=== PATIENT | male | born 1945 | race Native Hawaiian/Other Pacific Islander ===

== ENCOUNTER 2018-11-28 07:17 | Inpatient (IN) | payer OTHER ==
--- NOTE | 2018-11-28 07:42 | C.PDOC ---
History Of Present Illness 73 y/o male pt sent to the ER with stage 5 chronic kidney disease by dredge captain Dr. Bacon due to kidney function worsening. Pt reports Dr. Bacon wants him to start dialysis and told him to come to the hospital. Pt has no acute complaints at this time. Time Seen by Provider: 11/28/18 07:20 History Per: Patient History/Exam Limitations: no limitations Onset/Duration Of Symptoms: Days Current Symptoms Are (Timing): Still Present Past Medical History Reviewed: Historical Data, Nursing Documentation, Vital Signs Family History: States: No Known Family Hx Review Of Systems Constitutional: Positive for: Other (sent to ER to start dialysis ). Negative for: Fever, Chills Eyes: Negative for: Pain Cardiovascular: Negative for: Chest Pain Respiratory: Negative for: Cough, Shortness of Breath Gastrointestinal: Negative for: Nausea, Vomiting, Abdominal Pain, Diarrhea, Constipation Genitourinary: Negative for: Dysuria Musculoskeletal: Negative for: Neck Pain, Back Pain Skin: Negative for: Rash Neurological: Negative for: Weakness, Numbness Psych: Negative for: Anxiety Physical Exam - Physical Exam Appears: Non-toxic, No Acute Distress, Other (thin) Skin: Warm, Dry Head: Normacephalic Eye(s): bilateral: Normal Inspection Oral Mucosa: Moist Throat: Normal Neck: Normal ROM, Supple Chest: Symmetrical Cardiovascular: Rhythm Regular Respiratory: Normal Breath Sounds Neurological/Psych: Oriented x3, Normal Speech ED Course And Treatment - Laboratory Results Result Diagrams: 11/28/18 08:03 11/28/18 08:03 Medical Decision Making Medical Decision Making: Impression: Dialysis Plans: -- chem labs -- blood work -- EKG -- CXR Chest XR results: Accession No. : [id number] Patient Name / ID : MAHENDRA Alegria / [id number] Exam Date : 11/28/2018 08:02:00 ( Approved ) Study Comment : Sex / Age : M / [id number] Creator : neftali moran Dictator : Bhargavi Rincon MD Senior Maintenance Mechanic : Personnel Associate : Bhargavi Rincon MD Approver2 : Report Date : 11/28/2018 08:06:40 My Comment : Date of service: 11/28/2018 HISTORY: admission, esrd on hd COMPARISON: No prior. FINDINGS: LUNGS: The lungs are hyperinflated and there is peribronchial thickening with chronic changes in both lungs. PLEURA: No pleural effusions or pneumothorax. CARDIOVASCULAR: There is mild cardiomegaly. No aortic atherosclerotic calcifications present. OSSEOUS STRUCTURES: Within normal limits for the patient's age. VISUALIZED UPPER ABDOMEN: Normal. OTHER FINDINGS: None. IMPRESSION: No active pulmonary disease. COPD. 9:12 am EKG shows sinus bradycardia at 54bpm with non-specific st changes. Bun/creatini ne elevated consistent with worsening CKD. K+ WNL. Accepted by Dr. Harp to his service. Disposition - Disposition Disposition: HOSPITALIZED Disposition Time: 07:59 Condition: FAIR - Clinical Impression Clinical Impression: ESRD (end stage renal disease) - Scribe Statement The provider has reviewed the documentation as recorded by the Scribe Elmira Prado Provider Attestation: All medical record entries made by the Scribe were at my direction and personally dictated by me. I have reviewed the chart and agree that the record accurately reflects my personal performance of the history, physical exam, medical decision making, and the department course for this patient. I have also personally directed, reviewed, and agree with the discharge instructions and disposition.
[2018-11-28 08:12] LABS: BASO # 0.1 K/uL (0.0-0.2); BASO % 1.7 % (0.0-2.0); EOS % 1.4 % (0.0-4.0); HEMOGLOBIN 10.2 g/dL (12.0-18.0); LYMPH # 0.8 K/uL (1.0-4.3); LYMPH % 22.6 % (20.0-40.0); MEAN CORPUSCULAR HGB CONC 31.5 g/dL (33.0-37.0); MEAN PLATELET VOLUME 8.6 fL (7.2-11.7); MONO # 0.2 K/uL (0.0-0.8); MONO % 6.8 % (0.0-10.0); NEUT # 2.4 K/uL (1.8-7.0); NEUT % 67.5 % (50.0-75.0); NRBC % 0.1 % (0.0-2.0); RBC 4.63 Mil/uL (4.40-5.90); RED CELL DISTRIBUTION WIDTH 20.5 % (11.5-14.5); WHITE BLOOD COUNT 3.6 K/uL (4.8-10.8)
[2018-11-28 08:18] LABS: MEAN CELL VOLUME 69.8 fL (80.0-94.0)
--- NOTE | 2018-11-28 08:33 | RAD ---
Date of service: 11/28/2018 HISTORY: admission, esrd on hd COMPARISON: No prior. FINDINGS: LUNGS: The lungs are hyperinflated and there is peribronchial thickening with chronic changes in both lungs. PLEURA: No pleural effusions or pneumothorax. CARDIOVASCULAR: There is mild cardiomegaly. No aortic atherosclerotic calcifications present. OSSEOUS STRUCTURES: Within normal limits for the patient's age. VISUALIZED UPPER ABDOMEN: Normal. OTHER FINDINGS: None. IMPRESSION: No active pulmonary disease. COPD.
[2018-11-28 09:06] LABS: ALB/GLOB RATIO 1.3 (1.0-2.1); ALBUMIN 4.4 g/dL (3.5-5.0)
--- NOTE | 2018-11-28 10:45 | CP.PCM.CON ---
History of Present Illness - History of Present Illness History of Present Illness: Consult note for Dr. López. HPI: 73 y/o male with history of ESRD sent to ED by [employer] assistant manager, Dr. Bacon, due to worsening kidney function. Surgery was consulted for dialysis access for emergent hemodialysis and AV fistula placement. Pt has no acute complaints at this time. Denies fever, chills, nausea, vomiting, abdominal pain, diarrhea, confusion, chest pain and shortness of breath. PMHx: ESRD, gout, HTN, anemia PSHx: Denies Meds: Colchicine 500mcg PO BID, tamsulosin 0.4mg PO HS, amlodipine 10mg PO daily Allergy: NKDA Social: denies tobacco, alcohol, drugs Family hx: denies Review of Systems: -Gen: No fever, No chills, No headache, No lethargy, No weakness. -HEENT: No dizziness, No change in vision, No change in hearing, No sore throat, No dysphagia, No nasal congestion, No mucous. -Cardio: No chest pain, No palpitations, No lower extremity edema, No orthopnea. -Resp: No cough, No dyspnea, No hemoptysis, No wheezing, No pain on inspiration. -GI: No abdominal pain, No nausea/vomiting, No diarrhea/constipation, No hematochezia, No hematemesis. -: No dysuria, No urinary freq, No incontinence, No hematuria, No change in urinary stream. -MSK: No back pain, No muscle weakness, No radiating pain. -Skin: No itching, No rash, No lesions. -Neuro: No confusion, No numbness, No tingling, No focal weakness, No radicular pain, No syncope. -Psych: No anxiety, No depression, No H/I, No S/I, No hallucinations. Past Patient History - Past Social History Smoking Status: Never Smoked - CARDIAC Hx Hypertension: Yes - PULMONARY Hx Respiratory Disorders: No - NEUROLOGICAL Hx Neurological Disorder: No - RENAL Hx Chronic Kidney Disease: Yes (stage 5) - MUSCULOSKELETAL/RHEUMATOLOGICAL Hx Gout: Yes - PSYCHIATRIC Hx Substance Use: No - SURGICAL HISTORY Hx Surgeries: No Meds Allergies/Adverse Reactions: Allergies Allergy/AdvReac Type Severity Reaction Status Date / Time No Known Allergies Allergy Verified 11/28/18 07:38 Physical Exam - Constitutional Appears: Non-toxic, No Acute Distress - Head Exam Head Exam: ATRAUMATIC, NORMOCEPHALIC - Eye Exam Eye Exam: EOMI, Normal appearance - ENT Exam ENT Exam: Mucous Membranes Moist - Neck Exam Neck exam: Positive for: Normal Inspection - Respiratory Exam Respiratory Exam: Clear to Auscultation Bilateral, NORMAL BREATHING PATTERN. absent: Rales, Rhonchi, Wheezes, Respiratory Distress - Cardiovascular Exam Cardiovascular Exam: REGULAR RHYTHM, +S1, +S2. absent: Systolic Murmur - GI/Abdominal Exam GI & Abdominal Exam: Normal Bowel Sounds, Soft. absent: Guarding, Rebound, Tenderness - Extremities Exam Extremities exam: Positive for: full ROM, normal inspection, pedal pulses present. Negative for: pedal edema, tenderness - Neurological Exam Neurological exam: Alert, CN II-XII Intact (grossly), Oriented x3 - Psychiatric Exam Psychiatric exam: Normal Affect, Normal Mood - Skin Skin Exam: Dry, Intact, Normal Color, Warm Results - Vital Signs Recent Vital Signs: Last Vital Signs Temp 97.6 F 11/28/18 08:56 Pulse 62 11/28/18 08:56 Resp 16 11/28/18 08:56 BP 125/81 11/28/18 08:56 Pulse Ox 100 11/28/18 08:56 - Labs Result Diagrams: 11/28/18 08:03 11/28/18 08:03 Labs: Laboratory Results - last 24 hr 11/28/18 11/28/18 11/28/18 08:03 08:03 08:03 WBC 3.6 L RBC 4.63 Hgb 10.2 L Hct 32.3 L MCV 69.8 L MCH 22.0 L MCHC 31.5 L RDW 20.5 H Plt Count 224 MPV 8.6 Neut % (Auto) 67.5 Lymph % (Auto) 22.6 Mayes % (Auto) 6.8 Eos % (Auto) 1.4 Baso % (Auto) 1.7 Neut # (Auto) 2.4 Lymph # (Auto) 0.8 L Mayes # (Auto) 0.2 Eos # (Auto) 0.0 Baso # (Auto) 0.1 Differential Comment PT 11.0 INR 1.0 APTT 33 Sodium 133 Potassium 3.8 Chloride 102 Carbon Dioxide 18 L Anion Gap 18 BUN 140 H* Creatinine 6.2 H Est GFR ( Amer) 11 Est GFR (Non-Af Amer) 9 Random Glucose 105 Calcium 9.0 Total Bilirubin 0.4 AST 28 ALT 19 L Alkaline Phosphatase 85 Total Protein 7.8 Albumin 4.4 Globulin 3.4 Albumin/Globulin Ratio 1.3 Assessment & Plan - Assessment and Plan (Free Text) Assessment: 73 y/o male with history of ESRD with worsening kidney function admitted for emergent dialysis. Surgery consulted for dialysis access and AV fistula placement. Plan: -permacath placement 11/28 -F/u Vein mapping for AV fistula -Plan for AV fistula placement 11/30 Further recs as per Dr. López. Hazel Quintero, PGY-1
--- NOTE | 2018-11-28 11:29 | CP.PCM.CON ---
History of Present Illness - History of Present Illness History of Present Illness: pt is seen and examined, full consult is dictated # 1. HTn 2. ESRD 3. Gout 4. Anemia 5. ? dm vasuclar surgery consult for perma cath and avf hd after access check hept.b.c serology, saran,c3,c4, po4, pth Past Patient History - Past Social History Smoking Status: Never Smoked - CARDIAC Hx Hypertension: Yes - PULMONARY Hx Respiratory Disorders: No - NEUROLOGICAL Hx Neurological Disorder: No - RENAL Hx Chronic Kidney Disease: Yes (stage 5) - MUSCULOSKELETAL/RHEUMATOLOGICAL Hx Gout: Yes - PSYCHIATRIC Hx Substance Use: No - SURGICAL HISTORY Hx Surgeries: No Meds Allergies/Adverse Reactions: Allergies Allergy/AdvReac Type Severity Reaction Status Date / Time No Known Allergies Allergy Verified 11/28/18 07:38 Results - Vital Signs Recent Vital Signs: Last Vital Signs Temp 97.6 F 11/28/18 08:56 Pulse 62 11/28/18 08:56 Resp 16 11/28/18 08:56 BP 125/81 11/28/18 08:56 Pulse Ox 100 11/28/18 08:56 - Labs Result Diagrams: 11/28/18 08:03 11/28/18 08:03 Labs: Laboratory Results - last 24 hr 11/28/18 11/28/18 11/28/18 08:03 08:03 08:03 WBC 3.6 L RBC 4.63 Hgb 10.2 L Hct 32.3 L MCV 69.8 L MCH 22.0 L MCHC 31.5 L RDW 20.5 H Plt Count 224 MPV 8.6 Neut % (Auto) 67.5 Lymph % (Auto) 22.6 White % (Auto) 6.8 Eos % (Auto) 1.4 Baso % (Auto) 1.7 Neut # (Auto) 2.4 Lymph # (Auto) 0.8 L White # (Auto) 0.2 Eos # (Auto) 0.0 Baso # (Auto) 0.1 Differential Comment PT 11.0 INR 1.0 APTT 33 Sodium 133 Potassium 3.8 Chloride 102 Carbon Dioxide 18 L Anion Gap 18 BUN 140 H* Creatinine 6.2 H Est GFR ( Amer) 11 Est GFR (Non-Af Amer) 9 Random Glucose 105 Calcium 9.0 Total Bilirubin 0.4 AST 28 ALT 19 L Alkaline Phosphatase 85 Total Protein 7.8 Albumin 4.4 Globulin 3.4 Albumin/Globulin Ratio 1.3
[2018-11-28 11:56] LABS: IRON 99 ug/dL (49-181)
[2018-11-28 12:03] LABS: HEPATITIS B SURFACE AG Negative (NEGATIVE)
[2018-11-28 12:05] LABS: % IRON SATURATION 36 (20-55); TOTAL IRON BINDING CAPACITY 276 ug/dL (250-450)
[2018-11-28 12:10] LABS: HEPATITIS A IGM NEGATIVE (NEGATIVE); HEPATITIS B CORE AB NEGATIVE (NEGATIVE)
[2018-11-28 12:12] LABS: HEPATITIS B SURFACE AG Negative (NEGATIVE)
[2018-11-28 12:17] LABS: HEPATITIS B CORE AB NEGATIVE (NEGATIVE)
[2018-11-28 12:20] LABS: HEPATITIS C ANTIBODY NEGATIVE (NEGATIVE)
[2018-11-28 12:29] LABS: HEPATITIS C ANTIBODY NEGATIVE (NEGATIVE)
[2018-11-28] MEDS: Dextrose 5%/0.9% NS 1,000 ML IV SCH (12:50)
[2018-11-28] MEDS ORDERED: HEPARIN-NS 5,000 UNITS/500 ML 5,000 UNIT/500 ML BAG IV ONE (13:31)
[2018-11-28] MEDS ORDERED: Lidocaine 2% MPF (5 ml) Inj ONE (13:32)
[2018-11-28] MEDS ORDERED: ceFAZolin 1 gm in NS 1 GM/100 ML BAG IVPB ONE (13:49)
[2018-11-28] MEDS ORDERED: Propofol 10 mg/ml Inj (20 ML) ONE (13:54)
[2018-11-28] MEDS ORDERED: Midazolam 2 MG/2 ML VIAL ONE (13:55)
[2018-11-28] MEDS ORDERED: Lidocaine Hydrochloride 5 ML INJ ONE (14:28)
--- NOTE | 2018-11-28 14:44 | PCM.SURG1 ---
Surgeon's Initial Post Op Note - Surgeon's Notes Surgeon: Dr. López E Commerce Merchant: Dr. López Type of Anesthesia: MAC Pre-Operative Diagnosis: ESRD requiring dialysis Operative Findings: see dictation Post-Operative Diagnosis: same Operation Performed: ultrasound-guided permacath placement w/ intra-operative fluoroscopy Specimen/Specimens Removed: none Estimated Blood Loss: EBL {In ML}: 10 Blood Products Given: N/A Drains Used: No Drains Post-Op Condition: Good Date of Surgery/Procedure: 11/28/18 Time of Surgery/Procedure: 14:43
--- NOTE | 2018-11-28 15:24 | RAD ---
Date of service: 11/28/2018 HISTORY: permacath placement COMPARISON: 11/28/2018 FINDINGS: The right PermCath terminates at the cavoatrial junction. LUNGS: The lungs are hyperinflated and there is peribronchial thickening with chronic changes in both lungs. There is mild pulmonary venous congestion. No focal consolidation. PLEURA: No pleural effusions or pneumothorax. CARDIOVASCULAR: Mild cardiomegaly. There are aortic atherosclerotic calcifications present. OSSEOUS STRUCTURES: Within normal limits for the patient's age. VISUALIZED UPPER ABDOMEN: Normal. OTHER FINDINGS: None. IMPRESSION: Right PermCath terminates at the cavoatrial junction. Mild cardiomegaly and pulmonary venous congestion. Background of COPD.
[2018-11-28] MEDS ORDERED: Epoetin Alfa 10,000 unit/ml Dialysis IV ONE (17:00)
[2018-11-28] MEDS ORDERED: Epoetin Alfa Dialysis 2000 U/ML Inj IV ONE (17:00)
[2018-11-28] MEDS ORDERED: Paricalcitol 2 mcg/ml Inj IV ONE (17:00)
--- NOTE | 2018-11-29 00:52 | OP ---
PROCEDURE DATE: 11/28/2018 PREOPERATIVE DIAGNOSIS: Renal failure. POSTOPERATIVE DIAGNOSIS: Renal failure. PROCEDURE CARRIED OUT: Placement of Perm-A-Cath in the right jugular vein with C-arm fluoroscopy, ultrasound-guided puncture, and micropuncture technique. SURGEON: Jack López Jr., MD [employer] OPERATOR: Veronica Cardoza DO ANESTHESIA: Local with sedation. ANESTHESIOLOGIST: Lara Sanchez CRNA. INDICATIONS: The patient is an elderly Citizen [place] man, admitted to the hospital, requires urgent dialysis. OPERATIVE FINDINGS: Catheter was inserted uneventfully via the jugular vain. DESCRIPTION OF PROCEDURE: The patient was given intravenous antibiotics. Using ultrasound guidance and micropuncture technique, the right jugular vein was punctured. Under fluoroscopic control, the catheter was advanced centrally, was exchanged for stiff guidewire and then the catheter was deployed with the tip in the superior vena cava of the right atrial junction, brought out on the right chest wall and originated on the right chest wall, terminated in the superior vena cava and then went to the jugular vein. It was flushed with heparinized saline with good return and good flush. Operation carried out was Perm-A-Cath in the right jugular vein with C-arm fluoroscopy, ultrasound-guided puncture. Ultrasound images of the neck showed the vein was 14 mm in diameter with normal compressibility and no intraluminal thrombosis. Jack López Jr., MD
--- NOTE | 2018-11-29 01:35 | CON ---
DATE: 11/28/2018 RENAL CONSULTATION LOCATION: The patient is located in room 568, bed B. REQUESTED BY: Skye Harp MD REASON FOR RENAL CONSULTATION: End-stage renal disease and for initiation of the renal replacement therapy. HISTORY OF PRESENT ILLNESS: Mr. Fallon is a 73-year-old very thin-built, cachectic, very pleasant [place] male with a past medical history significant for hypertension, gout, chronic kidney disease for few years, and anemia, who was sent to the office yesterday and found to have a recent blood work from 11/20/2018 with a BUN of 128 and creatinine of 5.5 with a GFR about 7 or 8 mL per minute, who was advised renal replacement therapy and advised to go to the emergency room for initiation of renal replacement therapy. The patient denied any chest pain or palpitation. Denies any fever or cough. Denies any nausea or vomiting. Appetite is fair. Denies any urinary symptoms. Denies any edema of the legs. PAST MEDICAL HISTORY: Significant for longstanding hypertension, gout, chronic kidney disease, and anemia. PAST SURGICAL HISTORY: Denies. ALLERGIES: NO KNOWN DRUG ALLERGIES. SOCIAL HISTORY: Denies any smoking, denies any alcohol or drugs. PERSONAL HISTORY: He is , and he has a very supportive family. CURRENT MEDICATIONS: Include IV fluids D5 normal saline at 50 mL per hour, Flomax 0.4 mg p.o. at bedtime, influenza vaccine x1, amlodipine 10 mg p.o. daily, pneumococcal vaccine x1, and Zofran 4 mg IV every 6 hours p.r.n. HOME MEDICATIONS: Include colchicine 500 p.o. b.i.d., Flomax, amlodipine, and Procrit. REVIEW OF SYSTEMS: Significant for worsening renal function and feeling weak, and all other review of systems are reviewed and are negative. PHYSICAL EXAMINATION: As follows: VITAL SIGNS: Blood pressure 120/79, pulse 60, respirations 16, temperature 97.3. Height 5 feet 5 inches, and weight is 90 pounds. GENERAL: Mr. Fallon is a 73-year-old elderly, thin-built, cachectic [place] male, not in acute distress. HEENT: Pupils normal, reactive to light and accommodation. Conjunctivae pink. Sclerae anicteric. Tongue is moist, and trachea is midline. LUNGS: Symmetric on both sides. Bilateral breath sounds present. Clear to auscultation. CARDIOVASCULAR SYSTEM: [place] at the fifth intercostal space and midclavicular line. S1, S2 audible. No murmur or gallop. ABDOMEN: Normal in appearance, soft, tympanitic. No guarding. No rigidity. No hepatosplenomegaly. CENTRAL NERVOUS SYSTEM: The patient is alert, awake, oriented x3. Nonfocal neuro examination. Cranial nerves II through XII grossly intact. Sensory and motor system is within normal limits. EXTREMITIES: No cyanosis. No clubbing. No edema. LABORATORY DATA: Include as follows: As of 11/28/2018, WBC 3.6, hemoglobin 10.2, hematocrit is 32.3, platelets 224. PT 11, PTT 33. Sodium 133, potassium 3.8, chloride 102, CO2 18, BUN of 140, creatinine 6.2, and glucose is 105, calcium is 9. Phosphorus 5.4, iron 99, TIBC 276, saturation 36, ferritin is 288. Total bili 0.4, AST 28, ALT 19, alkaline phosphatase 85, total protein 7.8, and albumin is 4.4. Hepatitis A IgM antibody is negative, hepatitis B surface antigen is negative, hepatitis B surface antibody is negative, hepatitis B core antibody IgM is negative, and hepatitis C antibody is negative. Chest x-ray, no pleural effusion or pneumothorax, and right PermCath terminates at the cavoatrial junction, mild cardiomegaly. ASSESSMENT AND PLAN: In summary, Mr. Fallon is a 73-year-old elderly, cachectic, thin-built [place] male with a history of hypertension, gout, end-stage renal disease, anemia with worsening renal function, and acidosis. 1. 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 2. Metabolic acidosis. 3. Hypertension. 4. Gout, asymptomatic. Discussed with the patient and the patient's family in detail regarding the need for renal replacement therapy. Agreed for the hemodialysis, and the patient signed the consent for initiation of the renal replacement therapy and dialysis. Vascular surgery consult for PermCath placement, AV fistula placement. We will schedule for hemodialysis after PermCath placement. Continue his current medications, Flomax, Norvasc, and also we will add Nephro-Brandy 1 tablet daily and Procrit during dialysis, Zemplar during dialysis. We will follow with you. Thank you for allowing me to participate in your patient's care, and we will request social service consult for outpatient hemodialysis unit placement. Thank you for allowing me to participate in your patient's care. Simran Bacon MD
[2018-11-29 07:30] LABS: BASO % 0.9 % (0.0-2.0); EOS % 0.6 % (0.0-4.0); HEMOGLOBIN 9.7 g/dL (12.0-18.0); LYMPH # 0.6 K/uL (1.0-4.3); LYMPH % 13.1 % (20.0-40.0); MEAN CELL VOLUME 69.7 fL (80.0-94.0); MEAN CORPUSCULAR HGB CONC 31.6 g/dL (33.0-37.0); MEAN PLATELET VOLUME 8.8 fL (7.2-11.7); MONO # 0.3 K/uL (0.0-0.8); MONO % 6.3 % (0.0-10.0); NEUT # 3.9 K/uL (1.8-7.0); NEUT % 79.1 % (50.0-75.0); NRBC % 0.1 % (0.0-2.0); RBC 4.41 Mil/uL (4.40-5.90); RED CELL DISTRIBUTION WIDTH 19.9 % (11.5-14.5); WHITE BLOOD COUNT 4.9 K/uL (4.8-10.8)
[2018-11-29 08:19] LABS: ALB/GLOB RATIO 1.2 (1.0-2.1); ALBUMIN 3.8 g/dL (3.5-5.0); CALCIUM 8.4 mg/dl (8.6-10.4)
--- NOTE | 2018-11-29 08:24 | RAD ---
Date of service: 11/28/2018 PROCEDURE: Intraoperative Fluoroscopy. HISTORY: RENAL FAILURE FINDINGS: Fluoroscopic assistance was provided for PermCath placement. Please refer to the operative report from Dr. Jack López.
[2018-11-29] MEDS: Dextrose 5%/0.9% NS 1,000 ML IV SCH (09:04)
--- NOTE | 2018-11-29 10:18 | CP.PCM.PN ---
Subjective - Date & Time of Evaluation Date of Evaluation: 11/29/18 Time of Evaluation: 10:17 - Subjective Subjective: pt is seen and examined, follow up consult is dictated #[id number] Objective - Vital Signs/Intake and Output Vital Signs (last 24 hours): Temp Pulse Resp BP Pulse Ox 98.0 F 57 L 20 132/79 100 11/29/18 07:00 11/29/18 07:27 11/29/18 07:00 11/29/18 07:00 11/29/18 07:00 Intake and Output: 11/29/18 11/29/18 06:59 18:59 Intake Total 400 Balance 400 - Medications Medications: Current Medications Amlodipine Besylate (Norvasc) 10 mg PO DAILY [facility] Last Admin: 11/29/18 09:28 Dose: Not Given Heparin Sodium (Porcine) (Heparin) 5,000 units SC Q12 [facility] Last Admin: 11/29/18 09:28 Dose: Not Given Dextrose/Sodium Chloride (Dextrose 5%/0.9% Ns 1000 Ml) 1,000 mls @ 50 mls/hr IV .Q20H [facility] Last Admin: 11/29/18 09:04 Dose: 50 mls/hr Influenza Virus Vaccine (Flucelvax Quad [id number] Syr) 60 mcg IM .ONCE ONE Stop: 11/30/18 10:01 Ondansetron HCl (Zofran Inj) 4 mg IVP Q6 PRN PRN Reason: Nausea/Vomiting Last Admin: 11/28/18 19:26 Dose: 4 mg Pneumococcal Polyvalent Vaccine (Pneumovax 23 Vaccine) 0.5 ml IM .ONCE ONE Stop: 11/30/18 10:01 Tamsulosin HCl (Flomax) 0.4 mg PO HS [facility] Last Admin: 11/28/18 21:29 Dose: 0.4 mg - Labs Labs: 11/29/18 07:12 11/29/18 07:12 PT 11.0 SECONDS (9.7-12.2) 11/28/18 08:03 INR 1.0 11/28/18 08:03 APTT 33 SECONDS (21-34) 11/28/18 08:03
--- NOTE | 2018-11-29 12:07 | CP.PCM.PN ---
Subjective - Date & Time of Evaluation Date of Evaluation: 11/29/18 Time of Evaluation: 12:03 - Subjective Subjective: Vascular Surgery Dr. López Pt S&E @dialysis. Pt had permacath placement yesterday. pt tolerated procedure well w/ no complications. No acute events overnight. pt has no complaints. Objective - Vital Signs/Intake and Output Vital Signs (last 24 hours): Temp Pulse Resp BP Pulse Ox 97.3 F L 57 L 16 146/91 H 100 11/29/18 09:45 11/29/18 09:45 11/29/18 09:45 11/29/18 11:00 11/29/18 09:45 Intake and Output: 11/29/18 11/29/18 06:59 18:59 Intake Total 400 Balance 400 - Medications Medications: Current Medications Amlodipine Besylate (Norvasc) 10 mg PO DAILY [facility] Last Admin: 11/29/18 09:28 Dose: Not Given Heparin Sodium (Porcine) (Heparin) 5,000 units SC Q12 [facility] Last Admin: 11/29/18 09:28 Dose: Not Given Dextrose/Sodium Chloride (Dextrose 5%/0.9% Ns 1000 Ml) 1,000 mls @ 50 mls/hr IV .Q20H [facility] Last Admin: 11/29/18 09:04 Dose: 50 mls/hr Influenza Virus Vaccine (Flucelvax Quad [id number] Syr) 60 mcg IM .ONCE ONE Stop: 11/30/18 10:01 Ondansetron HCl (Zofran Inj) 4 mg IVP Q6 PRN PRN Reason: Nausea/Vomiting Last Admin: 11/28/18 19:26 Dose: 4 mg Pneumococcal Polyvalent Vaccine (Pneumovax 23 Vaccine) 0.5 ml IM .ONCE ONE Stop: 11/30/18 10:01 Tamsulosin HCl (Flomax) 0.4 mg PO HS [facility] Last Admin: 11/28/18 21:29 Dose: 0.4 mg - Labs Labs: 11/29/18 07:12 11/29/18 07:12 PT 11.0 SECONDS (9.7-12.2) 11/28/18 08:03 INR 1.0 11/28/18 08:03 APTT 33 SECONDS (21-34) 11/28/18 08:03 - Constitutional Appears: Non-toxic, No Acute Distress - Head Exam Head Exam: NORMAL INSPECTION - Eye Exam Eye Exam: Normal appearance - ENT Exam ENT Exam: Mucous Membranes Moist - Neck Exam Additional comments: RIJ permacath in place. dressing c/d/i no hematoma appreciated - Respiratory Exam Respiratory Exam: NORMAL BREATHING PATTERN. absent: Accessory Muscle Use, Respiratory Distress - Cardiovascular Exam Cardiovascular Exam: REGULAR RHYTHM. absent: Bradycardia, Tachycardia - GI/Abdominal Exam GI & Abdominal Exam: Soft. absent: Tenderness - Extremities Exam Extremities Exam: Normal Inspection - Neurological Exam Neurological Exam: Alert, Awake, Oriented x3 - Psychiatric Exam Psychiatric exam: Normal Affect, Normal Mood - Skin Skin Exam: Dry, Intact, Normal Color, Warm Assessment and Plan - Assessment and Plan (Free Text) Assessment: 73 y/o M w/ new-onset ESRD now requiring HD Plan: - f/u vein mapping - plan for OR tomorrow (11/30) for AVF creation - NPO@[place] - cont medical management Pt discussed w/ Dr. Rene Cardoza DO PGY3
--- NOTE | 2018-11-29 17:35 | CP.PCM.HP ---
History of Present Illness - History of Present Illness History of Present Illness: CC ESRD HPI 73 y/o male with history of ESRD sent to ED by fabric stretcher, Dr. Bacon, due to worsening kidney function. Surgery was consulted for dialysis access for emergent hemodialysis and AV fistula placement. Pt has no acute complaints at this time. Denies fever, chills, nausea, vomiting, abdominal pain, diarrhea, confusion, chest pain and shortness of breath. Present on Admission - Present on Admission Any Indicators Present on Admission: No Review of Systems - Constitutional Constitutional: Anorexia, Fatigue, Weakness - EENT Ears: Decreased Hearing - Cardiovascular Cardiovascular: Lightheadedness - Respiratory Respiratory: Dyspnea - Gastrointestinal Gastrointestinal: Nausea - Musculoskeletal Musculoskeletal: Muscle Weakness Past Patient History - Past Medical History & Family History Past Medical History?: Yes - Past Social History Smoking Status: Never Smoked - CARDIAC Hx Hypertension: Yes - PULMONARY Hx Respiratory Disorders: No - NEUROLOGICAL Hx Neurological Disorder: No - HEENT Hx HEENT Problems: No - RENAL Hx Chronic Kidney Disease: Yes (stage 5) - ENDOCRINE/METABOLIC Hx Endocrine Disorders: No - HEMATOLOGICAL/ONCOLOGICAL Hx Blood Disorders: No - INTEGUMENTARY Hx Dermatological Problems: No - MUSCULOSKELETAL/RHEUMATOLOGICAL Hx Gout: Yes - GASTROINTESTINAL Hx Gastrointestinal Disorders: No - GENITOURINARY/GYNECOLOGICAL Hx Genitourinary Disorders: No - PSYCHIATRIC Hx Substance Use: No - SURGICAL HISTORY Hx Surgeries: No - ANESTHESIA Hx Anesthesia: No Hx Anesthesia Reactions: No Hx Malignant Hyperthermia: No Has any member of the family had a problem w/ anesthesia?: No Meds Allergies/Adverse Reactions: Allergies Allergy/AdvReac Type Severity Reaction Status Date / Time No Known Allergies Allergy Verified 11/28/18 07:38 Physical Exam - Constitutional Appears: Non-toxic - Head Exam Head Exam: NORMAL INSPECTION - Eye Exam Eye Exam: absent: Scleral icterus - ENT Exam ENT Exam: Mucous Membranes Moist - Neck Exam Neck exam: Positive for: Full Rom - Respiratory Exam Respiratory Exam: Clear to Auscultation Bilateral - Cardiovascular Exam Cardiovascular Exam: REGULAR RHYTHM - GI/Abdominal Exam GI & Abdominal Exam: Soft - Extremities Exam Extremities exam: Negative for: pedal edema - Neurological Exam Neurological exam: Alert, Oriented x3 Results - Vital Signs Recent Vital Signs: Last Vital Signs Temp 97.9 F 11/29/18 15:00 Pulse 54 L 11/29/18 15:39 Resp 18 11/29/18 15:00 BP 138/80 11/29/18 15:00 Pulse Ox 100 11/29/18 15:00 - Labs Result Diagrams: 11/29/18 07:12 11/29/18 07:12 Labs: Laboratory Results - last 24 hr 11/28/18 11/29/18 11/29/18 11:09 07:12 07:12 WBC 4.9 RBC 4.41 Hgb 9.7 L Hct 30.7 L MCV 69.7 L MCH 22.0 L MCHC 31.6 L RDW 19.9 H Plt Count 160 MPV 8.8 Neut % (Auto) 79.1 H Lymph % (Auto) 13.1 L [place] % (Auto) 6.3 Eos % (Auto) 0.6 Baso % (Auto) 0.9 Neut # (Auto) 3.9 Lymph # (Auto) 0.6 L [place] # (Auto) 0.3 Eos # (Auto) 0.0 Baso # (Auto) 0.0 Sodium 133 Potassium 3.6 Chloride 99 Carbon Dioxide 23 Anion Gap 15 BUN 69 H Creatinine 3.8 H Est GFR ( Amer) 19 Est GFR (Non-Af Amer) 16 Random Glucose 114 H Calcium 8.4 L Total Bilirubin 0.3 AST 24 ALT 28 Alkaline Phosphatase 66 Total Protein 6.9 Albumin 3.8 Globulin 3.1 Albumin/Globulin Ratio 1.2 PTH Intact Whole Molec 350 H Assessment & Plan - Assessment and Plan (Free Text) Assessment: ESRD HTN Gout Anemia Plan: AV Fistula Vascular consult with Dr Mar Renal consult with Dr Bacon - Date & Time Date: 11/28/18 Time: 09:00
--- NOTE | 2018-11-29 17:46 | CP.PCM.PN ---
Subjective - Date & Time of Evaluation Date of Evaluation: 11/29/18 Time of Evaluation: 09:35 - Subjective Subjective: s/p permacath implant no complication Objective - Vital Signs/Intake and Output Vital Signs (last 24 hours): Temp Pulse Resp BP Pulse Ox 97.9 F 54 L 18 138/80 100 11/29/18 15:00 11/29/18 15:39 11/29/18 15:00 11/29/18 15:00 11/29/18 15:00 Intake and Output: 11/29/18 11/29/18 06:59 18:59 Intake Total 400 Balance 400 - Medications Medications: Current Medications Amlodipine Besylate (Norvasc) 10 mg PO DAILY [facility] Last Admin: 11/29/18 09:28 Dose: Not Given Heparin Sodium (Porcine) (Heparin) 5,000 units SC Q12 [facility] Last Admin: 11/29/18 09:28 Dose: Not Given Dextrose/Sodium Chloride (Dextrose 5%/0.9% Ns 1000 Ml) 1,000 mls @ 50 mls/hr IV .Q20H [facility] Last Admin: 11/29/18 09:04 Dose: 50 mls/hr Influenza Virus Vaccine (Flucelvax Quad [id number] Syr) 60 mcg IM .ONCE ONE Stop: 11/30/18 10:01 Ondansetron HCl (Zofran Inj) 4 mg IVP Q6 PRN PRN Reason: Nausea/Vomiting Last Admin: 11/28/18 19:26 Dose: 4 mg Pneumococcal Polyvalent Vaccine (Pneumovax 23 Vaccine) 0.5 ml IM .ONCE ONE Stop: 11/30/18 10:01 Tamsulosin HCl (Flomax) 0.4 mg PO HS [facility] Last Admin: 11/28/18 21:29 Dose: 0.4 mg - Labs Labs: 11/29/18 07:12 11/29/18 07:12 PT 11.0 SECONDS (9.7-12.2) 11/28/18 08:03 INR 1.0 11/28/18 08:03 APTT 33 SECONDS (21-34) 11/28/18 08:03 - Constitutional Appears: Non-toxic - Head Exam Head Exam: NORMAL INSPECTION - Eye Exam Eye Exam: absent: Scleral icterus - ENT Exam ENT Exam: Mucous Membranes Moist - Neck Exam Neck Exam: Full ROM - Respiratory Exam Respiratory Exam: Clear to Ausculation Bilateral - Cardiovascular Exam Cardiovascular Exam: REGULAR RHYTHM - GI/Abdominal Exam GI & Abdominal Exam: Soft - Extremities Exam Extremities Exam: absent: Pedal Edema Assessment and Plan - Assessment and Plan (Free Text) Assessment: ESRD HTN Anemia Gout Plan: Dialysis as per renal For AV fistula
--- NOTE | 2018-11-30 01:47 | PN ---
DATE: 11/29/2018 LOCATION: The patient is located in Room 568, Bed B. REQUESTED BY: Dr. Skye Harp. REASON FOR FOLLOWUP: End-stage renal disease, for continuation of hemodialysis. SUBJECTIVE: Mr. Fallon is a 73-year-old, elderly, very cachectic, thin-built [place] male with a history of hypertension, gout, anemia and end-stage renal disease, was admitted yesterday with worsening renal function and the patient underwent PermCath placement yesterday and started on hemodialysis. The patient is being dialyzed again today for second treatment and feeling better. No complaints. No chest pain, no palpitation. No fever. No cough. No abdominal pain. No nausea, vomiting, diarrhea. PHYSICAL EXAMINATION: VITAL SIGNS: Blood pressure 138/80, pulse , respirations 18, temperature 97.9, saturation 100%. Height 5 feet 5 inches and weight is 190 pounds. GENERAL: Mr. Fallon is a 73-year-old, elderly, thin-built, cachectic [place] male, moderately built, moderately nourished, not in acute distress. HEENT: Pupils normal, react to light and accommodation. Conjunctivae pink. Sclerae anicteric. Tongue is moist and trachea is midline. LUNGS: Symmetric on both sides. Bilateral breath sounds present. Clear to auscultation. CARDIOVASCULAR SYSTEM: S1, S2 audible. No murmur or gallop. ABDOMEN: Normal in appearance, soft, tympanitic. No guarding, no rigidity. No hepatosplenomegaly. CENTRAL NERVOUS SYSTEM: The patient is alert, awake, oriented x3. Nonfocal neuro examination. Cranial nerves II through XII grossly intact. Sensory and motor system is within normal limits. EXTREMITIES: No cyanosis, no clubbing, no edema. CURRENT MEDICATIONS: Include as follows: IV fluids of D5 half-normal saline at 50 mL/hour, Flomax 0.4 mg p.o. at bedtime, amlodipine 10 mg p.o. daily, subcu heparin 5000 units every 12 hours, PhosLo 667 mg p.o. b.i.d., and Zofran 4 mg IV every 6 hours p.r.n. LABORATORY DATA: Includes as follows: As of 11/29/2018, WBC 4.9, hemoglobin 9.7, hematocrit is 30.9, MCV 69.7 and platelets 160. Sodium 133, potassium 3.6, chloride 99, CO2 of 23, BUN 69, creatinine 3.8, glucose 114, calcium 8.4. Total bili 0.3, AST 24, ALT 28, alkaline phosphatase 66, total protein 6.9, albumin is 3.8. ASSESSMENT AND PLAN: In summary, Mr. Fallon is a 73 years old elderly [place] male with a history of longstanding hypertension, gout, end-stage renal disease, was admitted with worsening renal function, status post PermCath placement. 1. End-stage renal disease. Continue hemodialysis three times a week. The patient underwent dialysis yesterday and receiving second treatment today. Continue hemodialysis three times a week, Tuesday, Tuesday, and Tuesday. 2. Hypertension. Blood pressure is stable. Continue amlodipine. Repeat complete blood count, basic metabolic profile on Tuesday. We will follow up with you. Follow up with Vascular Surgery for arteriovenous fistula placement prior to the discharge. Thank you for allowing me to participate in your patient's care. Simran Bacon MD
[2018-11-30 07:54] LABS: HEMOGLOBIN 9.4 g/dL (12.0-18.0); MEAN CELL VOLUME 70.8 fL (80.0-94.0); MEAN CORPUSCULAR HEMOGLOBIN 21.5 pg (27.0-31.0); MEAN CORPUSCULAR HGB CONC 30.3 g/dL (33.0-37.0); MEAN PLATELET VOLUME 8.6 fL (7.2-11.7); RBC 4.37 Mil/uL (4.40-5.90); WHITE BLOOD COUNT 4.8 K/uL (4.8-10.8)
[2018-11-30 08:11] LABS: CALCIUM 8.6 mg/dl (8.6-10.4)
--- NOTE | 2018-11-30 08:55 | CP.PCM.PN ---
Subjective - Date & Time of Evaluation Date of Evaluation: 11/30/18 Time of Evaluation: 08:52 - Subjective Subjective: s/p permacath no chest pain no sob NAD for AV fistula today Objective - Vital Signs/Intake and Output Vital Signs (last 24 hours): Temp Pulse Resp BP Pulse Ox 97.2 F L 50 L 20 148/80 99 11/29/18 23:00 11/30/18 03:28 11/29/18 23:00 11/29/18 23:00 11/29/18 23:00 Intake and Output: 11/30/18 11/30/18 06:59 18:59 Intake Total 700 Balance 700 - Medications Medications: Current Medications Allopurinol (Zyloprim) 100 mg PO DAILY [facility] Amlodipine Besylate (Norvasc) 10 mg PO DAILY [facility] Last Admin: 11/29/18 09:28 Dose: Not Given Calcium Acetate (Phoslo) 667 mg PO BIDCC [facility] Heparin Sodium (Porcine) (Heparin) 5,000 units SC Q12 [facility] Last Admin: 11/29/18 21:09 Dose: 5,000 units Dextrose/Sodium Chloride (Dextrose 5%/0.9% Ns 1000 Ml) 1,000 mls @ 50 mls/hr IV .Q20H [facility] Last Admin: 11/29/18 09:04 Dose: 50 mls/hr Influenza Virus Vaccine (Flucelvax Quad [id number] Syr) 60 mcg IM .ONCE ONE Stop: 11/30/18 10:01 Ondansetron HCl (Zofran Inj) 4 mg IVP Q6 PRN PRN Reason: Nausea/Vomiting Last Admin: 11/28/18 19:26 Dose: 4 mg Pneumococcal Polyvalent Vaccine (Pneumovax 23 Vaccine) 0.5 ml IM .ONCE ONE Stop: 11/30/18 10:01 Tamsulosin HCl (Flomax) 0.4 mg PO HS [facility] Last Admin: 11/29/18 21:10 Dose: 0.4 mg Vitamin B Complex/Vit C/Folic Acid (Nephro-Brandy) 1 tab PO 0800 [facility] - Labs Labs: 11/30/18 07:48 11/30/18 07:48 PT 11.0 SECONDS (9.7-12.2) 11/28/18 08:03 INR 1.0 11/28/18 08:03 APTT 33 SECONDS (21-34) 11/28/18 08:03 - Constitutional Appears: No Acute Distress - Head Exam Head Exam: NORMAL INSPECTION - Eye Exam Eye Exam: absent: Scleral icterus - ENT Exam ENT Exam: Mucous Membranes Moist - Neck Exam Neck Exam: Full ROM - Respiratory Exam Respiratory Exam: Clear to Ausculation Bilateral - Cardiovascular Exam Cardiovascular Exam: REGULAR RHYTHM - GI/Abdominal Exam GI & Abdominal Exam: Soft - Extremities Exam Extremities Exam: absent: Pedal Edema - Neurological Exam Neurological Exam: Alert, Oriented x3 Assessment and Plan - Assessment and Plan (Free Text) Assessment: ESRD HTN GOUT Plan: Pt may go for surgery with acceptable risk.
[2018-11-30] MEDS: Multivitamin Vitamin B Complex (Nephro-Vite) Tab PO SCH (08:58)
[2018-11-30] MEDS ORDERED: Pneumococcal 23-Valent Vaccine IM ONE (10:00)
[2018-11-30] MEDS ORDERED: Influenza Vaccine 60 mcg/0.5 mL SYR (4YR UP) IM ONE (10:00)
--- NOTE | 2018-11-30 11:04 | VASCLAB ---
Date of service: 11/29/2018 PROCEDURE: Upper Extremity Venous Mapping HISTORY: Pre-op AV fistula PRIORS: None. TECHNIQUE: Bilateral upper extremity, internal jugular, subclavian, axillary, brachial, ulnar, radial, basilic and upper cephalic veins were evaluated. Flow was assessed with color Doppler, compressibility, assessment of phasic flow and augmentation response. Report prepared by JUN Hernandez FINDINGS: RIGHT: 1. Internal Jugular Vein: 2. Subclavian Vein: 3. Axillary Vein: Compressibility - Fully compressible: Thrombus - None 4. Brachial Vein: Compressibility - Fully compressible: Thrombus - None 5. Ulnar Vein:Compressibility - Fully compressible: Thrombus - None 6. Radial Vein:Compressibility - Fully compressible: Thrombus - None 7. Cephalic Vein: Not visualized. 8. Basilic Vein:Compressibility - Fully compressible: thrombus - None 8.1. Upper Arm: Proximal Diameter: 0.53cm. Mid Diameter: 0.52cm. Distal Diameter: 0.24cm. *branch at distal upper arm 0.47cm 8.2. Forearm: Proximal Diameter: 0.21cm. Mid Diameter:0.18cm. Distal Diameter: 0.18cm LEFT: 1. Internal Jugular Vein: Compressibility - Fully compressible: Thrombus - None : Flow - Phasic 2. Subclavian Vein:Compressibility - Fully compressible: Thrombus - None : Flow - Phasic 3. Axillary Vein: Compressibility - Fully compressible: Thrombus - None 4. Brachial Vein: Compressibility - Fully compressible: Thrombus - None 5. Ulnar Vein:Compressibility - Fully compressible: Thrombus - None 6. Radial Vein:Compressibility - Fully compressible: Thrombus - None 7. Cephalic Vein: Not visualized. 8. Basilic Vein:Compressibility - Fully compressible: thrombus - None 8.1. Upper Arm:Proximal Diameter: 0.62cm. Mid Diameter: 0.36cm. Distal Diameter: 0.37cm. *branch at antecubital level 0.24 cm. 8.2. Forearm: Proximal Diameter: 0.18cm. Mid Diameter:0.12cm. Distal Diameter: 0.17cm. OTHER FINDINGS: No evidence of venous thrombosis for the examined veins in bilateral upper extremities. IMPRESSION: Refer to the above listed measurements for vein size.
--- NOTE | 2018-11-30 11:11 | CP.PCM.PN ---
Subjective - Date & Time of Evaluation Date of Evaluation: 11/30/18 Time of Evaluation: 11:10 - Subjective Subjective: pt is seen and examined, follow up consult is dictated #[id number] for hd in am, for avf placement today Objective - Vital Signs/Intake and Output Vital Signs (last 24 hours): Temp Pulse Resp BP Pulse Ox 97.3 F L 57 L 20 156/87 H 99 11/30/18 08:00 11/30/18 08:00 11/30/18 08:00 11/30/18 08:00 11/30/18 08:00 Intake and Output: 11/30/18 11/30/18 06:59 18:59 Intake Total 1050 Balance 1050 - Medications Medications: Current Medications Allopurinol (Zyloprim) 100 mg PO DAILY [facility] Last Admin: 11/30/18 08:59 Dose: Not Given Amlodipine Besylate (Norvasc) 10 mg PO DAILY [facility] Last Admin: 11/29/18 09:28 Dose: Not Given Calcium Acetate (Phoslo) 667 mg PO BIDCC [facility] Last Admin: 11/30/18 08:58 Dose: Not Given Heparin Sodium (Porcine) (Heparin) 5,000 units SC Q12 [facility] Last Admin: 11/29/18 21:09 Dose: 5,000 units Dextrose/Sodium Chloride (Dextrose 5%/0.9% Ns 1000 Ml) 1,000 mls @ 50 mls/hr IV .Q20H [facility] Last Admin: 11/29/18 09:04 Dose: 50 mls/hr Ondansetron HCl (Zofran Inj) 4 mg IVP Q6 PRN PRN Reason: Nausea/Vomiting Last Admin: 11/28/18 19:26 Dose: 4 mg Tamsulosin HCl (Flomax) 0.4 mg PO HS [facility] Last Admin: 11/29/18 21:10 Dose: 0.4 mg Vitamin B Complex/Vit C/Folic Acid (Nephro-Brandy) 1 tab PO 0800 [facility] Last Admin: 11/30/18 08:58 Dose: Not Given - Labs Labs: 11/30/18 07:48 11/30/18 07:48 PT 11.0 SECONDS (9.7-12.2) 11/28/18 08:03 INR 1.0 11/28/18 08:03 APTT 33 SECONDS (21-34) 11/28/18 08:03
[2018-11-30] MEDS ORDERED: Propofol 10 mg/ml Inj (20 ML) ONE (14:33)
[2018-11-30] MEDS ORDERED: Midazolam 2 MG/2 ML VIAL ONE (14:33)
[2018-11-30] MEDS ORDERED: HEPARIN-NS 5,000 UNITS/500 ML 5,000 UNIT/500 ML BAG IV ONE (14:40)
[2018-11-30] MEDS ORDERED: ceFAZolin 1 gm in NS 2 GM/200 ML BAG IVPB ONE (14:40)
[2018-11-30] MEDS ORDERED: Sodium Chloride 0.9% 500 ML IV ONE (17:15)
--- NOTE | 2018-11-30 17:19 | PCM.SURG1 ---
Surgeon's Initial Post Op Note - Surgeon's Notes Surgeon: Dr. López Community Engagement Leader: Dr. Braxton PGY-3, Libra MS3 Type of Anesthesia: General LMA Pre-Operative Diagnosis: End Stage Renal Disease Operative Findings: See operative report Post-Operative Diagnosis: Same Operation Performed: Left arm Brachio-Basilic AVF Specimen/Specimens Removed: none Estimated Blood Loss: EBL {In ML}: 50 Blood Products Given: N/A Drains Used: No Drains Post-Op Condition: Good Date of Surgery/Procedure: 11/30/18 Time of Surgery/Procedure: 17:19
[2018-11-30] MEDS ORDERED: Oxycodone/Acetaminophen 5/325 mg Tab PO PRN (17:20)
--- NOTE | 2018-11-30 22:13 | CARD ---
APPROVED REPORT Date of service: 11/28/2018 EKG Measurement Heart [id number] <Conclusion> Sinus bradycardia Voltage criteria for left ventricular hypertrophy Abnormal ECG
--- NOTE | 2018-11-30 22:43 | PN ---
DATE: 11/30/2018 LOCATION: The patient is located in room 568, bed B. REQUESTED BY: Dr. Skye Harp. REASON FOR FOLLOWUP: End-stage renal disease, continuation of hemodialysis. SUBJECTIVE: Mr. Fallon is a 73-year-old, very pleasant, elderly, very thin-built, cachectic [place] male with history of hypertension, chronic kidney disease, end-stage renal disease, anemia, gout, who was admitted with worsening renal function, and the patient underwent right intrajugular PermCath placement on Tuesday, underwent hemodialysis on Tuesday and Tuesday. The patient is scheduled for AV fistula placement this morning. The patient is n.p.o. The patient denies any complaints. Denies any chest pain or palpitation. Denies any fever or cough. No abdominal pain. No nausea, vomiting, diarrhea. PHYSICAL EXAMINATION: VITAL SIGNS: As follows: Blood pressure 124/84, pulse 90, respirations 15 and temperature 98.5, saturation 100%. Height 5 feet 5 inches and weight is 90 pounds. HEENT: Pupils are normal, react to light and accommodation. Conjunctivae pink. Sclerae anicteric. Tongue is moist, and trachea is midline. LUNGS: Symmetric on both sides. Bilateral breath sounds present. Clear to auscultation. CARDIOVASCULAR SYSTEM: [place] at the fifth intercostal space, midclavicular line. S1, S2 audible. No murmur or gallop. ABDOMEN: Normal in appearance. Soft, tympanitic. No guarding, no rigidity. No hepatosplenomegaly. CENTRAL NERVOUS SYSTEM: The patient is alert, awake and oriented x3. Nonfocal neuro examination. Cranial nerves II-XII grossly intact. Sensory and motor system is within normal limits. EXTREMITIES: No cyanosis, no clubbing, and no edema. LABORATORY DATA: Includes as follows: As of 11/30/2018, WBC 4.8, hemoglobin 9.4, hematocrit is 31.0, MCV 70.8, platelets 137. Sodium 137, potassium 3.6, chloride 102, CO2 of 29, BUN 40, creatinine 3.3 and glucose 108, calcium is 8.6, phosphorus is 4.6, magnesium 1.5. ASSESSMENT AND PLAN: In summary, Mr. Fallon is a 73-year-old, elderly, very pleasant [place] male with a history of hypertension, gout, anemia, end-stage renal disease, who was admitted with worsening renal function and agreed for the renal replacement therapy, and the patient underwent right intrajugular PermCath placement on 09/27/2018 and underwent hemodialysis on 09/27/2018 and 09/28/2018 and the patient was scheduled for the arteriovenous fistula this afternoon. The patient underwent arteriovenous fistula placement this evening, left arm brachiobasilic arteriovenous fistula as per Dr. López. 1. End-stage renal disease. Continue hemodialysis three times a week, Tuesday, Tuesday, Tuesday, and follow up with the social service for outpatient hemodialysis unit placement. 2. Hypertension. Blood pressure is stable. Continue his current medication. 3. Anemia secondary to renal failure and rule out iron-deficiency anemia. 4. Gout, asymptomatic. We will schedule for hemodialysis in the morning. Follow up with social service and also we will add Epogen and Zemplar during hemodialysis and also we will add dietary supplement, Nepro 1 can by mouth daily. We will follow up with you. Thank you for allowing me to participate in your patient's care. Simran Bacon MD
--- NOTE | 2018-12-01 01:54 | OP ---
PROCEDURE DATE: 11/30/2018 PREOPERATIVE DIAGNOSIS: Renal failure. POSTOPERATIVE DIAGNOSIS: Renal failure. PROCEDURE CARRIED OUT: Brachiobasilic fistula, left arm. SURGEON: Jack López Jr., MD POURED WALL FOREMAN: Allie Braxton DO ANESTHESIOLOGIST: Domenica Beltran CRNA INDICATIONS FOR PROCEDURE: The patient is an older man with renal insufficiency now requiring dialysis by means of a catheter. OPERATIVE FINDINGS: A fistula was created between the cephalic vein and the brachial artery at the elbow. At the end of procedure, there was a good flow to the fistula and there was a palpable pulse at the wrist. DESCRIPTION OF PROCEDURE: The patient was given general anesthesia and intravenous antibiotics. Venodyne boots were applied. An incision was made directly over the vein which was previously identified on the skin by means of ultrasound. The adjacent artery was then mobilized at the bifurcation. Heparin was given. Loupe magnification was carried out with the anastomosis and rubber control was carried out on the vessels and end-to-side fistula was carried out and sewn together with fine Prolene sutures. After obtaining hemostasis, we closed the wounds. We reinforced any bleeding ____, checked again for hemostasis and then closed the skin with 5-0 nylon sutures. Blood loss of the procedure was less than 15 mL. Operation carried out is brachiobasilic fistula, left elbow. Jack López Jr., MD cc: Dr. Arleen Harp MD
[2018-12-01 07:43] LABS: HEMOGLOBIN 9.2 g/dL (12.0-18.0); MEAN CELL VOLUME 71.8 fL (80.0-94.0); MEAN CORPUSCULAR HEMOGLOBIN 21.4 pg (27.0-31.0); MEAN CORPUSCULAR HGB CONC 29.8 g/dL (33.0-37.0); MEAN PLATELET VOLUME 8.6 fL (7.2-11.7); RBC 4.29 Mil/uL (4.40-5.90); RED CELL DISTRIBUTION WIDTH 19.7 % (11.5-14.5); WHITE BLOOD COUNT 7.2 K/uL (4.8-10.8)
[2018-12-01 07:59] LABS: CALCIUM 8.1 mg/dl (8.6-10.4)
[2018-12-01] MEDS: Multivitamin Vitamin B Complex (Nephro-Vite) Tab PO SCH (08:09)
--- NOTE | 2018-12-01 09:13 | CP.PCM.PN ---
Subjective - Date & Time of Evaluation Date of Evaluation: 12/01/18 Time of Evaluation: 07:00 - Subjective Subjective: VASCULAR SURGERY PROGRESS NOTE FOR DR. BERGERON Patient seen and examined at bedside. Pt is doing well, voiding, only some minor pain in the left arm. Had some oozing overnight from Permacath site which was evaluated and found to have blood clot around the biopatch. Pressure dressing placed and bleeding stopped. Objective - Vital Signs/Intake and Output Vital Signs (last 24 hours): Temp Pulse Resp BP Pulse Ox 99.2 F 76 20 139/74 96 12/01/18 07:00 12/01/18 07:30 12/01/18 07:00 12/01/18 07:00 12/01/18 07:00 Intake and Output: 12/01/18 12/01/18 06:59 18:59 Intake Total 120 Output Total 450 Balance -330 - Medications Medications: Current Medications Allopurinol (Zyloprim) 100 mg PO DAILY [facility] Last Admin: 11/30/18 08:59 Dose: Not Given Amlodipine Besylate (Norvasc) 10 mg PO DAILY [facility] Last Admin: 11/30/18 13:36 Dose: 10 mg Calcium Acetate (Phoslo) 667 mg PO BIDCC [facility] Last Admin: 12/01/18 08:09 Dose: 667 mg Heparin Sodium (Porcine) (Heparin) 5,000 units SC Q12 [facility] Last Admin: 11/30/18 22:00 Dose: Not Given Dextrose/Sodium Chloride (Dextrose 5%/0.9% Ns 1000 Ml) 1,000 mls @ 50 mls/hr IV .Q20H [facility] Last Admin: 11/29/18 09:04 Dose: 50 mls/hr Ondansetron HCl (Zofran Inj) 4 mg IVP Q6 PRN PRN Reason: Nausea/Vomiting Last Admin: 11/28/18 19:26 Dose: 4 mg Oxycodone/Acetaminophen (Percocet 5/325 Mg Tab) 1 tab PO Q4H PRN PRN Reason: Pain, moderate (4-7) Stop: 12/03/18 17:21 Tamsulosin HCl (Flomax) 0.4 mg PO HS [facility] Last Admin: 12/01/18 00:02 Dose: 0.4 mg Vitamin B Complex/Vit C/Folic Acid (Nephro-Brandy) 1 tab PO 0800 [facility] Last Admin: 12/01/18 08:09 Dose: 1 tab - Labs Labs: 12/01/18 07:34 12/01/18 07:34 PT 11.0 SECONDS (9.7-12.2) 11/28/18 08:03 INR 1.0 11/28/18 08:03 APTT 33 SECONDS (21-34) 11/28/18 08:03 - Constitutional Appears: Well, Non-toxic, No Acute Distress - Head Exam Head Exam: ATRAUMATIC, NORMAL INSPECTION - ENT Exam Additional comments: Right IJ Permacath dressing clean/dry/intact - Respiratory Exam Respiratory Exam: NORMAL BREATHING PATTERN. absent: Respiratory Distress - Cardiovascular Exam Cardiovascular Exam: +S1, +S2 - Extremities Exam Additional comments: left arm dressing clean/dry/intact Palpable thrill and radial pulse - Neurological Exam Neurological Exam: Alert, Awake - Psychiatric Exam Psychiatric exam: Normal Affect, Normal Mood - Skin Skin Exam: Normal Color, Warm Assessment and Plan - Assessment and Plan (Free Text) Assessment: 73yo M with ESRD s/p Right IJ Permacath POD#3 and s/p Left arm Brachio-Basilic AVF POD#1 - Continue dialysis via Permacath until fistula matures - Dialysis MWF as per nephrology - Follow up with Dr. Bergeron as an outpatient for suture removal in 2 weeks - DVT PPx - Discussed plan with Dr. Rene Rothman PGY-4
--- NOTE | 2018-12-01 15:50 | CP.PCM.PN ---
Subjective - Date & Time of Evaluation Date of Evaluation: 12/01/18 Time of Evaluation: 15:49 - Subjective Subjective: pt is seen and examined, follow up renal consult is dictated#[id number] for hd today Objective - Vital Signs/Intake and Output Vital Signs (last 24 hours): Temp Pulse Resp BP Pulse Ox 99.2 F 97 H 20 139/74 96 12/01/18 07:00 12/01/18 14:02 12/01/18 07:00 12/01/18 07:00 12/01/18 07:00 Intake and Output: 12/01/18 12/01/18 06:59 18:59 Intake Total 520 Output Total 750 Balance -230 - Medications Medications: Current Medications Allopurinol (Zyloprim) 100 mg PO DAILY [facility] Last Admin: 12/01/18 09:15 Dose: 100 mg Amlodipine Besylate (Norvasc) 10 mg PO DAILY [facility] Last Admin: 12/01/18 09:15 Dose: 10 mg Calcium Acetate (Phoslo) 667 mg PO BIDCC [facility] Last Admin: 12/01/18 08:09 Dose: 667 mg Heparin Sodium (Porcine) (Heparin) 5,000 units SC Q12 [facility] Last Admin: 12/01/18 09:15 Dose: 5,000 units Ondansetron HCl (Zofran Inj) 4 mg IVP Q6 PRN PRN Reason: Nausea/Vomiting Last Admin: 11/28/18 19:26 Dose: 4 mg Oxycodone/Acetaminophen (Percocet 5/325 Mg Tab) 1 tab PO Q4H PRN PRN Reason: Pain, moderate (4-7) Stop: 12/03/18 17:21 Tamsulosin HCl (Flomax) 0.4 mg PO HS [facility] Last Admin: 12/01/18 00:02 Dose: 0.4 mg Vitamin B Complex/Vit C/Folic Acid (Nephro-Brnady) 1 tab PO 0800 [facility] Last Admin: 12/01/18 08:09 Dose: 1 tab - Labs Labs: 12/01/18 07:34 12/01/18 07:34 PT 11.0 SECONDS (9.7-12.2) 11/28/18 08:03 INR 1.0 11/28/18 08:03 APTT 33 SECONDS (21-34) 11/28/18 08:03
--- NOTE | 2018-12-02 00:20 | PN ---
DATE: 12/01/2018 FOLLOWUP RENAL CONSULTATION LOCATION: The patient is located room 568, bed B. REQUESTED BY: Kristi Hamilton MD REASON FOR FOLLOWUP: End-stage renal disease, continuation of the hemodialysis. SUBJECTIVE: Mr. Fallon is a 73-year-old very pleasant elderly [place]ese male with a past medical history significant for hypertension, gout, end-stage renal disease, anemia who was admitted with worsening renal function, requiring initiation of the renal replacement therapy, status post right intrajugular PermCath placement and also status post left elbow brachiobasilic AV fistula placement yesterday. The patient denies any headache or dizziness. Denies any chest pain or palpitation. Denies any fever or cough. Complains of lower abdominal discomfort and occasional dysuria. No nausea. No vomiting. PHYSICAL EXAMINATION: VITAL SIGNS: As follows: Blood pressure 124/81, pulse 95, respirations 16, temperature 98.8. Height 5 feet 5 inches. Weight is 85 pounds. GENERAL: Mr. Fallon is a 73-year-old elderly [place]ese male, moderately built, moderately nourished, not in acute distress. HEENT: Pupils are normal and reactive to light and accommodation. Conjunctivae pink. Sclerae anicteric. Tongue is moist. Trachea is midline. LUNGS: Symmetric on both sides. Bilateral breath sounds present. Clear to auscultation. CARDIOVASCULAR SYSTEM: Inglis at the fifth intercostal space, midclavicular line. S1 and S2 audible. No murmur or gallop. ABDOMEN: Normal in appearance. Soft, tympanitic. Mild suprapubic tenderness present. No guarding. No rigidity. CENTRAL NERVOUS SYSTEM: The patient is alert, awake, oriented x3. Nonfocal neuro examination. Cranial nerves II through XII grossly intact. Sensory and motor system is within normal limits. EXTREMITIES: No cyanosis, no clubbing, no edema. LABORATORY DATA: Include as follows as of 12/01/2018: WBC 7.2, hemoglobin 9.4, hematocrit is 30.8, MCV is 71.8, and platelets 139. Sodium 138, potassium 3.8, chloride 103, CO2 of 24, BUN 38, creatinine 3.8, glucose is 117, calcium 8.1, phosphorus is 4.1, and magnesium 1.2. ASSESSMENT: In summary, Mr. Fallon is a 73-year-old elderly [place]ese male with a history of longstanding hypertension, gout, anemia, end-stage renal disease who was admitted with worsening renal function and started on hemodialysis. 1. End-stage renal disease, most likely secondary to hypertension and bilateral cystic disease. 2. Anemia secondary to renal failure. 3. Anemia most likely secondary to iron-deficiency anemia. 4. Secondary hyperparathyroidism. PLAN: Continue his current medications of Flomax 0.4 mg p.o. at bedtime, subcu heparin 5000 units every 12 hours, Nephro-Brandy one tablet daily, amlodipine 10 mg daily, Percocet one tablet every 4 hours p.r.n., PhosLo 667 mg p.o. b.i.d., Zofran 4 mg IV every 6 hours, and allopurinol 100 mg p.o. daily. Continue Zemplar and Epogen during dialysis. We will follow with you. Thank you for allowing me to participate in your patient's care. Awaiting for the outpatient hemodialysis schedule. Simran Bacon MD
[2018-12-02] MEDS: Multivitamin Vitamin B Complex (Nephro-Vite) Tab PO SCH (09:07)
[2018-12-02 12:52] LABS: CALCIUM 8.6 mg/dl (8.6-10.4)
--- NOTE | 2018-12-02 19:58 | CP.PCM.PN ---
Subjective - Date & Time of Evaluation Date of Evaluation: 12/02/18 Time of Evaluation: 17:00 - Subjective Subjective: Providing nephrology coverage for Dr. Bacon: 73 yo M w/ pmh of gout, HTN, anemia, and advanced CKD, admitted for worsening renal failure, initiated on HD as ESRD; Patient spiked fever today; reporting gout affecting his knees b/l; no shortness of breath; Objective - Vital Signs/Intake and Output Vital Signs (last 24 hours): Temp Pulse Resp BP Pulse Ox 99.3 F 100 H 20 135/72 97 12/02/18 19:00 12/02/18 15:00 12/02/18 15:00 12/02/18 15:00 12/02/18 15:00 Intake and Output: 12/02/18 12/03/18 18:59 06:59 Intake Total 830 Output Total 350 Balance 480 - Medications Medications: Current Medications Acetaminophen (Tylenol 325mg Tab) 650 mg PO Q6 PRN PRN Reason: Fever >100.4 F Last Admin: 12/02/18 16:02 Dose: 650 mg Allopurinol (Zyloprim) 100 mg PO DAILY [facility] Last Admin: 12/02/18 09:33 Dose: 100 mg Amlodipine Besylate (Norvasc) 10 mg PO DAILY [facility] Last Admin: 12/02/18 09:33 Dose: 10 mg [facility] ([facility]) [facility] Last Admin: 12/02/18 17:01 Dose: 667 mg Colchicine (Colocrys) 0.6 mg PO BID [facility] Last Admin: 12/02/18 17:01 Dose: 0.6 mg Epoetin Gavin (Procrit) 10,000 unit IV [facility] Vancomycin HCl 1 gm/ Sodium (Chloride) 250 mls @ 166.7 mls/hr IVPB [facility]; Protocol Ondansetron HCl (Zofran Inj) 4 mg IVP Q6 PRN PRN Reason: Nausea/Vomiting Last Admin: 11/28/18 19:26 Dose: 4 mg Oxycodone/Acetaminophen (Percocet 5/325 Mg Tab) 1 tab PO Q4H PRN PRN Reason: Pain, moderate (4-7) Stop: 12/03/18 17:21 Last Admin: 12/01/18 20:46 Dose: 1 tab Paricalcitol (Zemplar) 2 mcg IV MWF [facility] Tamsulosin HCl (Flomax) 0.4 mg PO HS [facility] Last Admin: 12/01/18 21:51 Dose: 0.4 mg Vitamin B Complex/Vit C/Folic Acid (Nephro-Brandy) 1 tab PO 0800 [facility] Last Admin: 12/02/18 09:07 Dose: 1 tab - Labs Labs: 12/01/18 07:34 12/02/18 12:13 PT 11.0 SECONDS (9.7-12.2) 11/28/18 08:03 INR 1.0 11/28/18 08:03 APTT 33 SECONDS (21-34) 11/28/18 08:03 - Constitutional Appears: Non-toxic, No Acute Distress - Eye Exam Eye Exam: Normal appearance - Respiratory Exam Respiratory Exam: Clear to Ausculation Bilateral. absent: Respiratory Distress - Cardiovascular Exam Cardiovascular Exam: RRR, +S1, +S2 - GI/Abdominal Exam GI & Abdominal Exam: Soft. absent: Distended, Tenderness - Extremities Exam Additional comments: no leg edema; L arm AVF surgical site clean, not indurated; good bruit; - Neurological Exam Neurological Exam: Alert, Awake - Psychiatric Exam Psychiatric exam: Normal Mood. absent: Agitated - Skin Skin Exam: Warm. absent: Cyanosis Assessment and Plan (1) ESRD (end stage renal disease) Assessment & Plan: Stable volume and electrolyte status; next HD for Tuesday per routine; Status: Acute (2) Fever Assessment & Plan: Etiology unclear; cultures taken and started on empiric antibiotics, being dosed for HD; will f/u; Status: Acute (3) Hypertensive CKD, ESRD on dialysis Assessment & Plan: BP controlled, continue amlodipine; Status: Chronic (4) Anemia in CKD (chronic kidney disease) Assessment & Plan: Hgb stable, below goal (10-11g); continue EPO on HD; no need for IV iron; Status: Acute (5) Chronic kidney disease-mineral and bone disorder Assessment & Plan: Phos controlled, continue on phoslo 1 tab w/ meals; Status: Acute (6) Gout Assessment & Plan: Started on colchicine but need to be careful with renal failure; would recommend dosing no more than 0.6 mg every other day to prevent toxicity (not dialyzable); can use NSAIDS temporarily if needed, otherwise would consider prednisone course; Status: Acute
[2018-12-03] MEDS: Multivitamin Vitamin B Complex (Nephro-Vite) Tab PO SCH (08:59)
--- NOTE | 2018-12-03 10:29 | CP.PCM.PN ---
Subjective - Date & Time of Evaluation Date of Evaluation: 12/01/18 Time of Evaluation: 07:30 - Subjective Subjective: urinary retention tolerating dialysis Objective - Vital Signs/Intake and Output Vital Signs (last 24 hours): Temp Pulse Resp BP Pulse Ox 97.8 F 67 20 107/68 96 12/03/18 07:00 12/03/18 07:13 12/03/18 07:00 12/03/18 07:00 12/03/18 07:00 Intake and Output: 12/03/18 12/03/18 06:59 18:59 Intake Total 400 Output Total 300 Balance 100 - Medications Medications: Current Medications Acetaminophen (Tylenol 325mg Tab) 650 mg PO Q6 PRN PRN Reason: Fever >100.4 F Last Admin: 12/02/18 23:45 Dose: 650 mg Allopurinol (Zyloprim) 100 mg PO DAILY [facility] Last Admin: 12/03/18 09:02 Dose: 100 mg Amlodipine Besylate (Norvasc) 10 mg PO DAILY [facility] Last Admin: 12/03/18 09:01 Dose: 10 mg [facility]cium [facility]etate (Phoslo) [facility] Last Admin: 12/03/18 08:59 Dose: 667 mg Colchicine (Colocrys) 0.6 mg PO BID [facility] Last Admin: 12/02/18 17:01 Dose: 0.6 mg Epoetin Gvain (Procrit) 10,000 unit IV MWF [facility] Vancomycin HCl 1 gm/ Sodium (Chloride) 250 mls @ 166.7 mls/hr [facility]; Protocol Ondansetron HCl (Zofran Inj) 4 mg IVP Q6 PRN PRN Reason: Nausea/Vomiting Last Admin: 11/28/18 19:26 Dose: 4 mg Oxycodone/Acetaminophen (Percocet 5/325 Mg Tab) 1 tab PO Q4H PRN PRN Reason: Pain, moderate (4-7) Stop: 12/03/18 17:21 Last Admin: 12/01/18 20:46 Dose: 1 tab Paricalcitol (Zemplar) 2 mcg IV MWF [facility] Tamsulosin HCl (Flomax) 0.4 mg PO [facility] Last Admin: 12/02/18 21:33 Dose: 0.4 mg Vitamin B Complex/Vit C/Folic Acid (Nephro-Brandy) 1 tab PO 0800 [facility] Last Admin: 12/03/18 08:59 Dose: 1 tab - Labs Labs: 12/01/18 07:34 12/02/18 12:13 PT 11.0 SECONDS (9.7-12.2) 11/28/18 08:03 INR 1.0 11/28/18 08:03 APTT 33 SECONDS (21-34) 11/28/18 08:03 - Constitutional Appears: Non-toxic - Head Exam Head Exam: NORMAL INSPECTION - Eye Exam Eye Exam: absent: Scleral icterus - ENT Exam ENT Exam: Mucous Membranes Moist - Neck Exam Neck Exam: Full ROM - Respiratory Exam Respiratory Exam: NORMAL BREATHING PATTERN - Cardiovascular Exam Cardiovascular Exam: REGULAR RHYTHM - GI/Abdominal Exam GI & Abdominal Exam: Soft - Exam External exam: NORMAL EXTERNAL EXAM - Extremities Exam Extremities Exam: absent: Pedal Edema Assessment and Plan - Assessment and Plan (Free Text) Assessment: Urinary retention ESRD HTN GOUT Plan: Cont dialysis consult Cont meds
--- NOTE | 2018-12-03 11:21 | CP.PCM.PN ---
Subjective - Date & Time of Evaluation Date of Evaluation: 12/03/18 Time of Evaluation: 11:16 - Subjective Subjective: 73 year old male admitted with renal failure,staff unable to straight cath, pt noted to have large PVR on bladder scan. Folet cath placed suggest Leave garcia in place, refer for outpatient eval when pt can be cleared for cystoscopy. Bobo zuniga place pt on flomax and proscar to improve chances of voiding in outpatient voiding trial. [place] Objective - Vital Signs/Intake and Output Vital Signs (last 24 hours): Temp Pulse Resp BP Pulse Ox 97.8 F 67 20 107/68 96 12/03/18 07:00 12/03/18 07:13 12/03/18 07:00 12/03/18 07:00 12/03/18 07:00 Intake and Output: 12/03/18 12/03/18 06:59 18:59 Intake Total 400 Output Total 300 Balance 100 - Medications Medications: Current Medications Acetaminophen (Tylenol 325mg Tab) 650 mg PO Q6 PRN PRN Reason: Fever >100.4 F Last Admin: 12/02/18 23:45 Dose: 650 mg Allopurinol (Zyloprim) 100 mg PO DAILY [facility] Last Admin: 12/03/18 09:02 Dose: 100 mg Amlodipine Besylate (Norvasc) 10 mg PO DAILY [facility] Last Admin: 12/03/18 09:01 Dose: 10 mg [facility] Last Admin: 12/03/18 08:59 Dose: 667 mg Colchicine (Colocrys) 0.6 mg PO BID [facility] Last Admin: 12/02/18 17:01 Dose: 0.6 mg Epoetin Gavin (Procrit) 10,000 unit IV [facility] Vancomycin HCl 1 gm/ Sodium (Chloride) 250 mls @ 166.7 mls/hr IVPB [facility]; Protocol Ondansetron HCl (Zofran Inj) 4 mg IVP Q6 PRN PRN Reason: Nausea/Vomiting Last Admin: 11/28/18 19:26 Dose: 4 mg Oxycodone/Acetaminophen (Percocet 5/325 Mg Tab) 1 tab PO Q4H PRN PRN Reason: Pain, moderate (4-7) Stop: 12/03/18 17:21 Last Admin: 12/01/18 20:46 Dose: 1 tab Paricalcitol (Zemplar) 2 mcg IV MWF [facility] Prednisone (Prednisone Tab) 20 mg PO DAILY [facility] Tamsulosin HCl (Flomax) 0.4 mg PO HS [facility] Last Admin: 12/02/18 21:33 Dose: 0.4 mg Vitamin B Complex/Vit C/Folic Acid (Nephro-Brandy) 1 tab PO 0800 [facility] Last Admin: 12/03/18 08:59 Dose: 1 tab - Labs Labs: 12/01/18 07:34 12/02/18 12:13 PT 11.0 SECONDS (9.7-12.2) 11/28/18 08:03 INR 1.0 11/28/18 08:03 APTT 33 SECONDS (21-34) 11/28/18 08:03
[2018-12-03 12:46] LABS: URINE BACTERIA RARE (<OCC); URINE BILIRUBIN NEGATIVE (NEGATIVE); URINE BLOOD 2+ (NEGATIVE); URINE CLARITY Clear (Clear); URINE COLOR Yellow (YELLOW); URINE GLUCOSE (UA) NORMAL (Normal); URINE LEUKOCYTE ESTERASE NEG Leu/uL (Negative); URINE PROTEIN 2+ mg/dL (NEGATIVE); URINE UROBILINOGEN NORMAL mg/dL (0.2-1.0)
[2018-12-03] MEDS: Magnesium Hydroxide Susp 30 ml UD PO PRN ×2 (15:08→21:21)
--- NOTE | 2018-12-03 16:14 | CP.PCM.CON ---
History of Present Illness - History of Present Illness History of Present Illness: 73 y/o male with history of ESRD sent to ED , due to worsening kidney function. Patient required urgent dialysis - had permacath placed then AV fistula Recently started to spike fevers and was found to have large bladder residual Seen by ID consulted for antibiotic management PMHx: ESRD, gout, HTN, anemia PSHx: Denies Meds: Colchicine 500mcg PO BID, tamsulosin 0.4mg PO HS, amlodipine 10mg PO daily Allergy: NKDA Social: denies tobacco, alcohol, drugs Family hx: denies Review of Systems: -Gen: No fever, No chills, No headache, No lethargy, No weakness. -HEENT: No dizziness, No change in vision, No change in hearing, No sore throat, No dysphagia, No nasal congestion, No mucous. -Cardio: No chest pain, No palpitations, No lower extremity edema, No orthopnea. -Resp: No cough, No dyspnea, No hemoptysis, No wheezing, No pain on inspiration. -GI: No abdominal pain, No nausea/vomiting, No diarrhea/constipation, No hematochezia, No hematemesis. -: No dysuria, No urinary freq, No incontinence, No hematuria, No change in urinary stream. -MSK: No back pain, No muscle weakness, No radiating pain. -Skin: No itching, No rash, No lesions. -Neuro: No confusion, No numbness, No tingling, No focal weakness, No radicular pain, No syncope. -Psych: No anxiety, No depression, No H/I, No S/I, No hallucinations. Past Patient History - Past Medical History & Family History Past Medical History?: Yes - Past Social History Smoking Status: Never Smoked - CARDIAC Hx Hypertension: Yes - PULMONARY Hx Respiratory Disorders: No - NEUROLOGICAL Hx Neurological Disorder: No - HEENT Hx HEENT Problems: No - RENAL Hx Chronic Kidney Disease: Yes (stage 5) - ENDOCRINE/METABOLIC Hx Endocrine Disorders: No - HEMATOLOGICAL/ONCOLOGICAL Hx Blood Disorders: No - INTEGUMENTARY Hx Dermatological Problems: No - MUSCULOSKELETAL/RHEUMATOLOGICAL Hx Gout: Yes - GASTROINTESTINAL Hx Gastrointestinal Disorders: No - GENITOURINARY/GYNECOLOGICAL Hx Genitourinary Disorders: No - PSYCHIATRIC Hx Substance Use: No - SURGICAL HISTORY Hx Surgeries: No - ANESTHESIA Hx Anesthesia: No Hx Anesthesia Reactions: No Hx Malignant Hyperthermia: No Has any member of the family had a problem w/ anesthesia?: No Meds Allergies/Adverse Reactions: Allergies Allergy/AdvReac Type Severity Reaction Status Date / Time No Known Allergies Allergy Verified 11/28/18 07:38 - Medications Medications: Current Medications Acetaminophen (Tylenol 325mg Tab) 650 mg PO Q6 PRN PRN Reason: Fever >100.4 F Last Admin: 12/02/18 23:45 Dose: 650 mg Allopurinol (Zyloprim) 100 mg PO DAILY [facility] Last Admin: 12/03/18 09:02 Dose: 100 mg Amlodipine Besylate (Norvasc) 10 mg PO DAILY [facility] Last Admin: 12/03/18 09:01 Dose: 10 mg [facility] ([facility]lo) [facility] Last Admin: 12/03/18 08:59 Dose: 667 mg Colchicine (Colocrys) 0.6 mg PO BID [facility] Last Admin: 12/02/18 17:01 Dose: 0.6 mg Epoetin Gavin (Procrit) 10,000 unit IV MWF [facility] Vancomycin HCl 1 gm/ Sodium (Chloride) 250 mls @ 166.7 mls/hr [facility]; Protocol Magnesium Hydroxide (Milk Of Magnesia) 30 ml PO Q6 PRN PRN Reason: Constipation Last Admin: 12/03/18 15:08 Dose: 30 ml Ondansetron HCl (Zofran Inj) 4 mg IVP Q6 PRN PRN Reason: Nausea/Vomiting Last Admin: 11/28/18 19:26 Dose: 4 mg Oxycodone/Acetaminophen (Percocet 5/325 Mg Tab) 1 tab PO Q4H PRN PRN Reason: Pain, moderate (4-7) Stop: 12/03/18 17:21 Last Admin: 12/01/18 20:46 Dose: 1 tab Paricalcitol (Zemplar) 2 mcg IV MWF [facility] Prednisone (Prednisone Tab) 20 mg PO DAILY [facility] Tamsulosin HCl (Flomax) 0.4 mg PO HS [facility] Last Admin: 12/02/18 21:33 Dose: 0.4 mg Vitamin B Complex/Vit C/Folic Acid (Nephro-Brandy) 1 tab PO 0800 [facility] Last Admin: 12/03/18 08:59 Dose: 1 tab Physical Exam - Constitutional Appears: No Acute Distress, Cachectic, Chronically Ill - Head Exam Head Exam: ATRAUMATIC, NORMOCEPHALIC - Eye Exam Eye Exam: absent: Scleral icterus - ENT Exam ENT Exam: Mucous Membranes Dry - Neck Exam Neck exam: Negative for: Lymphadenopathy - Respiratory Exam Respiratory Exam: Decreased Breath Sounds, Clear to Auscultation Bilateral - Cardiovascular Exam Cardiovascular Exam: REGULAR RHYTHM, +S1, +S2 - GI/Abdominal Exam GI & Abdominal Exam: Diminished Bowel Sounds, Distended, Soft. absent: Guarding, Rebound, Rigid, Tenderness - Rectal Exam Rectal Exam: Deferred - Exam Exam: NORMAL INSPECTION - Extremities Exam Extremities exam: Positive for: pedal pulses present. Negative for: calf tenderness, pedal edema, tenderness - Back Exam Back exam: absent: CVA tenderness (L), CVA tenderness (R) - Neurological Exam Neurological exam: Alert, CN II-XII Intact, Oriented x3, Reflexes Normal - Psychiatric Exam Psychiatric exam: Normal Mood - Skin Skin Exam: Dry, Intact Results - Vital Signs Recent Vital Signs: Last Vital Signs Temp 99.3 F 12/03/18 15:00 Pulse 90 12/03/18 15:00 Resp 20 12/03/18 15:00 BP 103/67 12/03/18 15:00 Pulse Ox 96 12/03/18 15:00 - Labs Result Diagrams: 12/01/18 07:34 12/02/18 12:13 Labs: Laboratory Results - last 24 hr 12/02/18 12/03/18 16:32 12:00 Lactic Acid 1.9 Urine Color Yellow Urine Clarity Clear Urine pH 6.0 Ur Specific [place] 1.006 Urine Protein 2+ H Urine Glucose (UA) Normal Urine Ketones Negative Urine Blood 2+ H Urine Nitrate Negative Urine Bilirubin Negative Urine Urobilinogen Normal Ur Leukocyte Esterase Neg Urine WBC (Auto) 3 Urine RBC (Auto) 34 H Urine Bacteria Rare Assessment & Plan (1) Anemia in CKD (chronic kidney disease) Status: Acute (2) Chronic kidney disease-mineral and bone disorder Status: Acute (3) ESRD (end stage renal disease) Status: Acute (4) Fever Status: Acute (5) Gout Status: Acute (6) Hypertensive CKD, ESRD on dialysis Status: Chronic - Assessment and Plan (Free Text) Assessment: fever- etiology unclear r/o UTI as source await cultures cont IV antibiotics
[2018-12-04] MEDS: Magnesium Hydroxide Susp 30 ml UD PO PRN (05:50)
[2018-12-04] MEDS: Multivitamin Vitamin B Complex (Nephro-Vite) Tab PO SCH (08:05)
--- NOTE | 2018-12-04 13:36 | CP.PCM.PN ---
Subjective - Date & Time of Evaluation Date of Evaluation: 12/04/18 Time of Evaluation: 08:00 - Subjective Subjective: 73 y/o male with history of ESRD sent to ED , due to worsening kidney function. Patient required urgent dialysis - had permacath placed then AV fistula Recently started to spike fevers and was found to have large bladder residual Seen by ID consulted for antibiotic management low grade fever + garcia in place Objective - Vital Signs/Intake and Output Vital Signs (last 24 hours): Temp Pulse Resp BP Pulse Ox 99.2 F 79 20 112/68 94 L 12/04/18 07:25 12/04/18 07:25 12/04/18 07:25 12/04/18 07:25 12/04/18 07:25 Intake and Output: 12/04/18 12/04/18 06:59 18:59 Intake Total 580 Output Total 1050 Balance -470 - Medications Medications: Current Medications Acetaminophen (Tylenol 325mg Tab) 650 mg PO Q6 PRN PRN Reason: Fever >100.4 F Last Admin: 12/02/18 23:45 Dose: 650 mg Allopurinol (Zyloprim) 100 mg PO DAILY [facility] Last Admin: 12/04/18 10:07 Dose: 100 mg Amlodipine Besylate (Norvasc) 10 mg PO DAILY [facility] Last Admin: 12/04/18 10:06 Dose: 10 mg [facility] Last Admin: 12/04/18 08:05 Dose: 667 mg Colchicine (Colocrys) 0.6 mg PO BID [facility] Last Admin: 12/02/18 17:01 Dose: 0.6 mg Epoetin Gavin (Procrit) 10,000 unit IV MWF [facility] Vancomycin HCl 1 gm/ Sodium (Chloride) 250 mls @ 166.7 mls/hr IVPB MWF [facility]; Protocol Ceftriaxone Sodium 1 gm/ (Sodium Chloride) 100 mls @ 100 mls/hr IVPB DAILY [facility]; Protocol Last Admin: 12/04/18 10:04 Dose: 100 mls/hr Magnesium Hydroxide (Milk Of Magnesia) 30 ml PO Q6 PRN PRN Reason: Constipation Last Admin: 12/04/18 05:50 Dose: 30 ml Ondansetron HCl (Zofran Inj) 4 mg IVP Q6 PRN PRN Reason: Nausea/Vomiting Last Admin: 11/28/18 19:26 Dose: 4 mg Paricalcitol (Zemplar) 2 mcg IV MWF [facility] Prednisone (Prednisone Tab) 20 mg PO DAILY [facility] Last Admin: 12/04/18 10:07 Dose: 20 mg Tamsulosin HCl (Flomax) 0.4 mg PO HS [facility] Last Admin: 12/03/18 21:21 Dose: 0.4 mg Vitamin B Complex/Vit C/Folic Acid (Nephro-Brandy) 1 tab PO 0800 [facility] Last Admin: 12/04/18 08:05 Dose: 1 tab - Labs Labs: 12/01/18 07:34 12/02/18 12:13 PT 11.0 SECONDS (9.7-12.2) 11/28/18 08:03 INR 1.0 11/28/18 08:03 APTT 33 SECONDS (21-34) 11/28/18 08:03 - Constitutional Appears: Non-toxic, Cachectic, Chronically Ill - Head Exam Head Exam: NORMOCEPHALIC - Eye Exam Eye Exam: PERRL Pupil Exam: NORMAL ACCOMODATION - ENT Exam ENT Exam: Mucous Membranes Dry - Neck Exam Neck Exam: absent: Lymphadenopathy - Respiratory Exam Respiratory Exam: Decreased Breath Sounds - Cardiovascular Exam Cardiovascular Exam: REGULAR RHYTHM - GI/Abdominal Exam GI & Abdominal Exam: Distended, Soft. absent: Tenderness - Rectal Exam Rectal Exam: Deferred - Exam Exam: NORMAL INSPECTION - Extremities Exam Extremities Exam: absent: Calf Tenderness, Pedal Edema - Back Exam Back Exam: absent: CVA tenderness (L), CVA tenderness (R) - Neurological Exam Neurological Exam: Alert, Awake, CN II-XII Intact, Oriented x3 - Psychiatric Exam Psychiatric exam: Normal Mood - Skin Skin Exam: Dry, Intact Assessment and Plan (1) Anemia in CKD (chronic kidney disease) Status: Acute (2) Chronic kidney disease-mineral and bone disorder Status: Acute (3) ESRD (end stage renal disease) Status: Acute (4) Fever Status: Acute (5) Gout Status: Acute (6) Hypertensive CKD, ESRD on dialysis Status: Chronic - Assessment and Plan (Free Text) Assessment: iv rx in progress nad await cultures still with low grade fever
--- NOTE | 2018-12-04 13:59 | CP.PCM.PN ---
Subjective - Date & Time of Evaluation Date of Evaluation: 12/04/18 Time of Evaluation: 06:00 - Subjective Subjective: Patient seen and evaluated bedside. No acute issues overnight, Patient states he feels better and had normal bowel movement last night. States gout pain is improving. Objective - Vital Signs/Intake and Output Vital Signs (last 24 hours): Temp Pulse Resp BP Pulse Ox 99.2 F 79 20 112/68 94 L 12/04/18 07:25 12/04/18 07:25 12/04/18 07:25 12/04/18 07:25 12/04/18 07:25 Intake and Output: 12/04/18 12/04/18 06:59 18:59 Intake Total 580 Output Total 1050 Balance -470 - Medications Medications: Current Medications Acetaminophen (Tylenol 325mg Tab) 650 mg PO Q6 PRN PRN Reason: Fever >100.4 F Last Admin: 12/02/18 23:45 Dose: 650 mg Allopurinol (Zyloprim) 100 mg PO DAILY [facility] Last Admin: 12/04/18 10:07 Dose: 100 mg Amlodipine Besylate (Norvasc) 10 mg PO DAILY [facility] Last Admin: 12/04/18 10:06 Dose: 10 mg [facility]cium [facility] ([facility]lo) [facility] Last Admin: 12/04/18 08:05 Dose: 667 mg Colchicine (Colocrys) 0.6 mg PO BID [facility] Last Admin: 12/02/18 17:01 Dose: 0.6 mg Epoetin Gavin (Procrit) 10,000 unit IV F [facility] Vancomycin HCl 1 gm/ Sodium (Chloride) 250 mls @ 166.7 mls/hr IVPB [facility] [place]; Protocol Ceftriaxone Sodium 1 gm/ (Sodium Chloride) 100 mls @ 100 mls/hr IVPB DAILY [facility]; Protocol Last Admin: 12/04/18 10:04 Dose: 100 mls/hr Magnesium Hydroxide (Milk Of Magnesia) 30 ml PO Q6 PRN PRN Reason: Constipation Last Admin: 12/04/18 05:50 Dose: 30 ml Ondansetron HCl (Zofran Inj) 4 mg IVP Q6 PRN PRN Reason: Nausea/Vomiting Last Admin: 11/28/18 19:26 Dose: 4 mg Paricalcitol (Zemplar) 2 mcg IV F [facility] Prednisone (Prednisone Tab) 20 mg PO DAILY [facility] Last Admin: 12/04/18 10:07 Dose: 20 mg Tamsulosin HCl (Flomax) 0.4 mg PO HS [facility] Last Admin: 12/03/18 21:21 Dose: 0.4 mg Vitamin B Complex/Vit C/Folic Acid (Nephro-Brandy) 1 tab PO 0800 [facility] Last Admin: 12/04/18 08:05 Dose: 1 tab - Labs Labs: 12/01/18 07:34 12/02/18 12:13 PT 11.0 SECONDS (9.7-12.2) 11/28/18 08:03 INR 1.0 11/28/18 08:03 APTT 33 SECONDS (21-34) 11/28/18 08:03 - Constitutional Appears: Non-toxic, No Acute Distress - Eye Exam Eye Exam: Normal appearance - ENT Exam ENT Exam: Mucous Membranes Moist - Respiratory Exam Respiratory Exam: Clear to Ausculation Bilateral - Cardiovascular Exam Cardiovascular Exam: REGULAR RHYTHM - Extremities Exam Extremities Exam: absent: Pedal Edema Assessment and Plan - Assessment and Plan (Free Text) Plan: Assessment and Plan (1) ESRD (end stage renal disease) Assessment & Plan: dialysis today, continue MWF Status: Acute (2) Fever Assessment & Plan: Etiology unclear cultures negative temp 99.2 improving continue abx renally dosed Status: Acute (3) Hypertensive CKD, ESRD on dialysis Assessment & Plan: BP controlled, continue amlodipine Status: Chronic (4) Anemia in CKD (chronic kidney disease) Assessment & Plan: Hgb stable, below goal (10-11g); continue EPO on HD Status: Acute (5) Chronic kidney disease-mineral and bone disorder Assessment & Plan: Phos controlled, continue on phoslo 1 tab w/ meals; Status: Acute (6) Gout Assessment & Plan: -colchicine every other day if needed -prednisone Status: Acute
--- NOTE | 2018-12-04 17:07 | CP.PCM.PN ---
Subjective - Date & Time of Evaluation Date of Evaluation: 12/04/18 Time of Evaluation: 11:00 - Subjective Subjective: less knee pain seen by MIN[facility] wallerey in place +fever Objective - Vital Signs/Intake and Output Vital Signs (last 24 hours): Temp Pulse Resp BP Pulse Ox 98.7 F 82 20 99/63 L 96 12/04/18 16:57 12/04/18 16:57 12/04/18 16:57 12/04/18 16:57 12/04/18 16:57 Intake and Output: 12/04/18 12/04/18 06:59 18:59 Intake Total 580 Output Total 1050 Balance -470 - Medications Medications: Current Medications Acetaminophen (Tylenol 325mg Tab) 650 mg PO Q6 PRN PRN Reason: Fever >100.4 F Last Admin: 12/02/18 23:45 Dose: 650 mg Allopurinol (Zyloprim) 100 mg PO DAILY [facility] Last Admin: 12/04/18 10:07 Dose: 100 mg Amlodipine Besylate (Norvasc) 10 mg PO DAILY [facility] Last Admin: 12/04/18 10:06 Dose: 10 mg [facility]cium [facility] (Phoslo) [facility] Last Admin: 12/04/18 08:05 Dose: 667 mg Colchicine (Colocrys) 0.6 mg PO BID [facility] Last Admin: 12/02/18 17:01 Dose: 0.6 mg Epoetin Gavin (Procrit) 10,000 unit IV [facility] [place] Vancomycin HCl 1 gm/ Sodium (Chloride) 250 mls @ 166.7 mls/hr IVPB [facility] [place]; Protocol Ceftriaxone Sodium 1 gm/ (Sodium Chloride) 100 mls @ 100 mls/hr IVPB DAILY [facility]; Protocol Last Admin: 12/04/18 10:04 Dose: 100 mls/hr Magnesium Hydroxide (Milk Of Magnesia) 30 ml PO Q6 PRN PRN Reason: Constipation Last Admin: 12/04/18 05:50 Dose: 30 ml Ondansetron HCl (Zofran Inj) 4 mg IVP Q6 PRN PRN Reason: Nausea/Vomiting Last Admin: 11/28/18 19:26 Dose: 4 mg Paricalcitol (Zemplar) 2 mcg IV [facility] [place] Prednisone (Prednisone Tab) 20 mg PO DAILY [facility] Last Admin: 12/04/18 10:07 Dose: 20 mg Tamsulosin HCl (Flomax) 0.4 mg PO HS [facility] Last Admin: 12/03/18 21:21 Dose: 0.4 mg Vitamin B Complex/Vit C/Folic Acid (Nephro-Brandy) 1 tab PO 0800 [facility] Last Admin: 12/04/18 08:05 Dose: 1 tab - Labs Labs: 12/01/18 07:34 12/02/18 12:13 PT 11.0 SECONDS (9.7-12.2) 11/28/18 08:03 INR 1.0 11/28/18 08:03 APTT 33 SECONDS (21-34) 11/28/18 08:03 - Constitutional Appears: Chronically Ill - Head Exam Head Exam: NORMAL INSPECTION - Eye Exam Eye Exam: absent: Scleral icterus - Neck Exam Neck Exam: Full ROM - Respiratory Exam Respiratory Exam: Decreased Breath Sounds - Cardiovascular Exam Cardiovascular Exam: REGULAR RHYTHM - GI/Abdominal Exam GI & Abdominal Exam: Soft - Extremities Exam Extremities Exam: absent: Pedal Edema Additional comments: bilateral knee pain, but less Assessment and Plan - Assessment and Plan (Free Text) Assessment: ESRD Gout Anemia Urinary retention Recent fever HTN Plan: ID on board Dialysis On Steroids for Gout Cont epogen
--- NOTE | 2018-12-04 17:17 | CP.PCM.PN ---
Subjective - Date & Time of Evaluation Date of Evaluation: 12/02/18 Time of Evaluation: 12:00 - Subjective Subjective: +bilateral knee pain NAD +urinary retention Objective - Vital Signs/Intake and Output Vital Signs (last 24 hours): Temp Pulse Resp BP Pulse Ox 98.7 F 82 20 99/63 L 96 12/04/18 16:57 12/04/18 16:57 12/04/18 16:57 12/04/18 16:57 12/04/18 16:57 Intake and Output: 12/04/18 12/04/18 06:59 18:59 Intake Total 580 Output Total 1050 Balance -470 - Medications Medications: Current Medications Acetaminophen (Tylenol 325mg Tab) 650 mg PO Q6 PRN PRN Reason: Fever >100.4 F Last Admin: 12/02/18 23:45 Dose: 650 mg Allopurinol (Zyloprim) 100 mg PO DAILY [facility] Last Admin: 12/04/18 10:07 Dose: 100 mg Amlodipine Besylate (Norvasc) 10 mg PO DAILY [facility] Last Admin: 12/04/18 10:06 Dose: 10 mg Calcium Acetate (Phoslo) [facility] Last Admin: 12/04/18 08:05 Dose: 667 mg Colchicine (Colocrys) 0.6 mg PO BID [facility] Last Admin: 12/02/18 17:01 Dose: 0.6 mg Epoetin Gavin (Procrit) 10,000 unit IV MWF [facility] Vancomycin HCl 1 gm/ Sodium (Chloride) 250 mls @ 166.7 mls/hr [place] [facility] [place] Protocol Ceftriaxone Sodium 1 gm/ (Sodium Chloride) 100 mls @ 100 mls/hr IVPB DAILY [facility]; Protocol Last Admin: 12/04/18 10:04 Dose: 100 mls/hr Magnesium Hydroxide (Milk Of Magnesia) 30 ml PO Q6 PRN PRN Reason: Constipation Last Admin: 12/04/18 05:50 Dose: 30 ml Magnesium Oxide (Mag-Ox) 400 mg PO DAILY [facility] Ondansetron HCl (Zofran Inj) 4 mg IVP Q6 PRN PRN Reason: Nausea/Vomiting Last Admin: 11/28/18 19:26 Dose: 4 mg Paricalcitol (Zemplar) 2 mcg IV MWF [facility] Prednisone (Prednisone Tab) 20 mg PO DAILY [facility] Last Admin: 12/04/18 10:07 Dose: 20 mg Tamsulosin HCl (Flomax) 0.4 mg PO HS [facility] Last Admin: 12/03/18 21:21 Dose: 0.4 mg Vitamin B Complex/Vit C/Folic Acid (Nephro-Brandy) 1 tab PO 0800 [facility] Last Admin: 12/04/18 08:05 Dose: 1 tab - Labs Labs: 12/01/18 07:34 12/02/18 12:13 PT 11.0 SECONDS (9.7-12.2) 11/28/18 08:03 INR 1.0 11/28/18 08:03 APTT 33 SECONDS (21-34) 11/28/18 08:03 - Constitutional Appears: Chronically Ill - Head Exam Head Exam: NORMAL INSPECTION - Eye Exam Eye Exam: absent: Scleral icterus - Neck Exam Neck Exam: Full ROM - Respiratory Exam Respiratory Exam: Decreased Breath Sounds - Cardiovascular Exam Cardiovascular Exam: REGULAR RHYTHM - GI/Abdominal Exam GI & Abdominal Exam: Soft - Extremities Exam Extremities Exam: Full ROM - Neurological Exam Neurological Exam: Altered Assessment and Plan - Assessment and Plan (Free Text) Assessment: Anemia ESRD Urinary retention Gout Plan: Cont dialysis Cont epogen ID on board
--- NOTE | 2018-12-04 17:44 | CP.PCM.PN ---
Subjective - Date & Time of Evaluation Date of Evaluation: 12/03/18 Time of Evaluation: 09:40 - Subjective Subjective: +urinary retention bilateral knee pain on dialysis Objective - Vital Signs/Intake and Output Vital Signs (last 24 hours): Temp Pulse Resp BP Pulse Ox 98.7 F 82 20 99/63 L 96 12/04/18 16:57 12/04/18 16:57 12/04/18 16:57 12/04/18 16:57 12/04/18 16:57 Intake and Output: 12/04/18 12/04/18 06:59 18:59 Intake Total 580 Output Total 1050 Balance -470 - Medications Medications: Current Medications Acetaminophen (Tylenol 325mg Tab) 650 mg PO Q6 PRN PRN Reason: Fever >100.4 F Last Admin: 12/02/18 23:45 Dose: 650 mg Allopurinol (Zyloprim) 100 mg PO DAILY [facility] Last Admin: 12/04/18 10:07 Dose: 100 mg Amlodipine Besylate (Norvasc) 10 mg PO DAILY [facility] Last Admin: 12/04/18 10:06 Dose: 10 mg [facility] ([facility]lo) [facility] Last Admin: 12/04/18 08:05 Dose: 667 mg Colchicine (Colocrys) 0.6 mg PO BID [facility] Last Admin: 12/02/18 17:01 Dose: 0.6 mg Epoetin Gavin (Procrit) 10,000 unit IV MWF [facility] Finasteride (Proscar) 5 mg PO DAILY [facility] Vancomycin HCl 1 gm/ Sodium (Chloride) 250 mls @ [facility]7 [facility]ls[facility]; Protocol Ceftriaxone Sodium 1 gm/ (Sodium Chloride) 100 mls @ 100 mls/hr IVPB DAILY [facility]; Protocol Last Admin: 12/04/18 10:04 Dose: 100 mls/hr Magnesium Hydroxide (Milk Of Magnesia) 30 ml PO Q6 PRN PRN Reason: Constipation Last Admin: 12/04/18 05:50 Dose: 30 ml Magnesium Oxide (Mag-Ox) 400 mg PO DAILY [facility] Ondansetron HCl (Zofran Inj) 4 mg IVP Q6 PRN PRN Reason: Nausea/Vomiting Last Admin: 11/28/18 19:26 Dose: 4 mg Paricalcitol (Zemplar) 2 mcg IV MWF [facility] Prednisone (Prednisone Tab) 20 mg PO DAILY [facility] Last Admin: 12/04/18 10:07 Dose: 20 mg Tamsulosin HCl (Flomax) 0.4 mg PO HS [facility] Last Admin: 12/03/18 21:21 Dose: 0.4 mg Vitamin B Complex/Vit C/Folic Acid (Nephro-Brandy) 1 tab PO 0800 [facility] Last Admin: 12/04/18 08:05 Dose: 1 tab - Labs Labs: 12/01/18 07:34 12/02/18 12:13 PT 11.0 SECONDS (9.7-12.2) 11/28/18 08:03 INR 1.0 11/28/18 08:03 APTT 33 SECONDS (21-34) 11/28/18 08:03 - Constitutional Appears: Non-toxic - Head Exam Head Exam: NORMAL INSPECTION - Eye Exam Eye Exam: absent: Scleral icterus - Neck Exam Neck Exam: Full ROM - Respiratory Exam Respiratory Exam: Decreased Breath Sounds - GI/Abdominal Exam GI & Abdominal Exam: Soft - Extremities Exam Extremities Exam: absent: Pedal Edema - Neurological Exam Neurological Exam: Alert, Oriented x3 Assessment and Plan - Assessment and Plan (Free Text) Assessment: Fever- abtx as per ID Urinary retention-on garcia ESRD-dialysis Anemia- on epogen BPH - on Tamsulozine and Proscar Gout-on Colchicine and Prednisone Plan: Cont dialysis Garcia cath ID/ on board Abtx as ID
--- NOTE | 2018-12-04 17:57 | CP.PCM.DIS ---
Provider - Provider Date of Admission: 11/28/18 07:56 Attending physician: Skye Harp MD Primary care physician: Skye Harp MD Consults: 11/28/18 07:57 Nephrology Consult Stat Comment: Consulting Provider: Simran Bacon Consulting Physician: Simran Bacon Reason for Consult: esrd now requiring hd 11/28/18 10:05 Vascular Surgery Routine Comment: Consulting Provider: Jack López Jr. Physician Instructions: Reason For Exam: Dialysis access 12/02/18 06:22 Urology Consult Routine Comment: Consulting Provider: Ellis Kincaid Jr. Consulting Physician: Ellis Kincaid Jr. Reason for Consult: urinary retention 12/02/18 15:53 Infectious Disease Consult Routine Comment: Consulting Provider: Reid Mello Consulting Physician: Reid Mello Reason for Consult: FEVER Time Spent in preparation of Discharge (in minutes): 35 Diagnosis - Discharge Diagnosis (1) BPH (benign prostatic hyperplasia) Status: Chronic (2) Enlarged prostate with urinary retention Status: Acute (3) ESRD (end stage renal disease) Status: Acute Hospital Course - Lab Results Lab Results: Micro Results 12/02/18 16:30 Blood-Venous Blood Culture - Preliminary NO GROWTH AFTER 48 HOURS 12/02/18 17:42 Urine,Clean Catch Urine Culture - Final No Growth (<1,000 CFU/ML) 12/02/18 15:52 Blood-Venous Blood Culture - Preliminary NO GROWTH AFTER 24 HOURS Most Recent Lab Values WBC 7.2 K/uL (4.8-10.8) 12/01/18 07:34 RBC 4.29 Mil/uL (4.40-5.90) L 12/01/18 07:34 Hgb 9.2 g/dL (12.0-18.0) L 12/01/18 07:34 Hct 30.8 % (35.0-51.0) L 12/01/18 07:34 MCV 71.8 fL (80.0-94.0) L 12/01/18 07:34 MCH 21.4 pg (27.0-31.0) L 12/01/18 07:34 MCHC 29.8 g/dL (33.0-37.0) L 12/01/18 07:34 RDW 19.7 % (11.5-14.5) H 12/01/18 07:34 Plt Count 139 K/uL (130-400) 12/01/18 07:34 MPV 8.6 fL (7.2-11.7) 12/01/18 07:34 Neut % (Auto) 79.1 % (50.0-75.0) H 11/29/18 07:12 Lymph % (Auto) 13.1 % (20.0-40.0) L 11/29/18 07:12 [place] % (Auto) 6.3 % (0.0-10.0) 11/29/18 07:12 Eos % (Auto) 0.6 % (0.0-4.0) 11/29/18 07:12 Baso % (Auto) 0.9 % (0.0-2.0) 11/29/18 07:12 Neut # (Auto) 3.9 K/uL (1.8-7.0) 11/29/18 07:12 Lymph # (Auto) 0.6 K/uL (1.0-4.3) L 11/29/18 07:12 [place] # (Auto) 0.3 K/uL (0.0-0.8) 11/29/18 07:12 Eos # (Auto) 0.0 K/uL (0.0-0.7) 11/29/18 07:12 Baso # (Auto) 0.0 K/uL (0.0-0.2) 11/29/18 07:12 Differential Comment 11/28/18 08:03 PT 11.0 SECONDS (9.7-12.2) 11/28/18 08:03 INR 1.0 11/28/18 08:03 APTT 33 SECONDS (21-34) 11/28/18 08:03 Sodium 133 mmol/L (132-148) 12/02/18 12:13 Potassium 4.2 mmol/L (3.6-5.2) 12/02/18 12:13 Chloride 94 mmol/L (98-107) L 12/02/18 12:13 Carbon Dioxide 30 mmol/L (22-30) 12/02/18 12:13 Anion Gap 13 (10-20) 12/02/18 12:13 BUN 38 mg/dL (9-20) H 12/02/18 12:13 Creatinine 3.6 mg/dL (0.8-1.5) H 12/02/18 12:13 Est GFR ( Amer) 20 12/02/18 12:13 Est GFR (Non-Af Amer) 17 12/02/18 12:13 Random Glucose 139 mg/dL (75-110) H 12/02/18 12:13 Lactic Acid 1.9 mmol/L (0.7-2.1) 12/02/18 16:32 Calcium 8.6 mg/dl (8.6-10.4) 12/02/18 12:13 Phosphorus 4.1 mg/dL (2.5-4.5) 12/01/18 07:34 Magnesium 1.5 mg/dL (1.6-2.3) L 12/02/18 12:13 Iron 99 ug/dL (49-181) 11/28/18 11:09 TIBC 276 ug/dL (250-450) 11/28/18 11:09 % Saturation 36 (20-55) 11/28/18 11:09 Ferritin 288.0 ng/mL 11/28/18 11:09 Total Bilirubin 0.3 mg/dL (0.2-1.3) 11/29/18 07:12 AST 24 U/L (17-59) 11/29/18 07:12 ALT 28 U/L (21-72) 11/29/18 07:12 Alkaline Phosphatase 66 U/L (38-126) 11/29/18 07:12 Total Protein 6.9 g/dL (6.3-8.3) 11/29/18 07:12 Albumin 3.8 g/dL (3.5-5.0) 11/29/18 07:12 Globulin 3.1 gm/dL (2.2-3.9) 11/29/18 07:12 Albumin/Globulin Ratio 1.2 (1.0-2.1) 11/29/18 07:12 PTH Intact Whole Molec 350 pg/mL (14-64) H 11/28/18 11:09 Urine Color Yellow (YELLOW) 12/03/18 12:00 Urine Clarity Clear (Clear) 12/03/18 12:00 Urine pH 6.0 (5.0-8.0) 12/03/18 12:00 Ur Specific Leon 1.006 (1.003-1.030) 12/03/18 12:00 Urine Protein 2+ mg/dL (NEGATIVE) H 12/03/18 12:00 Urine Glucose (UA) Normal mg/dL (Normal) 12/03/18 12:00 Urine Ketones Negative mg/dL (NEGATIVE) 12/03/18 12:00 Urine Blood 2+ (NEGATIVE) H 12/03/18 12:00 Urine Nitrate Negative (NEGATIVE) 12/03/18 12:00 Urine Bilirubin Negative (NEGATIVE) 12/03/18 12:00 Urine Urobilinogen Normal mg/dL (0.2-1.0) 12/03/18 12:00 Ur Leukocyte Esterase Neg Viola/uL (Negative) 12/03/18 12:00 Urine WBC (Auto) 3 /hpf (0-5) 12/03/18 12:00 Urine RBC (Auto) 34 /hpf (0-3) H 12/03/18 12:00 Urine Bacteria Rare (<OCC) 12/03/18 12:00 Hepatitis A IgM Ab Negative (NEGATIVE) 11/28/18 11:09 Hep Bs Antigen Negative (NEGATIVE) 11/28/18 11:09 Hep Bs Antibody Negative (NEGATIVE) 11/28/18 11:09 Hep B Core IgM Ab Negative (NEGATIVE) 11/28/18 11:09 Hepatitis C Antibody Negative (NEGATIVE) 11/28/18 11:09 Blood Type O POSITIVE 11/30/18 07:48 Antibody Screen Negative 11/30/18 07:48 - Hospital Course Hospital Course: Pt admitted for severe anemia with Stage 5 CKD. Pt had permacath inserted and AV Fistula implanted. Pt developed bilateral knee pain and was treated with Allopurinol, Colchicine and steroids. Pt had urinary retention and a garcia cath was inserted and started on tamsulozin and proscar. Dr Kincaid() was consulted. Pt also developed fever. ID was called for abtx management after septic work-up was performed.. Discharge Exam - Head Exam Head Exam: NORMAL INSPECTION - Eye Exam Eye Exam: absent: Scleral icterus - Neck Exam Neck exam: Full Rom - Respiratory Exam Respiratory Exam: Decreased Breath Sounds - Cardiovascular Exam Cardiovascular Exam: REGULAR RHYTHM - GI/Abdominal Exam GI & Abdominal Exam: Soft. absent: Tenderness - Exam Additional comments: garcia cath in place - Extremities Exam Extremities exam: pedal edema - Neurological Exam Neurological exam: Alert, Oriented x3 Discharge Plan - Follow Up Plan Condition: FAIR Disposition: HOME/ ROUTINE Instructions: End Stage Kidney Disease (DC), Dialysis and Diet, Renal Failure Diet (DC) Referrals: Skey Harp MD [Staff Provider] - Simran Bacon MD [Staff Provider] - Jack López Jr., MD [Staff Provider] - Ellis Kincaid Jr., MD [Staff Provider] -
[2018-12-04 18:24] LABS: HEMOGLOBIN 8.2 g/dL (12.0-18.0); MEAN CELL VOLUME 69.9 fL (80.0-94.0); MEAN CORPUSCULAR HEMOGLOBIN 21.4 pg (27.0-31.0); MEAN CORPUSCULAR HGB CONC 30.6 g/dL (33.0-37.0); MEAN PLATELET VOLUME 8.6 fL (7.2-11.7); RBC 3.82 Mil/uL (4.40-5.90); RED CELL DISTRIBUTION WIDTH 19.9 % (11.5-14.5); WHITE BLOOD COUNT 6.7 K/uL (4.8-10.8)
[2018-12-04 18:43] LABS: ALBUMIN 3.3 g/dL (3.5-5.0)
[2018-12-04] MEDS: Epoetin Alfa 10,000 unit/ml Dialysis IV SCH (20:06)
--- NOTE | 2018-12-05 07:20 | CON ---
DATE: 12/03/2018 CHIEF COMPLAINT: Urinary retention. HISTORY OF PRESENT ILLNESS: The patient was admitted with new onset of renal failure and was found to have urinary retention with bladder scan. The staff has been straight cathing the patient, but now is unable to pass the catheter. Consultation was then called to manage the patient's urinary retention and inability to pass Young catheter. The patient is presently receiving dialysis. The patient gives a history of having some difficulty prior to admission with urination, getting up at night several times and having daytime frequency. He was on no medications and has had no evaluation. REVIEW OF SYSTEMS: RESPIRATORY: The patient has no respiratory complaints. GASTROINTESTINAL: The patient has no GI complaints. NEUROLOGICAL: The patient has no neurological complaints. INTEGUMENT: The patient has no complaints of rash or itching. VASCULAR: The patient has no history of vascular complaints. PSYCHIATRIC HISTORY: The patient has no history of psychiatric illness. SOCIAL AND FAMILY HISTORY: The patient lives with his here in [place]. PHYSICAL EXAMINATION: VITAL SIGNS: Within normal limits. HEAD, EARS, EYES, NOSE AND THROAT: Within normal limits. NECK: Supple. There are no bruits, no evidence of masses. CHEST: Clear bilaterally. There are no rales or rhonchi. HEART: Normal sinus rhythm. ABDOMEN: Bladder is palpably distended and approximately 4 fingers above the pubic bone. It is nontender. EXTREMITIES: Normal. RECTAL: Shows a 3+ nonnodular prostate without induration. IMPRESSION: Acute urinary retention. SUGGESTION: I have made the decision to pass the Young catheter. A #18 Young catheter was passed with some difficulty and placed in the bladder. It resulted in drainage of approximately 500 mL of clear urine. Suggest that the patient be referred for outpatient urological evaluation once fully stabilized and can be medically cleared. Further evaluation of this admission is not necessary. Ellis Kincaid MD
[2018-12-05 08:24] LABS: HEMOGLOBIN 8.5 g/dL (12.0-18.0); MEAN CORPUSCULAR HEMOGLOBIN 21.7 pg (27.0-31.0); MEAN CORPUSCULAR HGB CONC 30.6 g/dL (33.0-37.0); MEAN PLATELET VOLUME 8.8 fL (7.2-11.7); RBC 3.89 Mil/uL (4.40-5.90); WHITE BLOOD COUNT 8.4 K/uL (4.8-10.8)
[2018-12-05 08:35] LABS: ALBUMIN 3.1 g/dL (3.5-5.0); CALCIUM 8.4 mg/dl (8.6-10.4)
[2018-12-05] MEDS: Magnesium Oxide 400 mg Tab UD PO SCH (09:48)
[2018-12-05] MEDS: Multivitamin Vitamin B Complex (Nephro-Vite) Tab PO SCH (09:48)
--- NOTE | 2018-12-05 12:16 | CP.PCM.PN ---
Subjective - Date & Time of Evaluation Date of Evaluation: 12/05/18 Time of Evaluation: 07:00 - Subjective Subjective: afeb cultures neg thus far on board Objective - Vital Signs/Intake and Output Vital Signs (last 24 hours): Temp Pulse Resp BP Pulse Ox 97.8 F 75 20 100/56 L 94 L 12/05/18 07:13 12/05/18 10:00 12/05/18 07:13 12/05/18 07:13 12/05/18 07:13 Intake and Output: 12/05/18 12/05/18 06:59 18:59 Output Total 1000 Balance -1000 - Medications Medications: Current Medications Acetaminophen (Tylenol 325mg Tab) 650 mg PO Q6 PRN PRN Reason: Fever >100.4 F Last Admin: 12/02/18 23:45 Dose: 650 mg Allopurinol (Zyloprim) 100 mg PO DAILY [facility] Last Admin: 12/05/18 09:49 Dose: 100 mg Amlodipine Besylate (Norvasc) 10 mg PO DAILY [facility] Last Admin: 12/05/18 09:48 Dose: 10 mg Calcium Ac[facility]ate (Phoslo) [facility] Last Admin: 12/05/18 09:48 Dose: 667 mg Colchicine (Colocrys) 0.6 mg PO BID [facility] Last Admin: 12/02/18 17:01 Dose: 0.6 mg Epoetin Gavin ([facility]) [facility] Last Admin: 12/04/18 20:06 Dose: 10,000 unit Finasteride (Proscar) 5 mg PO DAILY [facility] Last Admin: 12/05/18 09:48 Dose: 5 mg Vancomycin HCl 1 gm/ Sodium (Chloride) 250 mls @ 166.7 mls/hr IVPB MWF [facility]; Protocol Last Admin: 12/04/18 21:59 Dose: 166.7 mls/hr Ceftriaxone Sodium 1 gm/ (Sodium Chloride) 100 mls @ 100 mls/hr IVPB DAILY [facility]; Protocol Last Admin: 12/05/18 09:48 Dose: 100 mls/hr Magnesium Hydroxide (Milk Of Magnesia) 30 ml PO Q6 PRN PRN Reason: Constipation Last Admin: 12/04/18 05:50 Dose: 30 ml Magnesium Oxide (Mag-Ox) 400 mg PO DAILY [facility] Last Admin: 12/05/18 09:48 Dose: 400 mg Ondansetron HCl (Zofran Inj) 4 mg IVP Q6 PRN PRN Reason: Nausea/Vomiting Last Admin: 11/28/18 19:26 Dose: 4 mg Paricalcitol (Zemplar) 2 mcg IV MWF [facility] Prednisone (Prednisone Tab) 20 mg PO DAILY [facility] Last Admin: 12/05/18 09:48 Dose: 20 mg Tamsulosin HCl (Flomax) 0.4 mg PO HS [facility] Last Admin: 12/04/18 22:02 Dose: 0.4 mg Vitamin B Complex/Vit C/Folic Acid (Nephro-Brandy) 1 tab PO 0800 [facility] Last Admin: 12/05/18 09:48 Dose: 1 tab - Labs Labs: 12/05/18 07:44 12/05/18 07:44 PT 11.0 SECONDS (9.7-12.2) 11/28/18 08:03 INR 1.0 11/28/18 08:03 APTT 33 SECONDS (21-34) 11/28/18 08:03 - Constitutional Appears: Non-toxic, Chronically Ill - Head Exam Head Exam: NORMOCEPHALIC - Eye Exam Eye Exam: absent: Scleral icterus - ENT Exam ENT Exam: Mucous Membranes Dry - Neck Exam Neck Exam: absent: Lymphadenopathy - Respiratory Exam Respiratory Exam: Decreased Breath Sounds - Cardiovascular Exam Cardiovascular Exam: REGULAR RHYTHM - GI/Abdominal Exam GI & Abdominal Exam: Distended, Soft - Rectal Exam Rectal Exam: Deferred - Exam Exam: NORMAL INSPECTION Assessment and Plan (1) Anemia in CKD (chronic kidney disease) Status: Acute (2) Chronic kidney disease-mineral and bone disorder Status: Acute (3) ESRD (end stage renal disease) Status: Acute (4) Fever Status: Acute (5) Gout Status: Acute (6) Hypertensive CKD, ESRD on dialysis Status: Chronic
--- NOTE | 2018-12-05 13:29 | CP.PCM.PN ---
<MarisolTino - Last Filed: 12/05/18 18:01> Subjective - Date & Time of Evaluation Date of Evaluation: 12/05/18 Time of Evaluation: 13:25 - Subjective Subjective: Patient seen & examined at bedside. No overnight events. At this time patient complains of some worsening bilateral knee pain that he feels resembles his gou ty arthritis. Denies any fevers, chills, or dysuria. Objective - Vital Signs/Intake and Output Vital Signs (last 24 hours): Temp Pulse Resp BP Pulse Ox 97.8 F 75 20 100/56 L 94 L 12/05/18 07:13 12/05/18 10:00 12/05/18 07:13 12/05/18 07:13 12/05/18 07:13 Intake and Output: 12/05/18 12/05/18 06:59 18:59 Output Total 1000 Balance -1000 - Medications Medications: Current Medications Acetaminophen (Tylenol 325mg Tab) 650 mg PO Q6 PRN PRN Reason: Fever >100.4 F Last Admin: 12/02/18 23:45 Dose: 650 mg Allopurinol (Zyloprim) 100 mg PO DAILY [facility] Last Admin: 12/05/18 09:49 Dose: 100 mg Amlodipine Besylate (Norvasc) 5 mg PO DAILY [facility] Last Admin: 12/05/18 09:48 Dose: 667 mg Epoetin Gavin (Procrit) 10,000 unit IV MWF [facility] Last Admin: 12/04/18 20:06 Dose: 10,000 unit Finasteride (Proscar) 5 mg PO DAILY [facility] Last Admin: 12/05/18 09:48 Dose: 5 mg Vancomycin HCl 1 gm/ Sodium (Chloride) 250 mls @ 166.7 mls/hr IVPB MWF [facility]; Protocol Last Admin: 12/04/18 21:59 Dose: 166.7 mls/hr Ceftriaxone Sodium 1 gm/ (Sodium Chloride) 100 mls @ 100 mls/hr IVPB DAILY [facility]; Protocol Last Admin: 12/05/18 09:48 Dose: 100 mls/hr Magnesium Hydroxide (Milk Of Magnesia) 30 ml PO Q6 PRN PRN Reason: Constipation Last Admin: 12/04/18 05:50 Dose: 30 ml Magnesium Oxide (Mag-Ox) 400 mg PO DAILY [facility] Last Admin: 12/05/18 09:48 Dose: 400 mg Ondansetron HCl (Zofran Inj) 4 mg IVP Q6 PRN PRN Reason: Nausea/Vomiting Last Admin: 11/28/18 19:26 Dose: 4 mg Paricalcitol (Zemplar) 2 mcg IV MWF [facility] Prednisone (Prednisone Tab) 20 mg PO DAILY [facility] Last Admin: 12/05/18 09:48 Dose: 20 mg Tamsulosin HCl (Flomax) 0.4 mg PO BID [facility] Vitamin B Complex/Vit C/Folic Acid (Nephro-Brandy) 1 tab PO 0800 [facility] Last Admin: 12/05/18 09:48 Dose: 1 tab - Labs Labs: 12/05/18 07:44 12/05/18 07:44 PT 11.0 SECONDS (9.7-12.2) 11/28/18 08:03 INR 1.0 11/28/18 08:03 APTT 33 SECONDS (21-34) 11/28/18 08:03 - Constitutional Appears: Well - Head Exam Head Exam: ATRAUMATIC, NORMAL INSPECTION, NORMOCEPHALIC - Eye Exam Eye Exam: EOMI, Normal appearance, PERRL Pupil Exam: NORMAL ACCOMODATION, PERRL - ENT Exam ENT Exam: Mucous Membranes Moist, Normal Exam - Neck Exam Neck Exam: Full ROM, Normal Inspection. absent: Lymphadenopathy - Respiratory Exam Respiratory Exam: Clear to Ausculation Bilateral, NORMAL BREATHING PATTERN - Cardiovascular Exam Cardiovascular Exam: REGULAR RHYTHM, +S1, +S2. absent: Murmur - GI/Abdominal Exam GI & Abdominal Exam: Soft, Normal Bowel Sounds. absent: Tenderness - Exam Additional comments: Garcia catheter inserted and draining pale-yellow colored urine - Extremities Exam Extremities Exam: Full ROM, Normal Capillary Refill, Normal Inspection. absent: Joint Swelling, Pedal Edema - Back Exam Back Exam: NORMAL INSPECTION - Neurological Exam Neurological Exam: Alert, Awake, CN II-XII Intact, Normal Gait, Oriented x3 - Psychiatric Exam Psychiatric exam: Normal Affect, Normal Mood - Skin Skin Exam: Dry, Intact, Normal Color, Warm Assessment and Plan (1) Anemia in CKD (chronic kidney disease) Assessment & Plan: Hgb stable, below goal (10-11g); continue EPO on HD Status: Acute (2) Chronic kidney disease-mineral and bone disorder Assessment & Plan: Phos controlled, continue on phoslo 1 tab w/ meals Status: Acute (3) ESRD (end stage renal disease) Assessment & Plan: continue dialysis MWF Status: Acute (4) Fever Assessment & Plan: continue abx renally dosed Status: Acute (5) Gout Assessment & Plan: -colchicine every other day if needed -prednisone Status: Acute (6) Hypertensive CKD, ESRD on dialysis Assessment & Plan: continue amlodipine Status: Chronic <Neymar Charles - Last Filed: 12/06/18 05:13> Objective - Vital Signs/Intake and Output Vital Signs (last 24 hours): Temp Pulse Resp BP Pulse Ox 97.8 F 73 20 116/75 97 12/05/18 23:15 12/05/18 23:15 12/05/18 23:15 12/05/18 23:15 12/05/18 23:15 - Medications Medications: Current Medications Acetaminophen (Tylenol 325mg Tab) 650 mg PO Q6 PRN PRN Reason: Fever >100.4 F Last Admin: 12/02/18 23:45 Dose: 650 mg Allopurinol (Zyloprim) 100 mg PO DAILY [facility] Last Admin: 12/05/18 09:49 Dose: 100 mg Amlodipine Besylate (Norvasc) 5 mg PO DAILY [facility] Last Admin: 12/05/18 18:01 Dose: 667 mg Epoetin Gavin (Procrit) 10,000 unit IV MWF [facility] Last Admin: 12/04/18 20:06 Dose: 10,000 unit Finasteride (Proscar) 5 mg PO DAILY [facility] Last Admin: 12/05/18 09:48 Dose: 5 mg Vancomycin HCl 1 gm/ Sodium (Chloride) 250 mls @ 166.7 mls/hr IVPB MWF [facility]; Protocol Last Admin: 12/04/18 21:59 Dose: 166.7 mls/hr Ceftriaxone Sodium 1 gm/ (Sodium Chloride) 100 mls @ 100 mls/hr IVPB DAILY [facility]; Protocol Last Admin: 12/05/18 09:48 Dose: 100 mls/hr Magnesium Hydroxide (Milk Of Magnesia) 30 ml PO Q6 PRN PRN Reason: Constipation Last Admin: 12/04/18 05:50 Dose: 30 ml Magnesium Oxide (Mag-Ox) 400 mg PO DAILY [facility] Last Admin: 12/05/18 09:48 Dose: 400 mg Ondansetron HCl (Zofran Inj) 4 mg IVP Q6 PRN PRN Reason: Nausea/Vomiting Last Admin: 11/28/18 19:26 Dose: 4 mg Paricalcitol (Zemplar) 2 mcg IV MWF [facility] Prednisone (Prednisone Tab) 20 mg PO DAILY [facility] Last Admin: 12/05/18 09:48 Dose: 20 mg Tamsulosin HCl (Flomax) 0.4 mg PO BID [facility] Last Admin: 12/05/18 18:01 Dose: 0.4 mg Vitamin B Complex/Vit C/Folic Acid (Nephro-Brandy) 1 tab PO 0800 [facility] Last Admin: 12/05/18 09:48 Dose: 1 tab - Labs Labs: 12/05/18 07:44 12/05/18 07:44 PT 11.0 SECONDS (9.7-12.2) 11/28/18 08:03 INR 1.0 11/28/18 08:03 APTT 33 SECONDS (21-34) 11/28/18 08:03 Assessment and Plan (1) ESRD (end stage renal disease) Status: Acute (2) Fever Status: Acute (3) Hypertensive CKD, ESRD on dialysis Status: Chronic (4) Anemia in CKD (chronic kidney disease) Status: Acute (5) Chronic kidney disease-mineral and bone disorder Status: Acute (6) Gout Status: Acute Attending/Attestation - Attestation I have personally seen and examined this patient.: Yes I have fully participated in the care of the patient.: Yes I have reviewed all pertinent clinical information, including history, physical exam and plan: Yes Notes (Text): Providing nephrology coverage for Dr. Bacon: Patient seen and examined; I agree with the resident's note as above with the following additions/edits: 73 yo M w/ pmh of gout, HTN, anemia, and advanced CKD, admitted for worsening renal failure, initiated on HD as ESRD; No fever since past 2 days; cultures negative; getting ceftriaxone and vanco (should dose after HD); possibly due to gout flare; currently on PO prednisone; recommend against regular dosing of colchicine (accumulates in renal failure, not readily dialyzable); Stable volume and electrolyte status; continuing with HD on MWF schedule; Patient with urinary retention; seen by urology, garcia placed with resistance; will keep on flomax and finasteride; HTN of ESRD; BP on lower end of normal; adequate PO intake per patient/; will decrease amlodipine to 5 mg daily; Anemia of CKD, hgb below goal, continuing with EPO on HD;
[2018-12-06 07:51] LABS: CALCIUM 8.5 mg/dl (8.6-10.4)
[2018-12-06 08:00] LABS: MEAN CELL VOLUME 71.1 fL (80.0-94.0); MEAN CORPUSCULAR HEMOGLOBIN 21.7 pg (27.0-31.0); MEAN CORPUSCULAR HGB CONC 30.5 g/dL (33.0-37.0); MEAN PLATELET VOLUME 8.6 fL (7.2-11.7); RBC 3.69 Mil/uL (4.40-5.90); RED CELL DISTRIBUTION WIDTH 19.6 % (11.5-14.5); WHITE BLOOD COUNT 7.2 K/uL (4.8-10.8)
[2018-12-06] MEDS: Multivitamin Vitamin B Complex (Nephro-Vite) Tab PO SCH (08:55)
[2018-12-06] MEDS: Magnesium Oxide 400 mg Tab UD PO SCH (10:13)
[2018-12-06] MEDS ORDERED: Ferric Sodium Gluconat Complex 62.5 mg/5 ml Vial IVPB ONE (15:00)
[2018-12-06] MEDS: Paricalcitol 2 mcg/ml Inj IV SCH ×2 (15:08→16:19)
[2018-12-06] MEDS: Epoetin Alfa 10,000 unit/ml Dialysis IV SCH (15:08)
--- NOTE | 2018-12-06 21:06 | CP.PCM.PN ---
Subjective - Date & Time of Evaluation Date of Evaluation: 12/06/18 Time of Evaluation: 10:15 - Subjective Subjective: pt is seen and examined , follow up consult is dictated #[id number] check psa , hgb electrophoresis for hd today Objective - Vital Signs/Intake and Output Vital Signs (last 24 hours): Temp Pulse Resp BP Pulse Ox 97.8 F 60 20 125/72 95 12/06/18 17:12 12/06/18 17:12 12/06/18 17:12 12/06/18 17:12 12/06/18 17:12 - Medications Medications: Current Medications Acetaminophen (Tylenol 325mg Tab) 650 mg PO Q6 PRN PRN Reason: Fever >100.4 F Last Admin: 12/02/18 23:45 Dose: 650 mg Allopurinol (Zyloprim) 100 mg PO DAILY [facility] Last Admin: 12/06/18 10:13 Dose: Not Given Amlodipine Besylate (Norvasc) 5 mg PO DAILY [facility] Last Admin: 12/06/18 10:13 Dose: Not Given Calcium Acetate (Phoslo) 667 mg PO BIDCC [facility] Last Admin: 12/06/18 17:06 Dose: 667 mg Epoetin Gavin (Procrit) 10,000 unit IV MWF [facility] Last Admin: 12/06/18 15:08 Dose: 10,000 unit Finasteride (Proscar) 5 mg PO DAILY [facility] Last Admin: 12/06/18 10:13 Dose: Not Given Heparin Sodium (Porcine) (Heparin (For Dialysis)) 3,700 units IVP MWF [facility] Last Admin: 12/06/18 16:20 Dose: 3,700 units Ceftriaxone Sodium 1 gm/ (Sodium Chloride) 100 mls @ 100 mls/hr IVPB DAILY [facility]; Protocol Last Admin: 12/06/18 17:06 Dose: 100 mls/hr Vancomycin HCl 1 gm/ Sodium (Chloride) 250 mls @ 166.7 mls/hr IVPB MWF [facility]; Protocol Last Admin: 12/06/18 18:53 Dose: 166.7 mls/hr Magnesium Hydroxide (Milk Of Magnesia) 30 ml PO Q6 PRN PRN Reason: Constipation Last Admin: 12/04/18 05:50 Dose: 30 ml Magnesium Oxide (Mag-Ox) 400 mg PO DAILY [facility] Last Admin: 02/20/19 10:13 Dose: Not Given Ondansetron HCl (Zofran Inj) 4 mg IVP Q6 PRN PRN Reason: Nausea/Vomiting Last Admin: 11/28/18 19:26 Dose: 4 mg Paricalcitol (Zemplar) 2 mcg IV MWF [facility] Last Admin: 12/06/18 16:19 Dose: 2 mcg Prednisone (Prednisone Tab) 10 mg PO DAILY [facility] Last Admin: 12/06/18 10:13 Dose: Not Given Tamsulosin HCl (Flomax) 0.4 mg PO BID [facility] Last Admin: 12/06/18 17:06 Dose: 0.4 mg Vitamin B Complex/Vit C/Folic Acid (Nephro-Brandy) 1 tab PO 0800 [facility] Last Admin: 12/06/18 08:55 Dose: 1 tab - Labs Labs: 12/06/18 07:21 12/06/18 07:21 PT 11.0 SECONDS (9.7-12.2) 11/28/18 08:03 INR 1.0 11/28/18 08:03 APTT 33 SECONDS (21-34) 11/28/18 08:03
--- NOTE | 2018-12-07 06:44 | PN ---
DATE: 12/06/2018 LOCATION: Room 550, bed A. REQUESTED BY: Skye Harp MD REASON FOR RENAL CONSULTATION: End-stage renal disease, continuation of hemodialysis. SUBJECTIVE: Mr. Fallon is a 73-year-old very pleasant elderly [place] male with a past medical history significant for longstanding hypertension, gout, renal failure, anemia, was admitted with worsening renal function, feeling weak and tired and agreed for the renal replacement and started on hemodialysis three times a week after PermCath placement. The patient also underwent left forearm AV fistula last week. The patient is feeling better, not in acute distress. Denies any chest pain or palpitation. Denies any fever or cough. No abdominal pain. No nausea, vomiting, diarrhea. The patient has obstructive uropathy and requiring insertion of the Young catheter and started on Flomax and initially 0.4 mg subsequently increased to b.i.d. and also placed on Proscar 5 mg p.o. daily. The patient has still Young catheter at bedside. No complaints at this time, no chest pain, no palpitation, no fever, no cough. PHYSICAL EXAMINATION: GENERAL: Mr. Fallon is a 73-year-old elderly very thin-built, cachectic [place] male not in acute distress. VITAL SIGNS: This morning 118/72, pulse 70, respirations 20, temperature 97.2, saturation 97%. Height 5 feet 5 inches, weight is 99 pounds. HEENT: Pupils normal and reactive to light and accommodation. Conjunctiva pink. Sclerae anicteric. Tongue is moist. Trachea is midline. CARDIOVASCULAR SYSTEM: [place] at the fifth intercostal space, midclavicular area. S1, S2 audible. No murmur or gallop. LUNGS: Symmetric on both sides. Bilateral breath sounds present. Clear to auscultation. ABDOMEN: Normal in appearance, soft, tympanic. No guarding. No rigidity. No hepatosplenomegaly. EXTREMITIES: No cyanosis, no clubbing, no edema. CENTRAL NERVOUS SYSTEM: The patient is alert, awake, oriented x3. Sensory and motor system is grossly within normal limits. LABORATORY DATA: Include as follows: As of 12/06/2018, WBC 7.9, hemoglobin 8, hematocrit is 26.3, MCV 71 and platelets 175. Sodium 135, potassium 4.4, chloride 97, CO2 28, BUN 82, creatinine 4.1, glucose 107, calcium 8.5, total bili 0.3, AST 130, ALT 113, alkaline phosphatase 95, total protein 5.9, albumin is 3. PTH intact level is 350; and other laboratory data, iron 99, TIBC 276, saturation 36, and ferritin level is 288. ASSESSMENT AND PLAN: In summary, Mr. Fallon is a 73-year-old elderly [place] male with a past medical history significant for hypertension, gout, renal failure, was admitted with worsening renal function and weakness, found to have end-stage renal disease and started on hemodialysis after PermCath placement. 1. End-stage renal disease, most likely secondary to hypertension and bilateral cystic renal disease. Continue hemodialysis three times a week Tuesday, , Tuesday. 2. Hypertension. Blood pressure is under control. 3. Anemia secondary to renal failure with low MCV, with normal iron saturation, rule out hemoglobinopathies such as thalassemia. 4. Secondary hyperparathyroidism. Continue Zemplar three times a week during dialysis and also continue Epogen during dialysis. We will also check hemoglobin electrophoresis and PSA level. Blood cultures and urine cultures are negative as of 12/02/2018. We will follow with you. Thank you for allowing me to participate in your patient's care. Simran Bacon MD
[2018-12-07 08:07] LABS: HEMOGLOBIN 8.3 g/dL (12.0-18.0); MEAN CORPUSCULAR HEMOGLOBIN 21.6 pg (27.0-31.0); MEAN CORPUSCULAR HGB CONC 30.4 g/dL (33.0-37.0); MEAN PLATELET VOLUME 8.6 fL (7.2-11.7); RBC 3.83 Mil/uL (4.40-5.90); RED CELL DISTRIBUTION WIDTH 19.9 % (11.5-14.5); WHITE BLOOD COUNT 5.5 K/uL (4.8-10.8)
[2018-12-07] MEDS: Multivitamin Vitamin B Complex (Nephro-Vite) Tab PO SCH (08:09)
[2018-12-07 08:16] LABS: ALBUMIN 2.8 g/dL (3.5-5.0); CALCIUM 8.2 mg/dl (8.6-10.4)
[2018-12-07] MEDS: Magnesium Oxide 400 mg Tab UD PO SCH (09:09)
--- NOTE | 2018-12-07 10:37 | CP.PCM.PN ---
Subjective - Date & Time of Evaluation Date of Evaluation: 12/07/18 Time of Evaluation: 10:36 - Subjective Subjective: pt is seen and examined, follow up consult is dictated #[id number] Objective - Vital Signs/Intake and Output Vital Signs (last 24 hours): Temp Pulse Resp BP Pulse Ox 97.9 F 82 20 126/75 96 12/07/18 08:00 12/07/18 09:14 12/07/18 08:00 12/07/18 09:14 12/07/18 08:00 Intake and Output: 12/07/18 12/07/18 06:59 18:59 Intake Total 830 Output Total 1600 Balance -770 - Medications Medications: Current Medications Acetaminophen (Tylenol 325mg Tab) 650 mg PO Q6 PRN PRN Reason: Fever >100.4 F Last Admin: 12/02/18 23:45 Dose: 650 mg Allopurinol (Zyloprim) 100 mg PO DAILY [facility] Last Admin: 12/07/18 09:09 Dose: 100 mg Amlodipine Besylate (Norvasc) 5 mg PO DAILY [facility] Last Admin: 12/07/18 09:09 Dose: 5 mg Calcium Acetate (Phoslo) 667 mg PO BIDCC [facility] Last Admin: 12/07/18 08:09 Dose: 667 mg Epoetin Gavin (Procrit) 10,000 unit IV MWF [facility] Last Admin: 12/06/18 15:08 Dose: 10,000 unit Finasteride (Proscar) 5 mg PO DAILY [facility] Last Admin: 12/07/18 09:09 Dose: 5 mg Heparin Sodium (Porcine) (Heparin (For Dialysis)) 3,700 units IVP MWF [facility] Last Admin: 12/06/18 16:20 Dose: 3,700 units Ceftriaxone Sodium 1 gm/ (Sodium Chloride) 100 mls @ 100 mls/hr IVPB DAILY [facility]; Protocol Last Admin: 12/07/18 09:11 Dose: 100 mls/hr Vancomycin HCl 1 gm/ Sodium (Chloride) 250 mls @ 166.7 mls/hr IVPB MWF [facility]; Protocol Last Admin: 12/06/18 18:53 Dose: 166.7 mls/hr Magnesium Hydroxide (Milk Of Magnesia) 30 ml PO Q6 PRN PRN Reason: Constipation Last Admin: 12/04/18 05:50 Dose: 30 ml Magnesium Oxide (Mag-Ox) 400 mg PO DAILY [facility] Last Admin: 12/07/18 09:09 Dose: 400 mg Ondansetron HCl (Zofran Inj) 4 mg IVP Q6 PRN PRN Reason: Nausea/Vomiting Last Admin: 11/28/18 19:26 Dose: 4 mg Paricalcitol (Zemplar) 2 mcg IV MWF [facility] Last Admin: 12/06/18 16:19 Dose: 2 mcg Prednisone (Prednisone Tab) 10 mg PO DAILY [facility] Last Admin: 12/07/18 09:09 Dose: 10 mg Tamsulosin HCl (Flomax) 0.4 mg PO BID [facility] Last Admin: 12/07/18 09:09 Dose: 0.4 mg Vitamin B Complex/Vit C/Folic Acid (Nephro-Brandy) 1 tab PO 0800 [facility] Last Admin: 12/07/18 08:09 Dose: 1 tab - Labs Labs: 12/07/18 07:53 12/07/18 07:53 PT 11.0 SECONDS (9.7-12.2) 11/28/18 08:03 INR 1.0 11/28/18 08:03 APTT 33 SECONDS (21-34) 11/28/18 08:03
[2018-12-07 22:52] LABS: MCH 21.6 pg (27.0-33.0); MCV 72.4 fL (80.0-100.0)
--- NOTE | 2018-12-08 01:40 | PN ---
DATE: 12/07/2018 FOLLOWUP RENAL CONSULTATION LOCATION: Room 550, bed A. SUBJECTIVE: Mr. Fallon is a 73-year-old elderly [place] male with a past medical history significant for hypertension, gout, end-stage renal disease, was admitted with worsening renal function and started on renal replacement therapy and also found to have BPH with bladder outlet obstruction requiring Young catheter placement. The patient is not in acute distress. Denies any headache or dizziness. Denies any chest pain or palpitation. Denies any fever or cough. No abdominal pain. No nausea, vomiting, or diarrhea. PHYSICAL EXAMINATION: VITAL SIGNS: His blood pressure this morning 114/71, pulse 76, respirations 20, temperature 97.9, saturation 96%. Height 5 feet 5 inches, weight is 99 pounds. GENERAL: Mr. Fallon is a 73-year-old elderly [place] male, moderately built, moderately nourished, not in distress. HEENT: Pupils are normal and reactive to light and accommodation. Conjunctivae pink. Sclerae anicteric. Tongue is moist. Trachea is midline. LUNGS: Symmetric on both sides. Bilateral breath sounds present. Clear to auscultation. CARDIOVASCULAR SYSTEM: [place] at the fifth intercostal space, midclavicular line. S1 and S2 audible. No murmur or gallop. ABDOMEN: Normal in appearance, soft, tympanic. No guarding. No rigidity. No hepatosplenomegaly. CENTRAL NERVOUS SYSTEM: The patient is alert, awake, oriented x3. NEUROLOGIC: Nonfocal. Cranial nerves II-XII grossly intact. Sensory and motor system within normal limits. EXTREMITIES: No cyanosis, no clubbing, no edema. CURRENT MEDICATIONS: Include as follows: Rocephin 1 g daily, Flomax 0.4 mg p.o. b.i.d., heparin 3700 units intracatheter post dialysis three times a week, magnesium oxide 400 mg p.o. daily, Nephro-Brandy one tablet daily, Norvasc 5 mg daily, calcium acetate 667 mg p.o. b.i.d., prednisone 10 mg p.o. daily, Procrit 10,000 units three times a week, Proscar 5 mg p.o. daily, Tylenol, vancomycin 1 g three times a week, Zemplar 2 mcg three times a week on Tuesday, Tuesday and Tuesday, Zofran 4 mg IV every 6 hours p.r.n., allopurinol 100 mg p.o. daily. LABORATORY DATA: As follows: As of 12/07/2018, WBC 5.5, hemoglobin 8.3, hematocrit is 27.2, platelets 195. Sodium 135, potassium 4.7, chloride 96, CO2 of 32, BUN 46, creatinine 2.8, glucose 92, calcium 8.2, and total bili 0.3. AST 131, ALT 135, alkaline phosphatase 104, total protein 5.6, albumin is 2.8. Blood culture x2 negative as of 12/02/2018. Urine culture is also negative as of 12/02/2018. ASSESSMENT AND PLAN: In summary, Mr. Fallon is a 73-year-old elderly [place] male with a history of longstanding hypertension, gout, renal failure, benign prostatic hypertrophy, was admitted with worsening renal function requiring initiation of the renal replacement therapy, status post right intrajugular PermCath and left upper extremity arteriovenous fistula. 1. End-stage renal disease. Continue hemodialysis three times a week, Tuesday, Tuesday and Tuesday. 2. Hypertension. Blood pressure is stable. Continue his current medication. 3. Gout. 4. Benign prostatic hypertrophy. Continue Proscar and Flomax. Also continue his other current medications, Epogen 10,000 units three times a week and Zemplar three times a week. We will continue antibiotics as per Dr. Harp, Rocephin and vancomycin. The patient is accepted to outpatient hemodialysis unit in [facility], Tuesday, Tuesday and Tuesday at 09:30. Case discussed with Dr. Harp and sue from the renal standpoint for possible discharge. We will follow with you. Thank you for allowing me to participate in your patient's care. Simran Bacon MD
[2018-12-08] MEDS: Multivitamin Vitamin B Complex (Nephro-Vite) Tab PO SCH (08:25)
[2018-12-08] MEDS: Magnesium Oxide 400 mg Tab UD PO SCH (10:00)
[2018-12-08] MEDS: Epoetin Alfa 10,000 unit/ml Dialysis IV SCH (10:05)
[2018-12-08] MEDS: Paricalcitol 2 mcg/ml Inj IV SCH (10:06)
[2018-12-08 12:57] VITALS: O2SAT 97
[2018-12-08 14:15] LABS: HEMOGLOBIN 9.1 g/dL (12.0-18.0); MEAN CELL VOLUME 71.8 fL (80.0-94.0); MEAN CORPUSCULAR HEMOGLOBIN 21.7 pg (27.0-31.0); MEAN CORPUSCULAR HGB CONC 30.2 g/dL (33.0-37.0); MEAN PLATELET VOLUME 8.5 fL (7.2-11.7); RBC 4.18 Mil/uL (4.40-5.90); RED CELL DISTRIBUTION WIDTH 19.4 % (11.5-14.5); WHITE BLOOD COUNT 7.5 K/uL (4.8-10.8)
[2018-12-08 14:59] LABS: CALCIUM 8.4 mg/dl (8.6-10.4); URIC ACID 1.9 mg/dL (3.5-8.5)
--- NOTE | 2018-12-08 15:31 | CP.PCM.PN ---
Subjective - Date & Time of Evaluation Date of Evaluation: 12/08/18 Time of Evaluation: 15:31 Objective - Vital Signs/Intake and Output Vital Signs (last 24 hours): Temp Pulse Resp BP Pulse Ox 97.9 F 67 16 118/74 97 12/08/18 12:40 12/08/18 12:40 12/08/18 12:40 12/08/18 12:40 12/08/18 12:40 Intake and Output: 12/08/18 12/08/18 06:59 18:59 Output Total 1150 Balance -1150 - Medications Medications: Current Medications Acetaminophen (Tylenol 325mg Tab) 650 mg PO Q6 PRN PRN Reason: Fever >100.4 F Last Admin: 12/02/18 23:45 Dose: 650 mg Allopurinol (Zyloprim) 100 mg PO DAILY [facility] Last Admin: 12/08/18 10:00 Dose: Not Given Amlodipine Besylate (Norvasc) 5 mg PO DAILY [facility] Last Admin: 12/08/18 10:00 Dose: Not Given Calcium Acetate (Phoslo) 667 mg PO BIDCC [facility] Last Admin: 12/08/18 08:24 Dose: 667 mg Epoetin Gavin (Procrit) 10,000 unit IV MWF [facility] Last Admin: 12/08/18 10:05 Dose: 10,000 unit Finasteride (Proscar) 5 mg PO DAILY [facility] Last Admin: 12/08/18 10:00 Dose: Not Given Heparin Sodium (Porcine) (Heparin (For Dialysis)) 3,700 units IVP MWF [facility] Last Admin: 12/08/18 10:05 Dose: 3,700 units Ceftriaxone Sodium 1 gm/ (Sodium Chloride) 100 mls @ 100 mls/hr IVPB DAILY [facility]; Protocol Last Admin: 12/07/18 09:11 Dose: 100 mls/hr Vancomycin HCl 1 gm/ Sodium (Chloride) 250 mls @ 166.7 mls/hr IVPB MWF [facility]; Protocol Last Admin: 12/08/18 13:21 Dose: 166.7 mls/hr Magnesium Hydroxide (Milk Of Magnesia) 30 ml PO Q6 PRN PRN Reason: Constipation Last Admin: 12/04/18 05:50 Dose: 30 ml Magnesium Oxide (Mag-Ox) 400 mg PO DAILY [facility] Last Admin: 12/08/18 10:00 Dose: Not Given Ondansetron HCl (Zofran Inj) 4 mg IVP Q6 PRN PRN Reason: Nausea/Vomiting Last Admin: 11/28/18 19:26 Dose: 4 mg Paricalcitol (Zemplar) 2 mcg IV MWF [facility] Last Admin: 12/08/18 10:06 Dose: 2 mcg Prednisone (Prednisone Tab) 10 mg PO DAILY [facility] Last Admin: 12/08/18 10:00 Dose: Not Given Tamsulosin HCl (Flomax) 0.4 mg PO BID [facility] Last Admin: 12/08/18 10:00 Dose: Not Given Vitamin B Complex/Vit C/Folic Acid (Nephro-Brandy) 1 tab PO 0800 [facility] Last Admin: 12/08/18 08:25 Dose: 1 tab - Labs Labs: 12/08/18 14:00 12/08/18 14:00 PT 11.0 SECONDS (9.7-12.2) 11/28/18 08:03 INR 1.0 11/28/18 08:03 APTT 33 SECONDS (21-34) 11/28/18 08:03 Assessment and Plan - Assessment and Plan (Free Text) Assessment: FOLLOW UP WITH DR VASQUEZ IN HIS OFFICE ----CALL FOR APPOINTMENT FOLLOW UP WITH DR DEJESUS IN HIS OFFICE ------CALL FOR APPOINTMENT FOLLOW UP WITH DR PHILLIPS IN HIS OFFICE -----CALL FOR APPOINTMENT CONTINUE HOME MEDICATION NEW PRESCRIPTION GIVEN NORVASC 5 MG PO DAILY ALLOPURINOL 100 MG PO DAILY PROSCAR 5 MGPO DAILY [facility] T[facility]ER[facility] INSTRUCTED HEMODIALYSIS SCHEDULED CALL DR VASQUEZ OR GO TO THE EMERGENCY ROOM IF SYMPTOM RETURN OR WORSENING
[2018-12-08 16:53] VITALS: BP 130/80; PULSE 83; RESP 18; TEMP 98.4
--- NOTE | 2018-12-08 17:05 | CP.PCM.PN ---
Subjective - Date & Time of Evaluation Date of Evaluation: 12/08/18 Time of Evaluation: 09:00 - Subjective Subjective: afeb all culturees neg so far for d/c home with garcia Objective - Vital Signs/Intake and Output Vital Signs (last 24 hours): Temp Pulse Resp BP Pulse Ox 98.4 F 83 18 130/80 97 12/08/18 16:00 12/08/18 16:00 12/08/18 16:00 12/08/18 16:00 12/08/18 16:00 Intake and Output: 12/08/18 12/08/18 06:59 18:59 Output Total 1150 Balance -1150 - Medications Medications: Current Medications Acetaminophen (Tylenol 325mg Tab) 650 mg PO Q6 PRN PRN Reason: Fever >100.4 F Last Admin: 12/02/18 23:45 Dose: 650 mg Allopurinol (Zyloprim) 100 mg PO DAILY [facility] Last Admin: 12/08/18 10:00 Dose: Not Given Amlodipine Besylate (Norvasc) 5 mg PO DAILY [facility] Last Admin: 12/08/18 10:00 Dose: Not Given Calcium Acetate (Phoslo) 667 mg PO BIDCC [facility] Last Admin: 12/08/18 08:24 Dose: 667 mg Epoetin Gavin (Procrit) 10,000 unit IV MWF [facility] Last Admin: 12/08/18 10:05 Dose: 10,000 unit Finasteride (Proscar) 5 mg PO DAILY [facility] Last Admin: 12/08/18 10:00 Dose: Not Given Heparin Sodium (Porcine) (Heparin (For Dialysis)) [facility] Last Admin: 12/08/18 10:05 Dose: 3,700 units Ceftriaxone Sodium 1 gm/ (Sodium Chloride) 100 mls @ 100 mls/hr IVPB DAILY [facility]; Protocol Last Admin: 12/07/18 09:11 Dose: 100 mls/hr Vancomycin HCl 1 gm/ Sodium (Chloride) 250 mls @ 166.7 mls/hr IVPB MWF [facility]; Protocol Last Admin: 12/08/18 13:21 Dose: 166.7 mls/hr Magnesium Hydroxide (Milk Of Magnesia) 30 ml PO Q6 PRN PRN Reason: Constipation Last Admin: 12/04/18 05:50 Dose: 30 ml Magnesium Oxide (Mag-Ox) 400 mg PO DAILY [facility] Last Admin: 12/08/18 10:00 Dose: Not Given Ondansetron HCl (Zofran Inj) 4 mg IVP Q6 PRN PRN Reason: Nausea/Vomiting Last Admin: 11/28/18 19:26 Dose: 4 mg Paricalcitol (Zemplar) 2 mcg IV MWF [facility] Last Admin: 12/08/18 10:06 Dose: 2 mcg Prednisone (Prednisone Tab) 10 mg PO DAILY [facility] Last Admin: 12/08/18 10:00 Dose: Not Given Tamsulosin HCl (Flomax) 0.4 mg PO BID [facility] Last Admin: 12/08/18 10:00 Dose: Not Given Vitamin B Complex/Vit C/Folic Acid (Nephro-Brandy) 1 tab PO 0800 [facility] Last Admin: 12/08/18 08:25 Dose: 1 tab - Labs Labs: 12/08/18 14:00 12/08/18 14:00 PT 11.0 SECONDS (9.7-12.2) 11/28/18 08:03 INR 1.0 11/28/18 08:03 APTT 33 SECONDS (21-34) 11/28/18 08:03 - Constitutional Appears: Non-toxic, Cachectic, Chronically Ill - Head Exam Head Exam: NORMOCEPHALIC - Eye Exam Eye Exam: absent: Scleral icterus - ENT Exam ENT Exam: Mucous Membranes Dry - Neck Exam Neck Exam: absent: Lymphadenopathy - Respiratory Exam Respiratory Exam: Decreased Breath Sounds - Cardiovascular Exam Cardiovascular Exam: REGULAR RHYTHM - GI/Abdominal Exam GI & Abdominal Exam: Distended, Soft - Rectal Exam Rectal Exam: Deferred - Exam Exam: NORMAL INSPECTION - Extremities Exam Extremities Exam: absent: Pedal Edema - Back Exam Back Exam: absent: CVA tenderness (L), CVA tenderness (R) - Neurological Exam Neurological Exam: Alert, Awake, Oriented x3 Assessment and Plan (1) Anemia in CKD (chronic kidney disease) Status: Acute (2) Chronic kidney disease-mineral and bone disorder Status: Acute (3) ESRD (end stage renal disease) Status: Acute (4) Fever Status: Acute (5) Gout Status: Acute (6) Hypertensive CKD, ESRD on dialysis Status: Chronic - Assessment and Plan (Free Text) Assessment: ok to d/c home cont rx as out pt
--- NOTE | 2018-12-10 17:54 | CP.PCM.PN ---
Subjective - Date & Time of Evaluation Date of Evaluation: 12/08/18 Time of Evaluation: 08:30 - Subjective Subjective: afebrile cultures negative case discussed with Dr Mello Objective - Vital Signs/Intake and Output Vital Signs (last 24 hours): Temp Pulse Resp BP Pulse Ox 98.4 F 83 18 130/80 97 12/08/18 16:00 12/08/18 16:00 12/08/18 16:00 12/08/18 16:00 12/08/18 16:00 - Labs Labs: 12/08/18 14:00 12/08/18 14:00 PT 11.0 SECONDS (9.7-12.2) 11/28/18 08:03 INR 1.0 11/28/18 08:03 APTT 33 SECONDS (21-34) 11/28/18 08:03 - Constitutional Appears: Non-toxic - Head Exam Head Exam: NORMAL INSPECTION - Eye Exam Eye Exam: absent: Scleral icterus - Neck Exam Neck Exam: Full ROM - Respiratory Exam Respiratory Exam: Decreased Breath Sounds - Cardiovascular Exam Cardiovascular Exam: REGULAR RHYTHM - GI/Abdominal Exam GI & Abdominal Exam: Soft - Extremities Exam Extremities Exam: absent: Calf Tenderness, Pedal Edema Assessment and Plan (1) BPH (benign prostatic hyperplasia) Status: Chronic (2) Enlarged prostate with urinary retention Status: Acute (3) ESRD (end stage renal disease) Status: Chronic - Assessment and Plan (Free Text) Assessment: ESRD Gout HTN Anemia BPH Plan: Ok for DC case discussed with [facility]TIME C[facility]GIVER Will follow up in the office
--- NOTE | 2018-12-10 17:59 | CP.PCM.PN ---
Subjective - Date & Time of Evaluation Date of Evaluation: 12/07/18 Time of Evaluation: 09:00 - Subjective Subjective: NAD bilateral knee pain but resolving Objective - Vital Signs/Intake and Output Vital Signs (last 24 hours): Temp Pulse Resp BP Pulse Ox 98.4 F 83 18 130/80 97 12/08/18 16:00 12/08/18 16:00 12/08/18 16:00 12/08/18 16:00 12/08/18 16:00 - Labs Labs: 12/08/18 14:00 12/08/18 14:00 PT 11.0 SECONDS (9.7-12.2) 11/28/18 08:03 INR 1.0 11/28/18 08:03 APTT 33 SECONDS (21-34) 11/28/18 08:03 - Constitutional Appears: Non-toxic - Head Exam Head Exam: NORMAL INSPECTION - Eye Exam Eye Exam: absent: Scleral icterus - Neck Exam Neck Exam: Full ROM - Respiratory Exam Respiratory Exam: NORMAL BREATHING PATTERN - Cardiovascular Exam Cardiovascular Exam: REGULAR RHYTHM - GI/Abdominal Exam GI & Abdominal Exam: Normal Bowel Sounds - Extremities Exam Extremities Exam: Pedal Edema - Neurological Exam Neurological Exam: Alert, Normal Gait Assessment and Plan (1) BPH (benign prostatic hyperplasia) Status: Chronic (2) Enlarged prostate with urinary retention Status: Acute (3) ESRD (end stage renal disease) Status: Chronic - Assessment and Plan (Free Text) Assessment: ESRD BPH w/ urinary retention Anemia HTN Plan: Awaiting dialysis chair Cont meds
--- NOTE | 2018-12-10 18:30 | CP.PCM.PN ---
Subjective - Date & Time of Evaluation Date of Evaluation: 12/05/18 Time of Evaluation: 08:00 - Subjective Subjective: seen by ID c/o knee pain On steroids no chest pain Objective - Vital Signs/Intake and Output Vital Signs (last 24 hours): Temp Pulse Resp BP Pulse Ox 98.4 F 83 18 130/80 97 12/08/18 16:00 12/08/18 16:00 12/08/18 16:00 12/08/18 16:00 12/08/18 16:00 - Labs Labs: 12/08/18 14:00 12/08/18 14:00 PT 11.0 SECONDS (9.7-12.2) 11/28/18 08:03 INR 1.0 11/28/18 08:03 APTT 33 SECONDS (21-34) 11/28/18 08:03 - Constitutional Appears: Non-toxic - Head Exam Head Exam: NORMAL INSPECTION - Eye Exam Eye Exam: absent: Scleral icterus - Neck Exam Neck Exam: Full ROM - Respiratory Exam Respiratory Exam: Clear to Ausculation Bilateral Assessment and Plan (1) BPH (benign prostatic hyperplasia) Status: Chronic (2) Enlarged prostate with urinary retention Status: Acute (3) ESRD (end stage renal disease) Status: Chronic - Assessment and Plan (Free Text) Assessment: ESRD BPH w/ Urinary retention HTN Anemia Plan: Cont HD ID/ follow up
--- NOTE | 2018-12-10 19:55 | CP.PCM.PN ---
Subjective - Date & Time of Evaluation Date of Evaluation: 12/06/18 Time of Evaluation: 08:00 - Subjective Subjective: no chest pain no sob +bilateral knee pain Objective - Vital Signs/Intake and Output Vital Signs (last 24 hours): Temp Pulse Resp BP Pulse Ox 98.4 F 83 18 130/80 97 12/08/18 16:00 12/08/18 16:00 12/08/18 16:00 12/08/18 16:00 12/08/18 16:00 - Labs Labs: 12/08/18 14:00 12/08/18 14:00 PT 11.0 SECONDS (9.7-12.2) 11/28/18 08:03 INR 1.0 11/28/18 08:03 APTT 33 SECONDS (21-34) 11/28/18 08:03 - Constitutional Appears: Non-toxic - Eye Exam Eye Exam: absent: Scleral icterus - Neck Exam Neck Exam: Full ROM - Respiratory Exam Respiratory Exam: NORMAL BREATHING PATTERN - Cardiovascular Exam Cardiovascular Exam: REGULAR RHYTHM - GI/Abdominal Exam GI & Abdominal Exam: Soft - Exam Additional comments: +garcia in place - Extremities Exam Extremities Exam: absent: Pedal Edema - Neurological Exam Neurological Exam: Alert, Oriented x3 Assessment and Plan (1) BPH (benign prostatic hyperplasia) Status: Chronic (2) Enlarged prostate with urinary retention Status: Acute (3) ESRD (end stage renal disease) Status: Chronic - Assessment and Plan (Free Text) Assessment: ESRD BPH w/urinary retention HTN Anemia Gout Plan: Cont dialysis Cont garcia Abtx as per ID Renal/ID follow up
--- NOTE | 2018-12-10 20:05 | CP.PCM.PN ---
Subjective - Date & Time of Evaluation Date of Evaluation: 12/05/18 Time of Evaluation: 09:00 - Subjective Subjective: no fever on board garcia in place Objective - Vital Signs/Intake and Output Vital Signs (last 24 hours): Temp Pulse Resp BP Pulse Ox 98.4 F 83 18 130/80 97 12/08/18 16:00 12/08/18 16:00 12/08/18 16:00 12/08/18 16:00 12/08/18 16:00 - Labs Labs: 12/08/18 14:00 12/08/18 14:00 PT 11.0 SECONDS (9.7-12.2) 11/28/18 08:03 INR 1.0 11/28/18 08:03 APTT 33 SECONDS (21-34) 11/28/18 08:03 - Constitutional Appears: Non-toxic - Head Exam Head Exam: NORMAL INSPECTION - Eye Exam Eye Exam: absent: Scleral icterus - Neck Exam Neck Exam: Full ROM - Respiratory Exam Respiratory Exam: NORMAL BREATHING PATTERN - Cardiovascular Exam Cardiovascular Exam: REGULAR RHYTHM - GI/Abdominal Exam GI & Abdominal Exam: Soft - Exam Additional comments: garcia in place - Extremities Exam Extremities Exam: absent: Pedal Edema - Neurological Exam Neurological Exam: Alert, Oriented x3 Assessment and Plan (1) BPH (benign prostatic hyperplasia) Status: Chronic (2) Enlarged prostate with urinary retention Status: Acute (3) ESRD (end stage renal disease) Status: Chronic - Assessment and Plan (Free Text) Assessment: ESRD BPH w/ urinary retention- garcia in place HTN Anemia Plan: Cont dialysis Abtx as per ID
== END 2018-12-08 17:29 | disposition home or self-care (01) | DRG 315 ==
LOC: C.ER 07:17 → C.9E 07:56 → C.5S 08:56
PROVIDERS: ADMIT Internal Medicine; ATTEND Internal Medicine
PROC: 02HV33Z Insertion of Infusion Device into Superior Vena Cava, Percutaneous Approach (ICD-10-PCS; 2018-11-28)
PROC: 5A1D70Z Performance of Urinary Filtration, Intermittent, Less than 6 Hours Per Day (ICD-10-PCS; 2018-11-28)
PROC: B5181ZA Fluoroscopy of Superior Vena Cava using Low Osmolar Contrast, Guidance (ICD-10-PCS; 2018-11-28)
PROC: 5A1D70Z Performance of Urinary Filtration, Intermittent, Less than 6 Hours Per Day (ICD-10-PCS; 2018-11-29)
PROC: 03180ZD Bypass Left Brachial Artery to Upper Arm Vein, Open Approach (ICD-10-PCS; principal; 2018-11-30 14:15)
PROC: 5A1D70Z Performance of Urinary Filtration, Intermittent, Less than 6 Hours Per Day (ICD-10-PCS; 2018-12-04)
PROC: 5A1D70Z Performance of Urinary Filtration, Intermittent, Less than 6 Hours Per Day (ICD-10-PCS; 2018-12-06)
PROC: 5A1D70Z Performance of Urinary Filtration, Intermittent, Less than 6 Hours Per Day (ICD-10-PCS; 2018-12-08)
DX: I12.0 Hypertensive chronic kidney disease with stage 5 chronic kidney disease or end stage renal disease (principal); E87.2 Acidosis; E11.22 Type 2 diabetes mellitus with diabetic chronic kidney disease; J44.9 Chronic obstructive pulmonary disease, unspecified; N18.6 End stage renal disease; R64 Cachexia; D63.1 Anemia in chronic kidney disease; D50.9 Iron deficiency anemia, unspecified; M10.9 Gout, unspecified; M89.9 Disorder of bone, unspecified; N13.8 Other obstructive and reflux uropathy; N25.81 Secondary hyperparathyroidism of renal origin; R33.8 Other retention of urine; N40.1 Benign prostatic hyperplasia with lower urinary tract symptoms; Z68.1 Body mass index [BMI] 19.9 or less, adult; Z99.2 Dependence on renal dialysis

== ENCOUNTER 2018-12-28 18:26 | Inpatient (IN) | payer OTHER ==
[2018-12-28 18:54] VITALS: BMI 15.0
[2018-12-28] MEDS ORDERED: Sodium Chloride 0.9% 1,000 ML IV ONE (19:03)
[2018-12-28 19:10] LABS: VENOUS BLOOD GAS BASE EXCESS 7.2 mmol/L (0.0-2.0); VENOUS BLOOD GAS PCO2 35 mmHg (40-60); VENOUS BLOOD GAS PO2 37 mm/Hg (30-55); VENOUS BLOOD PH 7.54 (7.32-7.43)
[2018-12-28 19:17] LABS: BASO % 0.3 % (0.0-2.0); EOS % 0.1 % (0.0-4.0); HEMOGLOBIN 7.3 g/dL (12.0-18.0); LYMPH # 0.1 K/uL (1.0-4.3); LYMPH % 0.8 % (20.0-40.0); MEAN CELL VOLUME 71.2 fL (80.0-94.0); MEAN CORPUSCULAR HEMOGLOBIN 21.1 pg (27.0-31.0); MEAN CORPUSCULAR HGB CONC 29.6 g/dL (33.0-37.0); MEAN PLATELET VOLUME 7.2 fL (7.2-11.7); MONO # 0.8 K/uL (0.0-0.8); MONO % 5.3 % (0.0-10.0); NEUT # 14.3 K/uL (1.8-7.0); NEUT % 93.5 % (50.0-75.0); NRBC % 0.1 % (0.0-2.0); PLATELET COUNT 212 K/uL (130-400); RBC 3.45 Mil/uL (4.40-5.90); RED CELL DISTRIBUTION WIDTH 20.3 % (11.5-14.5); WHITE BLOOD COUNT 15.3 K/uL (4.8-10.8)
--- NOTE | 2018-12-28 19:21 | C.PDOC ---
History Of Present Illness 73 year old male is sent to the ED from his [facility] for evaluation of irregular heart beat. Upon arrival to the ED patient denies chest pain, SOB, palpitations. Patient is goes to dialysis Tuesday, and Tuesday. Patient reports he had dialysis today. Patient denies fever, chills, headache, nausea, vomit, diarrhea, rash, weakness, numbness. Time Seen by Provider: 12/28/18 19:21 Chief Complaint (Nursing): Palpitations History Per: Patient History/Exam Limitations: no limitations Onset/Duration Of Symptoms: Hrs Current Symptoms Are (Timing): Still Present Location Of Pain/Discomfort: Diffuse Radiation Of Pain To:: None Quality Of Discomfort: "Pain" Associated Symptoms: denies: Nausea, Vomiting, Diarrhea, Urinary Symptoms Recent travel outside of the [place]: No Additional History Per: Patient, [facility] Past Medical History Reviewed: Historical Data, Nursing Documentation, Vital Signs - Medical History PMH: HTN, End Stage Renal Disease, Chronic Kidney Disease (stage 5) Surgical History: No Surg Hx - [facility] Procedures (11/28/18) BYPASS LEFT BRACHIAL ARTERY TO UPPER ARM VEIN, OPEN APPROACH (11/28/18) FLUOROSCOPY OF SUP VENA CAVA USING L OSM CONTRAST, GUIDANCE (11/28/18) INSERTION OF INFUSION DEV INTO SUP VENA CAVA, PERC APPROACH (11/28/18) Family History: States: Unknown Family Hx - Social History Hx Alcohol Use: No Hx Substance Use: No - Immunization History Hx Tetanus Toxoid Vaccination: No Hx Influenza Vaccination: No Hx Pneumococcal Vaccination: No Review Of Systems Constitutional: Negative for: Fever, Chills Eyes: Negative for: Vision Change Cardiovascular: Negative for: Chest Pain, Palpitations Respiratory: Negative for: Shortness of Breath Gastrointestinal: Negative for: Nausea, Vomiting, Abdominal Pain Skin: Negative for: Rash Neurological: Negative for: Weakness, Numbness Physical Exam - Physical Exam Appears: Non-toxic, No Acute Distress Skin: Warm, Dry Head: Normacephalic Eye(s): bilateral: Normal Inspection Oral Mucosa: Moist Neck: Supple Chest: Symmetrical, Other (right side dialysis port) Cardiovascular: Rhythm Regular Respiratory: No Rales, No Rhonchi, No Wheezing Gastrointestinal/Abdominal: Soft, No Tenderness, No Guarding, No Rebound Extremity: Capillary Refill (< 2 seconds), Other (left arm graft good thrill and bruit) Extremity: Bilateral: Atraumatic, Normal ROM, Other (ankle swelling and tender to palpation) Pulses: Left Dorsalis Pedis: Normal, Right Dorsalis Pedis: Normal Neurological/Psych: Oriented x3, Normal Speech, Normal Cognition Gait: Steady ED Course And Treatment - Laboratory Results Result Diagrams: 12/28/18 19:11 12/28/18 19:11 Lab Results: pO2 37 mm/Hg (30-55) 12/28/18 19:05 VBG pH 7.54 (7.32-7.43) H 12/28/18 19:05 VBG pCO2 35 mmHg (40-60) L 12/28/18 19:05 VBG HCO3 30.0 mmol/L 12/28/18 19:05 VBG Total CO2 31.0 mmol/L (22-28) H 12/28/18 19:05 VBG O2 Sat (Calc) 81.8 % (40-65) H 12/28/18 19:05 VBG Base Excess 7.2 mmol/L (0.0-2.0) H 12/28/18 19:05 VBG Potassium 4.0 mmol/L (3.6-5.2) 12/28/18 19:05 Sodium 137.0 mmol/l (132-148) 12/28/18 19:05 Chloride 105.0 mmol/L (98-107) 12/28/18 19:05 Glucose 149 mg/dl (75-110) H 12/28/18 19:05 Lactate 1.7 mmol/L (0.7-2.1) 12/28/18 19:05 O2 Sat by Pulse Oximetry: 98 (ON RA) Pulse Ox Interpretation: Normal Progress Note: Plan: - VBG. - EKG. - Labs. - CXR. - IV fluids. - Blood culture. - UA Disposition Discussed With : Skye Harp Comment: accepted the pt on his service and took over the care at 8:49 PM Doctor Will See Patient In The: Hospital Counseled Patient/Family Regarding: Studies Performed, Diagnosis - Disposition Disposition: HOSPITALIZED Disposition Time: 19:21 Condition: FAIR Forms: [facility] (Turkish) - Clinical Impression Clinical Impression: ESRD (end stage renal disease), Anemia in CKD (chronic kidney disease), Leukocytosis - Scribe Statement The provider has reviewed the documentation as recorded by the Scribgilmer Gaffney All medical record entries made by the Christopheribgilmer were at my direction and personally dictated by me. I have reviewed the chart and agree that the record accurately reflects my personal performance of the history, physical exam, medical decision making, and the department course for this patient. I have also personally directed, reviewed, and agree with the discharge instructions and disposition. Decision To Admit - Pt Status Changed To: Hospital Disposition Of: Inpatient - Admit Certification Admit to Inpatient:: After my assessment, the patient will require hospitalization for at least two midnights. This is because of the severity of symptoms shown, intensity of services needed, and/or the medical risk in this patient being treated as an outpatient. - InPatient: Physician Admission Certification:: After my assessment, the patient will require hospitalization for at least two midnights. This is because of the severity of symptoms shown, intensity of services needed, and/or the medical risk in this patient being treated as an outpatient. - . Bed Request Type: Telemetry Admitting Physician: Skye Harp Patient Diagnosis: Palpitations, ESRD (end stage renal disease), Anemia in CKD (chronic kidney disease), Leukocytosis
[2018-12-28 19:33] LABS: ALBUMIN 3.2 g/dL (3.5-5.0); CALCIUM 8.5 mg/dl (8.6-10.4)
[2018-12-28 19:34] LABS: INR 1.3; PROTHROMBIN TIME 13.8 SECONDS (9.7-12.2)
[2018-12-28 19:44] LABS: CK-MB 1.07 ng/mL (0.0-3.38); TROPONIN I 0.037 ng/mL (0.00-0.120)
[2018-12-28 20:09] LABS: VENOUS BLOOD GAS BASE EXCESS -1.4 mmol/L (0.0-2.0); VENOUS BLOOD GAS PCO2 26 mmHg (40-60); VENOUS BLOOD GAS PO2 63 mm/Hg (30-55)
[2018-12-28 20:44] LABS: URINE BACTERIA MANY (<OCC); URINE BILIRUBIN NEGATIVE (NEGATIVE); URINE BLOOD 2+ (NEGATIVE); URINE CLARITY Hazy (Clear); URINE GLUCOSE (UA) NORMAL (Normal); URINE LEUKOCYTE ESTERASE 3+ Leu/uL (Negative); URINE PROTEIN 2+ mg/dL (NEGATIVE)
[2018-12-28] MEDS ORDERED: Piperacillin/Tazobact 3.375 gm 100 ML IVPB STA (20:51)
[2018-12-28 20:54] LABS: URINE COLOR YELLOW (YELLOW)
[2018-12-28] MEDS ORDERED: Piperacillin/Tazobact 3.375 gm 100 ML IVPB ONE (21:07)
[2018-12-28 21:15] LABS: ANISOCYTOSIS SLIGHT; BANDS 2 % (0-2); HYPOCHROMIC MODERATE; LYMPHOCYTE 1 % (20-40); MICROCYTOSIS SLIGHT; MONOCYTE 1 % (0-10); NEUTROPHIL 96 % (50-75); OVALOCYTES SLIGHT; PLATELET ESTIMATE NORMAL (NORMAL); TARGET CELLS SLIGHT; TOTAL CELLS COUNTED 100
--- NOTE | 2018-12-29 08:22 | RAD ---
Chest x-ray single frontal view HISTORY: Chest pain. COMPARISON: 11/28/2018 Findings: Right central venous catheter tip extending into the right atrium. Mild venous congestion. Right hilar prominence. Atherosclerotic calcification at the aortic knob. Tortuous ectatic aorta. Top normal heart size. Biapical pleural thickening with upper lobe granulomatous changes. Nodular density at the left midlung zone laterally may represent confluence shadows with ribs and vessels. Degenerative changes in the spine and shoulders. Impression: Right central venous catheter tip extending into the right atrium. Mild venous congestion. Right hilar prominence. Atherosclerotic calcification at the aortic knob. Tortuous ectatic aorta. Top normal heart size. Biapical pleural thickening with upper lobe granulomatous changes. Nodular density at the left midlung zone laterally may represent confluence shadows with ribs and vessels. Degenerative changes in the spine and shoulders.
--- NOTE | 2018-12-29 11:35 | CP.PCM.CON ---
History of Present Illness - History of Present Illness History of Present Illness: pt is seen and examined, full consult is dictated #[id number] Past Patient History - Past Medical History & Family History Past Medical History?: Yes - Past Social History Smoking Status: Never Smoked - CARDIAC Hx Hypertension: Yes - PULMONARY Hx Respiratory Disorders: No - NEUROLOGICAL Hx Neurological Disorder: No - HEENT Hx HEENT Problems: No - RENAL Hx Chronic Kidney Disease: Yes (stage 5) Date of Last Dialysis Treatment: 12/28/18 - ENDOCRINE/METABOLIC Hx Endocrine Disorders: No - HEMATOLOGICAL/ONCOLOGICAL Hx Blood Disorders: No - INTEGUMENTARY Hx Dermatological Problems: No - MUSCULOSKELETAL/RHEUMATOLOGICAL Hx Musculoskeletal Disorders: Yes Hx Falls: No Hx Gout: Yes - GASTROINTESTINAL Hx Gastrointestinal Disorders: No - GENITOURINARY/GYNECOLOGICAL Hx Genitourinary Disorders: No - PSYCHIATRIC Hx Psychophysiologic Disorder: No Hx Substance Use: No - SURGICAL HISTORY Hx Surgeries: No - ANESTHESIA Hx Anesthesia: No Hx Anesthesia Reactions: No Hx Malignant Hyperthermia: No Meds Allergies/Adverse Reactions: Allergies Allergy/AdvReac Type Severity Reaction Status Date / Time No Known Allergies Allergy Verified 12/28/18 18:56 - Medications Medications: Current Medications Allopurinol (Zyloprim) 100 mg PO DAILY [facility] Last Admin: 12/29/18 10:11 Dose: 100 mg Amlodipine Besylate (Norvasc) 5 mg PO DAILY [facility] Last Admin: 12/29/18 10:11 Dose: 5 mg Finasteride (Proscar) 5 mg PO DAILY [facility] Last Admin: 12/29/18 10:11 Dose: 5 mg Heparin Sodium (Porcine) (Heparin) 5,000 units SC Q12 [facility] Cefepime HCl 1 gm/ Dextrose 50 mls @ 100 mls/hr IVPB Q24H [facility]; Protocol Last Admin: 12/29/18 02:00 Dose: 100 mls/hr Influenza Virus Vaccine (Flucelvax Quad 5741-8170 Syr) 60 mcg IM .ONCE ONE Stop: 12/30/18 10:01 Pneumococcal Polyvalent Vaccine (Pneumovax 23 Vaccine) 0.5 ml IM .ONCE ONE Stop: 12/30/18 11:01 Tamsulosin HCl (Flomax) 0.4 mg PO HS [facility] Results - Vital Signs Recent Vital Signs: Last Vital Signs Temp 98.0 F 12/29/18 07:15 Pulse 86 12/29/18 07:15 Resp 18 12/29/18 07:15 BP 97/59 L 12/29/18 07:15 Pulse Ox 95 12/29/18 07:15 - Labs Result Diagrams: 12/28/18 19:11 12/28/18 19:11 Labs: Laboratory Results - last 24 hr 12/28/18 12/28/18 12/28/18 19:05 19:11 19:11 WBC 15.3 H D RBC 3.45 L Hgb 7.3 L Hct 24.6 L MCV 71.2 L MCH 21.1 L MCHC 29.6 L RDW 20.3 H Plt Count 212 MPV 7.2 Neut % (Auto) 93.5 H Lymph % (Auto) 0.8 L [place] % (Auto) 5.3 Eos % (Auto) 0.1 Baso % (Auto) 0.3 Neut # (Auto) 14.3 H Lymph # (Auto) 0.1 L [place] # (Auto) 0.8 Eos # (Auto) 0.0 Baso # (Auto) 0.0 Neutrophils % (Manual) 96 H Band Neutrophils % 2 Lymphocytes % (Manual) 1 L Monocytes % (Manual) 1 Platelet Estimate Normal Hypochromasia (manual) Moderate Anisocytosis (manual) Slight Microcytosis (manual) Slight Target Cells Slight Ovalocytes Slight PT 13.8 H INR 1.3 APTT 36 H pO2 37 VBG pH 7.54 H VBG pCO2 35 L VBG HCO3 30.0 VBG Total CO2 31.0 H VBG O2 Sat (Calc) 81.8 H VBG Base Excess 7.2 H VBG Potassium 4.0 Sodium 137.0 Chloride 105.0 Glucose 149 H Lactate 1.7 Potassium Carbon Dioxide Anion Gap BUN Creatinine Est GFR ( Amer) Est GFR (Non-Af Amer) Random Glucose Calcium Phosphorus Magnesium Total Bilirubin AST ALT Alkaline Phosphatase Total Creatine Kinase CK-MB (Mass) Troponin I Total Protein Albumin Globulin Albumin/Globulin Ratio Venous Blood Potassium 4.0 Urine Color Urine Clarity Urine pH Ur Specific Gamaliel Urine Protein Urine Glucose (UA) Urine Ketones Urine Blood Urine Nitrate Urine Bilirubin Urine Urobilinogen Ur Leukocyte Esterase Urine WBC (Auto) Urine RBC (Auto) Urine Bacteria Ur Yeast w Hyphae Urine Yeast (Budding) Influenza Typ A,B (EIA) 12/28/18 12/28/18 12/28/18 19:11 20:05 20:30 WBC RBC Hgb Hct MCV MCH MCHC RDW Plt Count MPV Neut % (Auto) Lymph % (Auto) [place] % (Auto) Eos % (Auto) Baso % (Auto) Neut # (Auto) Lymph # (Auto) [place] # (Auto) Eos # (Auto) Baso # (Auto) Neutrophils % (Manual) Band Neutrophils % Lymphocytes % (Manual) Monocytes % (Manual) Platelet Estimate Hypochromasia (manual) Anisocytosis (manual) Microcytosis (manual) Target Cells Ovalocytes PT INR APTT pO2 63 H VBG pH 7.50 H VBG pCO2 26 L VBG HCO3 23.7 VBG Total CO2 21.1 L VBG O2 Sat (Calc) 97.2 H VBG Base Excess -1.4 L VBG Potassium 2.6 L Sodium 136 145.0 Chloride 97 L 117.0 H Glucose 104 Lactate 0.8 Potassium 4.1 Carbon Dioxide 29 Anion Gap 14 BUN 25 H Creatinine 2.5 H Est GFR ( Amer) 31 Est GFR (Non-Af Amer) 26 Random Glucose 155 H Calcium 8.5 L Phosphorus 3.0 Magnesium 1.8 Total Bilirubin 0.5 AST 72 H D ALT 69 Alkaline Phosphatase 117 Total Creatine Kinase 122 CK-MB (Mass) 1.07 Troponin I 0.0370 Total Protein 6.4 Albumin 3.2 L Globulin 3.2 Albumin/Globulin Ratio 1.0 Venous Blood Potassium 2.6 L Urine Color Yellow Urine Clarity Hazy Urine pH 7.0 Ur Specific Gamaliel 1.009 Urine Protein 2+ H Urine Glucose (UA) Normal Urine Ketones Negative Urine Blood 2+ H Urine Nitrate Negative Urine Bilirubin Negative Urine Urobilinogen 2.0 Ur Leukocyte Esterase 3+ H Urine WBC (Auto) 28 H Urine RBC (Auto) 30 H Urine Bacteria Many H Ur Yeast w Hyphae Few H Urine Yeast (Budding) Few H Influenza Typ A,B (EIA) 12/29/18 04:18 WBC RBC Hgb Hct MCV MCH MCHC RDW Plt Count MPV Neut % (Auto) Lymph % (Auto) [place] % (Auto) Eos % (Auto) Baso % (Auto) Neut # (Auto) Lymph # (Auto) [place] # (Auto) Eos # (Auto) Baso # (Auto) Neutrophils % (Manual) Band Neutrophils % Lymphocytes % (Manual) Monocytes % (Manual) Platelet Estimate Hypochromasia (manual) Anisocytosis (manual) Microcytosis (manual) Target Cells Ovalocytes PT INR APTT pO2 VBG pH VBG pCO2 VBG HCO3 VBG Total CO2 VBG O2 Sat (Calc) VBG Base Excess VBG Potassium Sodium Chloride Glucose Lactate Potassium Carbon Dioxide Anion Gap BUN Creatinine Est GFR ( Amer) Est GFR (Non-Af Amer) Random Glucose Calcium Phosphorus Magnesium Total Bilirubin AST ALT Alkaline Phosphatase Total Creatine Kinase CK-MB (Mass) Troponin I Total Protein Albumin Globulin Albumin/Globulin Ratio Venous Blood Potassium Urine Color Urine Clarity Urine pH Ur Specific Gamaliel Urine Protein Urine Glucose (UA) Urine Ketones Urine Blood Urine Nitrate Urine Bilirubin Urine Urobilinogen Ur Leukocyte Esterase Urine WBC (Auto) Urine RBC (Auto) Urine Bacteria Ur Yeast w Hyphae Urine Yeast (Budding) Influenza Typ A,B (EIA) Negative for flu a/b
--- NOTE | 2018-12-29 13:36 | CARD ---
APPROVED REPORT Date of service: 12/28/2018 EKG Measurement Heart [id number] <Conclusion> Normal sinus rhythm with sinus arrhythmia Normal ECG
--- NOTE | 2018-12-29 14:08 | CP.PCM.CON ---
History of Present Illness - History of Present Illness History of Present Illness: 73 year old male is sent to the ED from his [facility] for evaluation of irregular heart beat. Upon arrival to the ED patient denies chest pain, SOB, palpitations. Patient is goes to dialysis Tuesday, and Tuesday. Patient reports he had dialysis today. Patient denies fever, chills, headache, nausea, vomit, diarrhea, rash, weakness, numbness. - Medical History PMH: HTN, End Stage Renal Disease, Chronic Kidney Disease (stage 5) Surgical History: No Surg Hx - [facility] Procedures (11/28/18) BYPASS LEFT BRACHIAL ARTERY TO UPPER ARM VEIN, OPEN APPROACH (11/28/18) FLUOROSCOPY OF SUP VENA CAVA USING L OSM CONTRAST, GUIDANCE (11/28/18) INSERTION OF INFUSION DEV INTO SUP VENA CAVA, PERC APPROACH (11/28/18) Review of Systems - Review of Systems All systems: reviewed and no additional remarkable complaints except - Constitutional Constitutional: As Per HPI, Fever - EENT Eyes: absent: As Per HPI, Blind Spots, Blurred Vision, Change in Vision, Decreased Night Vision, Diplopia, Discharge, Dry Eye, Exophthalmos, Floaters, Irritation, Itchy Eyes, Loss of Peripheral Vision, Pain, Photophobia, Requires Corrective Lenses, Sees Flashes, Spots in Vision, Tunnel Vision, Other Visual Disturbances, Loss of Vision, Other Ears: absent: As Per HPI, Decreased Hearing, Ear Discharge, Ear Pain, Tinnitus, Abnormal Hearing, Disequilibrium, Dizziness, Other Nose/Mouth/Throat: absent: As Per HPI, Epistaxis, Nasal Congestion, Nasal Discharge, Nasal Obstruction, Nasal Trauma, Nose Pain, Post Nasal Drip, Sinus Pain, Sinus Pressure, Bleeding Gums, Change in Voice, Dental Pain, Dry Mouth, Dysphagia, Halitosis, Hoarsness, Lip Swelling, Mouth Lesions, Mouth Pain, Odynophagia, Sore Throat, Throat Swelling, Tongue Swelling, Facial Pain, Neck Pain, Neck Mass, Other - Cardiovascular Cardiovascular: As Per HPI - Respiratory Respiratory: absent: As Per HPI, Cough, Dyspnea, Hemoptysis, Dyspnea on Exertion, Wheezing, Snoring, Stridor, Pain on Inspiration, Chest Congestion, Excessive Mucous Production, Change in Mucous Color, Pain with Coughing, Other - Gastrointestinal Gastrointestinal: absent: As Per HPI, Abdominal Pain, Belching, Bloating, Change in Bowel Habits, Change in Stool Character, Coffee Ground Emesis, Constipation, Cramping, Diarrhea, Dyspepsia, Dysphagia, Early Satiety, Excessive Flatus, Fecal Incontinence, Heartburn, Hematemesis, Hematochezia, Loose Stools, Melena, Nausea, Odynophagia, Temesmus, Vomiting, Other - Genitourinary Genitourinary: As Per HPI - Musculoskeletal Musculoskeletal: As Per HPI, Arthralgias, Joint Swelling, Limited Range of Motion - Integumentary Integumentary: absent: As Per HPI, Acne, Alopecia, Bleeding Lesions, Change in Hair, Change in Nails, Change in Pigmentation, Changing Lesions, Dry Skin, Erythema, Furuncle, Hirsutism, Lesions, New Lesions, Non-Healing Lesions, Photosensitivity, Pruritus, Rash, Skin Pain, Skin Ulcer, Sores, Striae, Swelling, Unusual Bruising, Wounds, Jaundice, Other - Neurological Neurological: absent: As Per HPI, Abnormal Gait, Abnormal Hearing, Abnormal Movements, Abnormal Speech, Behavioral Changes, Burning Sensations, Confusion, Convulsions, Disequilibrium, Dizziness, Numbness, Focal Weakness, Frequent Falls, Headaches, Lack of Coordination, Loss of Vision, Memory Loss, Paresthesias, Radicular Pain, Restless Legs, Sensory Deficit, Syncope, Tingling, Tremor, Vertigo, Weakness, Other Visual Disturbances, Other - Psychiatric Psychiatric: absent: As Per HPI, Abnormal Sleep Pattern, Anhedonia, Anxiety, Auditory Hallucinations, Behavioral Changes, Change in Appetite, Change in Libido, Confusion, Depression, Difficulty Concentrating, Hallucinations, Homicidal Ideation, Hopelessness, Irritability, Memory Loss, Mood Swings, Panic Attacks, Paranoia, Suicidal Ideation, Visual Hallucinations, Tactile Hallucinations, Other - Endocrine Endocrine: absent: As Per HPI, Change in Body Appearance, Change in Libido, Cold Intolorance, Deepening of Voice, Excessive Sweating, Fatigue, Flushing, Heat Intolorance, Increase in Ring/Shoe/Hat Size, Palpitations, Polydipsia, Polyphagia, Polyuria, Other - Hematologic/Lymphatic Hematologic: absent: As Per HPI, Easy Bleeding, Easy Bruising, Lymphadenopathy, Other Past Patient History - Past Medical History & Family History Past Medical History?: Yes - Past Social History Smoking Status: Never Smoked - CARDIAC Hx Hypertension: Yes - PULMONARY Hx Respiratory Disorders: No - NEUROLOGICAL Hx Neurological Disorder: No - HEENT Hx HEENT Problems: No - RENAL Hx Chronic Kidney Disease: Yes (stage 5) Date of Last Dialysis Treatment: 12/28/18 - ENDOCRINE/METABOLIC Hx Endocrine Disorders: No - HEMATOLOGICAL/ONCOLOGICAL Hx Blood Disorders: No - INTEGUMENTARY Hx Dermatological Problems: No - MUSCULOSKELETAL/RHEUMATOLOGICAL Hx Musculoskeletal Disorders: Yes Hx Falls: No Hx Gout: Yes - GASTROINTESTINAL Hx Gastrointestinal Disorders: No - GENITOURINARY/GYNECOLOGICAL Hx Genitourinary Disorders: No - PSYCHIATRIC Hx Psychophysiologic Disorder: No Hx Substance Use: No - SURGICAL HISTORY Hx Surgeries: No - ANESTHESIA Hx Anesthesia: No Hx Anesthesia Reactions: No Hx Malignant Hyperthermia: No Meds Allergies/Adverse Reactions: Allergies Allergy/AdvReac Type Severity Reaction Status Date / Time No Known Allergies Allergy Verified 12/28/18 18:56 - Medications Medications: Current Medications Allopurinol (Zyloprim) 100 mg PO DAILY [facility] Last Admin: 12/29/18 10:11 Dose: 100 mg Amlodipine Besylate (Norvasc) 5 mg PO DAILY [facility] Last Admin: 12/29/18 10:11 Dose: 5 mg Finasteride (Proscar) 5 mg PO DAILY [facility] Last Admin: 12/29/18 10:11 Dose: 5 mg Heparin Sodium (Porcine) (Heparin) 5,000 units SC Q12 [facility] Cefepime HCl 1 gm/ Dextrose 50 mls @ 100 mls/hr IVPB Q24H [facility]; Protocol Last Admin: 12/29/18 02:00 Dose: 100 mls/hr Influenza Virus Vaccine (Flucelvax Quad [id number] Syr) 60 mcg IM .ONCE ONE Stop: 12/30/18 10:01 Pneumococcal Polyvalent Vaccine (Pneumovax 23 Vaccine) 0.5 ml IM .ONCE ONE Stop: 12/30/18 11:01 Tamsulosin HCl (Flomax) 0.4 mg PO HS [facility] Physical Exam - Constitutional Appears: Non-toxic, Chronically Ill - Head Exam Head Exam: NORMOCEPHALIC - Eye Exam Eye Exam: absent: Scleral icterus Pupil Exam: NORMAL ACCOMODATION - ENT Exam ENT Exam: Mucous Membranes Dry, Normal Oropharynx - Neck Exam Neck exam: Negative for: Lymphadenopathy - Respiratory Exam Respiratory Exam: Decreased Breath Sounds - Cardiovascular Exam Cardiovascular Exam: REGULAR RHYTHM - GI/Abdominal Exam GI & Abdominal Exam: Diminished Bowel Sounds - Rectal Exam Rectal Exam: Deferred - Exam Exam: NORMAL INSPECTION - Extremities Exam Extremities exam: Positive for: tenderness. Negative for: full ROM, joint swelling, pedal edema - Neurological Exam Neurological exam: Alert, CN II-XII Intact, Oriented x3, Reflexes Normal - Psychiatric Exam Psychiatric exam: Depressed - Skin Skin Exam: Dry Results - Vital Signs Recent Vital Signs: Last Vital Signs Temp 98.0 F 12/29/18 07:15 Pulse 86 12/29/18 07:15 Resp 18 12/29/18 07:15 BP 97/59 L 12/29/18 07:15 Pulse Ox 95 12/29/18 07:15 - Labs Result Diagrams: 12/28/18 19:11 12/28/18 19:11 Labs: Laboratory Results - last 24 hr 12/28/18 12/28/18 12/28/18 19:05 19:11 19:11 WBC 15.3 H D RBC 3.45 L Hgb 7.3 L Hct 24.6 L MCV 71.2 L MCH 21.1 L MCHC 29.6 L RDW 20.3 H Plt Count 212 MPV 7.2 Neut % (Auto) 93.5 H Lymph % (Auto) 0.8 L [place] % (Auto) 5.3 Eos % (Auto) 0.1 Baso % (Auto) 0.3 Neut # (Auto) 14.3 H Lymph # (Auto) 0.1 L [place] # (Auto) 0.8 Eos # (Auto) 0.0 Baso # (Auto) 0.0 Neutrophils % (Manual) 96 H Band Neutrophils % 2 Lymphocytes % (Manual) 1 L Monocytes % (Manual) 1 Platelet Estimate Normal Hypochromasia (manual) Moderate Anisocytosis (manual) Slight Microcytosis (manual) Slight Target Cells Slight Ovalocytes Slight PT 13.8 H INR 1.3 APTT 36 H pO2 37 VBG pH 7.54 H VBG pCO2 35 L VBG HCO3 30.0 VBG Total CO2 31.0 H VBG O2 Sat (Calc) 81.8 H VBG Base Excess 7.2 H VBG Potassium 4.0 Sodium 137.0 Chloride 105.0 Glucose 149 H Lactate 1.7 Potassium Carbon Dioxide Anion Gap BUN Creatinine Est GFR ( Amer) Est GFR (Non-Af Amer) Random Glucose Calcium Phosphorus Magnesium Total Bilirubin AST ALT Alkaline Phosphatase Total Creatine Kinase CK-MB (Mass) Troponin I Total Protein Albumin Globulin Albumin/Globulin Ratio Venous Blood Potassium 4.0 Urine Color Urine Clarity Urine pH Ur Specific [place] Urine Protein Urine Glucose (UA) Urine Ketones Urine Blood Urine Nitrate Urine Bilirubin Urine Urobilinogen Ur Leukocyte Esterase Urine WBC (Auto) Urine RBC (Auto) Urine Bacteria Ur Yeast w Hyphae Urine Yeast (Budding) Influenza Typ A,B (EIA) 12/28/18 12/28/18 12/28/18 19:11 20:05 20:30 WBC RBC Hgb Hct MCV MCH MCHC RDW Plt Count MPV Neut % (Auto) Lymph % (Auto) [place] % (Auto) Eos % (Auto) Baso % (Auto) Neut # (Auto) Lymph # (Auto) [place] # (Auto) Eos # (Auto) Baso # (Auto) Neutrophils % (Manual) Band Neutrophils % Lymphocytes % (Manual) Monocytes % (Manual) Platelet Estimate Hypochromasia (manual) Anisocytosis (manual) Microcytosis (manual) Target Cells Ovalocytes PT INR APTT pO2 63 H VBG pH 7.50 H VBG pCO2 26 L VBG HCO3 23.7 VBG Total CO2 21.1 L VBG O2 Sat (Calc) 97.2 H VBG Base Excess -1.4 L VBG Potassium 2.6 L Sodium 136 145.0 Chloride 97 L 117.0 H Glucose 104 Lactate 0.8 Potassium 4.1 Carbon Dioxide 29 Anion Gap 14 BUN 25 H Creatinine 2.5 H Est GFR ( Amer) 31 Est GFR (Non-Af Amer) 26 Random Glucose 155 H Calcium 8.5 L Phosphorus 3.0 Magnesium 1.8 Total Bilirubin 0.5 AST 72 H D ALT 69 Alkaline Phosphatase 117 Total Creatine Kinase 122 CK-MB (Mass) 1.07 Troponin I 0.0370 Total Protein 6.4 Albumin 3.2 L Globulin 3.2 Albumin/Globulin Ratio 1.0 Venous Blood Potassium 2.6 L Urine Color Yellow Urine Clarity Hazy Urine pH 7.0 Ur Specific [place] 1.009 Urine Protein 2+ H Urine Glucose (UA) Normal Urine Ketones Negative Urine Blood 2+ H Urine Nitrate Negative Urine Bilirubin Negative Urine Urobilinogen 2.0 Ur Leukocyte Esterase 3+ H Urine WBC (Auto) 28 H Urine RBC (Auto) 30 H Urine Bacteria Many H Ur Yeast w Hyphae Few H Urine Yeast (Budding) Few H Influenza Typ A,B (EIA) 12/29/18 04:18 WBC RBC Hgb Hct MCV MCH MCHC RDW Plt Count MPV Neut % (Auto) Lymph % (Auto) [place] % (Auto) Eos % (Auto) Baso % (Auto) Neut # (Auto) Lymph # (Auto) [place] # (Auto) Eos # (Auto) Baso # (Auto) Neutrophils % (Manual) Band Neutrophils % Lymphocytes % (Manual) Monocytes % (Manual) Platelet Estimate Hypochromasia (manual) Anisocytosis (manual) Microcytosis (manual) Target Cells Ovalocytes PT INR APTT pO2 VBG pH VBG pCO2 VBG HCO3 VBG Total CO2 VBG O2 Sat (Calc) VBG Base Excess VBG Potassium Sodium Chloride Glucose Lactate Potassium Carbon Dioxide Anion Gap BUN Creatinine Est GFR ( Amer) Est GFR (Non-Af Amer) Random Glucose Calcium Phosphorus Magnesium Total Bilirubin AST ALT Alkaline Phosphatase Total Creatine Kinase CK-MB (Mass) Troponin I Total Protein Albumin Globulin Albumin/Globulin Ratio Venous Blood Potassium Urine Color Urine Clarity Urine pH Ur Specific [place] Urine Protein Urine Glucose (UA) Urine Ketones Urine Blood Urine Nitrate Urine Bilirubin Urine Urobilinogen Ur Leukocyte Esterase Urine WBC (Auto) Urine RBC (Auto) Urine Bacteria Ur Yeast w Hyphae Urine Yeast (Budding) Influenza Typ A,B (EIA) Negative for flu a/b Assessment & Plan (1) Anemia in CKD (chronic kidney disease) Status: Acute (2) Leukocytosis Status: Acute (3) ESRD (end stage renal disease) Status: Chronic (4) Chronic kidney disease-mineral and bone disorder Status: Acute (5) Enlarged prostate with urinary retention Status: Acute (6) Fever Status: Acute (7) Gout Status: Acute (8) BPH (benign prostatic hyperplasia) Status: Chronic (9) Hypertensive CKD, ESRD on dialysis Status: Chronic - Assessment and Plan (Free Text) Assessment: recurrent UTI r/o sepsis acute gouty arthritis ESRD on HD CAD failure to thrive cont IV antibiotics renal follow up Dr Dumont
--- NOTE | 2018-12-29 15:03 | RAD ---
Date of service: 12/29/2018 PROCEDURE: Bilateral Knee Radiographs. HISTORY: b/l knee swelling, r/o DJD, r/o effusion COMPARISON: None. FINDINGS: BONES: Bone alignment and mineralization are normal. There is no acute displaced fracture or bone destruction. There is mild tricompartmental degenerative osteoarthrosis with reduced joint spaces, marginal osteophytes and tibial spiking, worse in the medial compartment. SOFT TISSUES: Right Knee: Normal. Left Knee: Normal. JOINT EFFUSION: Right Knee: None. Left Knee: Small suprapatellar joint effusion. OTHER FINDINGS: None. IMPRESSION: No acute displaced fracture or dislocation. Mild lung compartmental degenerative osteoarthrosis, worse in the medial compartments. Small left suprapatellar joint effusion.
[2018-12-29] MEDS ORDERED: Paricalcitol 2 mcg/ml Inj IV ONE (23:36)
[2018-12-30 08:49] LABS: IRON 14 ug/dL (49-181)
[2018-12-30 08:52] LABS: URIC ACID 5.8 mg/dL (3.5-8.5)
[2018-12-30 08:59] LABS: % IRON SATURATION 9 (20-55); TOTAL IRON BINDING CAPACITY 155 ug/dL (250-450)
[2018-12-30 09:38] LABS: ALPHA FETO PROTEIN < 0.8 ng/mL (0.0-7.5)
--- NOTE | 2018-12-30 09:49 | CP.PCM.PN ---
Subjective - Date & Time of Evaluation Date of Evaluation: 12/30/18 Time of Evaluation: 09:48 - Subjective Subjective: pt is seen and examined, follow up consult is dictated #[id number] 1.esrd 2.Anemia 3.htn 4.sec.hpth 5.left knee pain and effusion r/o gout vs pseudo gout transfuse 2 units prbc during hd add nephrovite rx 1 tab poqd f/u with ortho Objective - Vital Signs/Intake and Output Vital Signs (last 24 hours): Temp Pulse Resp BP Pulse Ox 99.2 F 84 20 117/67 93 L 12/30/18 07:38 12/30/18 07:38 12/30/18 07:38 12/30/18 07:38 12/30/18 07:38 Intake and Output: 12/30/18 12/30/18 06:59 18:59 Intake Total 170 Balance 170 - Medications Medications: Current Medications Allopurinol (Zyloprim) 100 mg PO DAILY [facility] Last Admin: 12/29/18 10:11 Dose: 100 mg Amlodipine Besylate (Norvasc) 5 mg PO DAILY [facility] Last Admin: 12/29/18 10:11 Dose: 5 mg Epoetin Gavin (Procrit) 10,000 unit SC TTS [facility] Ferric Sodium Gluconate Complex (Ferrlecit) 125 mg IVPB DAILY [facility] Stop: 01/04/19 10:01 Finasteride (Proscar) 5 mg PO DAILY [facility] Last Admin: 12/29/18 10:11 Dose: 5 mg Fluconazole (Diflucan) 100 mg PO DAILY [facility]; Protocol Heparin Sodium (Porcine) (Heparin) 5,000 units SC Q12 [facility] Last Admin: 12/29/18 21:39 Dose: Not Given Cefepime HCl 1 gm/ Dextrose 50 mls @ 100 mls/hr IVPB Q24H [facility]; Protocol Last Admin: 12/30/18 00:54 Dose: 100 mls/hr Influenza Virus Vaccine (Flucelvax Quad [id number] Syr) 60 mcg IM .ONCE ONE Stop: 12/30/18 10:01 Paricalcitol (Zemplar) 2 mcg IV ONCE ONE Stop: 12/30/18 10:01 Pneumococcal Polyvalent Vaccine (Pneumovax 23 Vaccine) 0.5 ml IM .ONCE ONE Stop: 12/30/18 11:01 Tamsulosin HCl (Flomax) 0.4 mg PO HS [facility] Last Admin: 12/29/18 21:39 Dose: 0.4 mg - Labs Labs: 12/28/18 19:11 12/28/18 19:11 PT 13.8 SECONDS (9.7-12.2) H 12/28/18 19:11 INR 1.3 12/28/18 19:11 APTT 36 SECONDS (21-34) H 12/28/18 19:11
--- NOTE | 2018-12-30 09:52 | CON ---
DATE: 12/29/2018 RENAL CONSULTATION LOCATION: The patient is located in room 665, bed A. REASON FOR CONSULTATION: End-stage renal disease, left knee swelling, and for further evaluation. REQUESTED BY: Skye Harp MD HISTORY OF PRESENT ILLNESS: Mr. Fallon is a 73-year-old elderly, very thin, cachectic [place] male with history of longstanding hypertension, anemia, second hyperparathyroidism, gout, end-stage renal disease, started on hemodialysis recently, and also bladder outlet obstruction, BPH, status post Young catheter placement during his last admission, discharged home, on hemodialysis three times a week, Tuesday, , Tuesday. The patient was in the dialysis unit yesterday, complaining of severe knee pains, unable to ambulate and also swelling of the both knees. The patient was advised to come to the hospital for further evaluation. The patient is admitted for further evaluation of both knee pains. The patient denies any chest pain or palpitation. Denies any fever or cough. No abdominal pain. No nausea, vomiting, diarrhea, status post removal of the Young catheter in the emergency room, and the patient is voiding well. PAST MEDICAL HISTORY: Significant for longstanding hypertension, gout, BPH, end-stage renal disease, on hemodialysis for the last 1 month, and history of gout. PAST SURGICAL HISTORY: Status post left upper extremity AV fistula and right intrajugular PermCath. ALLERGIES: NO KNOWN DRUG ALLERGIES. SOCIAL HISTORY: No smoking. No alcohol. No drugs. PERSONAL HISTORY: He is , and he has a very supportive niece. CURRENT MEDICATIONS: Include as follows: Amlodipine 5 mg daily, Flomax 0.4 mg p.o. daily, Proscar 5 mg p.o. daily, allopurinol 100 mg p.o. daily. His current medications in the hospital include as follows: Cefepime 1 g daily, Diflucan 100 mg p.o. daily, Flomax 0.4 mg p.o. at bedtime, flu vaccine 60 mcg IM x1, subcu heparin 5000 units every 12 hours, amlodipine 5 mg daily, pneumococcal vaccine 0.5 mL x1, Proscar 5 mg p.o. daily, and allopurinol 100 mg p.o. daily. REVIEW OF SYSTEMS: Significant for bilateral knee swelling, left more than the right and pain and tenderness. All other review of systems are reviewed and are negative. PHYSICAL EXAMINATION: VITAL SIGNS: As follows: Blood pressure LABORATORY DATA: wbc 15.3, Hemoglobin 7.3, hematocrit is 24.6, MCV 71.2, platelets 212. Neutrophils 96, bands 2, and lymph 1. PT 13.8 and PTT 36. VBG, pH 7.54, pO2 of 37, pCO2 of 35, bicarb is 30, saturation 81.8. Sodium 136, potassium 4.1, chloride 97, CO2 of 29, BUN 25, creatinine 2.5, glucose 155, calcium 8.5, phosphorus 3, magnesium 1.8. Total bili 0.5, AST 72, ALT 69, alkaline phosphatase of 117, CK-MB 0.07, troponin 0.037, total protein 6.4, albumin is 3.2. Other laboratory data, urine is yellow, hazy, pH 7, specific 1.009, protein 2+, glucose normal, ketones negative, blood 2+, nitrites negative, bilirubin negative, urobilinogen 2, leukocyte esterase 3+, wbc 28, rbc 30, bacteria many, budding yeast few. Influenza A and B antibody screening is negative. As of 12/28/2018, chest x-ray, impression, biapical pleural thickening with upper lobe granulomatous changes, nodular density at the left mid lung zone laterally, may represent confluent shadows with ribs and vessels, degenerative changes in the spine and shoulders. X-ray of the knee joint, impression, no acute displaced fracture or dislocation. Mild tricompartmental degenerative osteoarthritis with reduced joint spaces, marginal osteophytes, and tibial spiking, worse in the medial compartment, right is normal, left is normal. Small left suprapatellar joint effusion. IMPRESSION AND PLAN: In summary, Mr. Fallon is a 73-year-old, very thin-built, cachectic [place] male with a history of hypertension, gout, benign prostatic hypertrophy, end-stage renal disease, second hyperparathyroidism, started on hemodialysis recently, was admitted with bilateral knee pain and swelling of the knee and difficult to ambulate, status post removal of the Young catheter. 1. End-stage renal disease. Continue hemodialysis three times a week, Tuesday, , Tuesday. 2. Anemia secondary to end-stage renal disease, rule out iron-deficiency anemia. 3. Gout. 4. Left knee effusion, rule out acute gouty arthritis versus pseudogout versus degenerative arthritis. PLAN: Type and screen and transfuse 1 unit of packed RBC during dialysis tomorrow. Check iron, TIBC, ferritin, B12, folic acid level, stool for occult blood; and also check CEA, CA 19-9, alpha-fetoprotein, and PSA. Consider orthopedic consult for possible joint aspiration and to rule out gout versus pseudogout versus degenerative joint disease. The case was discussed with Dr. Harp in rounds, and also discussed with the nurse practitioner, Lucia, in rounds. Thank you for allowing me to participate in your patient's care. Simran Bacon MD MTDD
[2018-12-30] MEDS ORDERED: Epoetin Alfa 10,000 unit/ml Dialysis SC SCH (10:00)
[2018-12-30] MEDS ORDERED: Influenza Vaccine 60 mcg/0.5 mL SYR (4YR UP) IM ONE (10:00)
[2018-12-30] MEDS ORDERED: Paricalcitol 2 mcg/ml Inj IV ONE (10:00)
--- NOTE | 2018-12-30 10:04 | CP.PCM.HP ---
History of Present Illness - History of Present Illness History of Present Illness: CC palpitations HPI 73 year old male is sent to the ED from his [facility] for evaluation of irregular heart beat. Upon arrival to the ED patient denies chest pain, SOB, palpitations. Patient is goes to dialysis Tuesday, and Tuesday. Patient reports he had dialysis today. Patient denies fever, chills, headache, nausea, vomit, diarrhea, rash, weakness, numbness. Present on Admission - Present on Admission Any Indicators Present on Admission: Yes Urinary Catheter: Yes Past Patient History - Past Medical History & Family History Past Medical History?: Yes - Past Social History Smoking Status: Never Smoked - CARDIAC Hx Hypertension: Yes - PULMONARY Hx Respiratory Disorders: No - NEUROLOGICAL Hx Neurological Disorder: No - HEENT Hx HEENT Problems: No - RENAL Hx Chronic Kidney Disease: Yes (stage 5) Date of Last Dialysis Treatment: 12/28/18 - ENDOCRINE/METABOLIC Hx Endocrine Disorders: No - HEMATOLOGICAL/ONCOLOGICAL Hx Blood Disorders: No - INTEGUMENTARY Hx Dermatological Problems: No - MUSCULOSKELETAL/RHEUMATOLOGICAL Hx Musculoskeletal Disorders: Yes Hx Falls: No Hx Gout: Yes - GASTROINTESTINAL Hx Gastrointestinal Disorders: No - GENITOURINARY/GYNECOLOGICAL Hx Genitourinary Disorders: No - PSYCHIATRIC Hx Psychophysiologic Disorder: No Hx Substance Use: No - SURGICAL HISTORY Hx Surgeries: No - ANESTHESIA Hx Anesthesia: No Hx Anesthesia Reactions: No Hx Malignant Hyperthermia: No Meds Allergies/Adverse Reactions: Allergies Allergy/AdvReac Type Severity Reaction Status Date / Time No Known Allergies Allergy Verified 12/28/18 18:56 Results - Vital Signs Recent Vital Signs: Last Vital Signs Temp 99.2 F 12/30/18 07:38 Pulse 84 12/30/18 07:38 Resp 20 12/30/18 07:38 BP 117/67 12/30/18 07:38 Pulse Ox 93 L 12/30/18 07:38 - Labs Result Diagrams: 12/28/18 19:11 12/28/18 19:11 Labs: Laboratory Results - last 24 hr 12/30/18 12/30/18 12/30/18 08:26 08:26 08:26 Uric Acid 5.8 Phosphorus 5.0 H Iron 14 L TIBC 155 L % Saturation 9 L Alpha Fetoprotein < 0.8 Carcinoembryonic Ag 5.2 H CA 19-9 Antigen 14.2 Prostate Specific Ag 2.58 Blood Type O POSITIVE Antibody Screen Negative Assessment & Plan - Assessment and Plan (Free Text) Assessment: Palpitations r/o Septic arthritis ESRD Degenerative Joint disease Plan: ID consult Orthopedic consult Renal consult - Date & Time Date: 12/29/18 Time: 09:30
[2018-12-30] MEDS: Ferric Sodium Gluconat Complex 62.5 mg/5 ml Vial IVPB SCH (10:05)
[2018-12-30] MEDS: Epoetin Alfa 10,000 unit/ml Dialysis IV SCH (10:24)
[2018-12-30] MEDS ORDERED: Pneumococcal 23-Valent Vaccine IM ONE (11:00)
--- NOTE | 2018-12-30 15:01 | PN ---
DATE: 12/30/2018 LOCATION: The patient is located in [facility] Room 665, bed A. REQUESTED BY: Skye Harp MD REASON FOR FOLLOWUP: End-stage renal disease, continuation of hemodialysis. SUBJECTIVE: Mr. Fallon is a 73-year-old very pleasant elderly [place]ien male with a history of hypertension, gout, end-stage renal disease, BPH, second hyperparathyroidism, anemia, was admitted with bilateral leg knee pains, difficult to ambulate. The patient was found to have left leg swelling and tenderness. The patient also found to have anemia. The patient denies any chest pain or palpitation. Denies any fever or cough. No abdominal pain. No nausea, vomiting, diarrhea. PHYSICAL EXAMINATION: VITAL SIGNS: This morning as follows; blood pressure 102/61, pulse 78, respirations 17, temperature 99.5, saturation 93%. Height 5 feet 6 inches, weight is 93 pounds. GENERAL: Mr. Fallon is a 73-year-old, very cachectic elderly [place]ien male, not in distress. HEENT: Pupils normal and reactive to light and accommodation. Conjunctiva pink. Sclerae anicteric. Tongue is moist. Trachea is midline. LUNGS: Symmetric on both sides. Bilateral breath sounds present. Clear to auscultation. CARDIOVASCULAR SYSTEM: [place] at the fifth intercostal space, midclavicular space, midclavicular line. S1 and S2 audible. No murmur or gallop. ABDOMEN: Normal in appearance, soft, tympanic. No guarding or rigidity. No hepatosplenomegaly. CENTRAL NERVOUS SYSTEM: The patient is alert, awake and oriented x3. Nonfocal neuro examination. Cranial nerves II through XII grossly intact. Sensory and motor system is within normal limits. EXTREMITIES: No cyanosis, no clubbing, no edema. The patient has swelling of the both knees, left more than the right. The patient has also suprapatellar effusion on the left side. MEDICATIONS: His current medications include as follows, cefepime 1 g every 24 hours, Diflucan 100 mg daily, ferrous gluconate 125 mg IV daily, Flomax 0.4 mg daily, subcu heparin 5000 every 12 hours, Norvasc 5 mg daily, pneumococcal vaccine and Procrit 10,000 three times a week, Proscar 5 mg p.o. daily, allopurinol 100 mg p.o. daily. LABORATORY DATA: Include as follows; serum uric acid 5.8, phosphorus level is 5 and iron is 14, TIBC 155, saturation is 9, ferritin level is pending and alpha-fetoprotein is 0.8 and CEA is 5.2, CA 19-9 is 14.2. ProPSA is 2.58. Urine culture as of 12/28/2018 is positive for Klebsiella pneumoniae and yeast and blood culture x2 is negative day 1. SUMMARY: Mr. Fallon is a 73-year-old elderly [place]ien male with a history of hypertension, gout, secondary hyperparathyroidism, end-stage renal disease, benign prostatic hypertrophy, admitted with bilateral knee pain, left more than the right with swelling of the left knee, status post removal of Young catheter in the emergency room. 1. End-stage renal disease. Continue hemodialysis three times a week, Tuesday, , Tuesday. 2. Anemia, secondary to renal failure and iron-deficiency anemia. 3. Urinary tract infection. 4. Hypertension. 5. Left knee swelling, rule out gout versus pseudogout. PLAN: Continue allopurinol and follow with Orthopedic Surgery for possible aspiration of the knee joint and analysis of the crystals if possible. Thank you for allowing me to participate in your patient's care. We will transfuse 2 units of packed RBC during dialysis. Discussed with the patient, agreed for the blood transfusion and follow up with Orthopedic Surgery. Simran Bacon MD
[2018-12-31] MEDS: Multivitamin Vitamin B Complex (Nephro-Vite) Tab PO SCH (08:30)
[2018-12-31] MEDS: Ferric Sodium Gluconat Complex 62.5 mg/5 ml Vial IVPB SCH (10:10)
--- NOTE | 2018-12-31 14:53 | CP.PCM.PN ---
Subjective - Date & Time of Evaluation Date of Evaluation: 12/31/18 Time of Evaluation: 09:00 - Subjective Subjective: less pain no fever alert responsive Objective - Vital Signs/Intake and Output Vital Signs (last 24 hours): Temp Pulse Resp BP Pulse Ox 97.6 F 88 20 117/73 96 12/31/18 07:20 12/31/18 07:48 12/31/18 07:20 12/31/18 07:20 12/31/18 07:20 Intake and Output: 12/31/18 12/31/18 06:59 18:59 Intake Total 250 Balance 250 - Medications Medications: Current Medications Acetaminophen (Tylenol 325mg Tab) 650 mg PO Q6 PRN PRN Reason: Fever >100.4 F Allopurinol (Zyloprim) 100 mg PO DAILY [facility] Last Admin: 12/31/18 10:11 Dose: 100 mg Amlodipine Besylate (Norvasc) 5 mg PO DAILY [facility] Last Admin: 12/31/18 10:12 Dose: 5 mg Epoetin Gavin (Procrit) 10,000 unit IV TTS [facility] Last Admin: 12/30/18 10:24 Dose: 10,000 unit Ferric Sodium Gluconate Complex (Ferrlecit) 125 mg IVPB DAILY [facility] Stop: 01/04/19 10:01 Last Admin: 12/31/18 10:10 Dose: 125 mg Finasteride (Proscar) 5 mg PO DAILY [facility] Last Admin: 12/31/18 10:11 Dose: 5 mg Fluconazole (Diflucan) 100 mg PO DAILY [facility]; Protocol Last Admin: 12/31/18 10:10 Dose: 100 mg Heparin Sodium (Porcine) (Heparin) 5,000 units SC Q12 [facility] Last Admin: 12/31/18 10:12 Dose: 5,000 units Cefepime HCl 1 gm/ Dextrose 50 mls @ 100 mls/hr IVPB Q24H [facility]; Protocol Last Admin: 12/31/18 00:46 Dose: 100 mls/hr Sevelamer Carbonate (Renvela) 800 mg PO TIDCC [facility] Last Admin: 12/31/18 12:21 Dose: 800 mg Tamsulosin HCl (Flomax) 0.4 mg PO HS [facility] Last Admin: 12/29/18 21:39 Dose: 0.4 mg Vitamin B Complex/Vit C/Folic Acid (Nephro-Brandy) 1 tab PO 0800 [facility] Last Admin: 12/31/18 08:30 Dose: 1 tab - Labs Labs: 12/28/18 19:11 12/28/18 19:11 PT 13.8 SECONDS (9.7-12.2) H 12/28/18 19:11 INR 1.3 12/28/18 19:11 APTT 36 SECONDS (21-34) H 12/28/18 19:11 - Constitutional Appears: Non-toxic, Chronically Ill - Head Exam Head Exam: NORMOCEPHALIC - Eye Exam Eye Exam: absent: Scleral icterus - ENT Exam ENT Exam: Mucous Membranes Dry - Neck Exam Neck Exam: absent: Lymphadenopathy - Respiratory Exam Respiratory Exam: Decreased Breath Sounds - Cardiovascular Exam Cardiovascular Exam: REGULAR RHYTHM - GI/Abdominal Exam GI & Abdominal Exam: Distended, Soft - Rectal Exam Rectal Exam: Deferred - Exam Exam: NORMAL INSPECTION Assessment and Plan (1) Anemia in CKD (chronic kidney disease) Status: Acute (2) Leukocytosis Status: Acute (3) ESRD (end stage renal disease) Status: Chronic (4) Chronic kidney disease-mineral and bone disorder Status: Acute (5) Enlarged prostate with urinary retention Status: Acute (6) Fever Status: Acute (7) Gout Status: Acute (8) BPH (benign prostatic hyperplasia) Status: Chronic (9) Hypertensive CKD, ESRD on dialysis Status: Chronic
--- NOTE | 2018-12-31 15:13 | CP.PCM.PN ---
Subjective - Date & Time of Evaluation Date of Evaluation: 12/31/18 Time of Evaluation: 15:12 - Subjective Subjective: pt is seen and examined, follow up consult is dictated #[id number] Objective - Vital Signs/Intake and Output Vital Signs (last 24 hours): Temp Pulse Resp BP Pulse Ox 97.6 F 88 20 117/73 96 12/31/18 07:20 12/31/18 07:48 12/31/18 07:20 12/31/18 07:20 12/31/18 07:20 Intake and Output: 12/31/18 12/31/18 06:59 18:59 Intake Total 250 Balance 250 - Medications Medications: Current Medications Acetaminophen (Tylenol 325mg Tab) 650 mg PO Q6 PRN PRN Reason: Fever >100.4 F Allopurinol (Zyloprim) 100 mg PO DAILY [facility] Last Admin: 12/31/18 10:11 Dose: 100 mg Amlodipine Besylate (Norvasc) 5 mg PO DAILY [facility] Last Admin: 12/31/18 10:12 Dose: 5 mg Epoetin Gavin (Procrit) 10,000 unit IV TTS [facility] Last Admin: 12/30/18 10:24 Dose: 10,000 unit Ferric Sodium Gluconate Complex (Ferrlecit) 125 mg IVPB DAILY [facility] Stop: 01/04/19 10:01 Last Admin: 12/31/18 10:10 Dose: 125 mg Finasteride (Proscar) 5 mg PO DAILY [facility] Last Admin: 12/31/18 10:11 Dose: 5 mg Fluconazole (Diflucan) 100 mg PO DAILY [facility]; Protocol Last Admin: 12/31/18 10:10 Dose: 100 mg Heparin Sodium (Porcine) (Heparin) 5,000 units SC Q12 [facility] Last Admin: 12/31/18 10:12 Dose: 5,000 units Cefepime HCl 1 gm/ Dextrose 50 mls @ 100 mls/hr IVPB Q24H [facility]; Protocol Last Admin: 12/31/18 00:46 Dose: 100 mls/hr Sevelamer Carbonate (Renvela) 800 mg PO TIDCC [facility] Last Admin: 12/31/18 12:21 Dose: 800 mg Tamsulosin HCl (Flomax) 0.4 mg PO HS [facility] Last Admin: 12/29/18 21:39 Dose: 0.4 mg Vitamin B Complex/Vit C/Folic Acid (Nephro-Brandy) 1 tab PO 0800 [facility] Last Admin: 12/31/18 08:30 Dose: 1 tab - Labs Labs: 12/28/18 19:11 12/28/18 19:11 PT 13.8 SECONDS (9.7-12.2) H 12/28/18 19:11 INR 1.3 12/28/18 19:11 APTT 36 SECONDS (21-34) H 12/28/18 19:11
--- NOTE | 2019-01-01 02:39 | PN ---
DATE: 12/31/2018 LOCATION: The patient is located in room 665, bed A. REASON FOR FOLLOWUP: End-stage renal disease for continuation of hemodialysis. SUBJECTIVE: Mr. Fallon is a 73-year-old elderly Thai male with a past medical history significant for hypertension, gout, end-stage renal disease, BPH, anemia, was admitted with bilateral knee swelling, difficult to ambulate for the last two weeks and the left leg is swollen and tender status post removal of the Young catheter in emergency room on admission. The patient still complains of pain and difficult to ambulate. Denies any chest pain or palpitation. Denies any fever or cough. No abdominal pain, no nausea, vomiting, diarrhea. PHYSICAL EXAMINATION: GENERAL: Mr. Fallon is a 73-year-old elderly male, moderately built, moderately nourished, not in acute distress. VITAL SIGNS: Blood pressure 117/73, pulse 70, respirations 20, temperature 97.6, saturation 96%. Height 5 feet 6 inches, weight is 94 pounds. HEENT: Pupils normal, reactive to light and accommodation. Conjunctivae pink. Sclerae anicteric. Tongue is moist. Trachea is midline. LUNGS: Symmetric on both sides. Bilateral breath sounds present. Clear to auscultation. CVS: [place] at the fifth intercostal space, midclavicular line. S1 and S2 audible. No murmur or gallop. ABDOMEN: Normal in appearance, soft, tympanic. No guarding, no rigidity. No hepatosplenomegaly. LATCHER: The patient is alert, awake and oriented x3, nonfocal. NEURO: Cranial nerves II-XII grossly intact. Sensory and motor system is within normal limits. EXTREMITIES: No cyanosis, no clubbing, no edema. The patient has swelling of both knees. Left is more than the right and suprapatellar effusion is present. LABORATORY DATA: No new labs available for today. Alpha-fetoprotein less than 0.8, CEA 5.2 and CA 19-9 is 14.2. PSA is 2.5. Procalcitonin is 4.6. CURRENT MEDICATIONS: Include as follows: Cefepime 1 g every 24 hours, Diflucan 100 mg p.o. daily, Ferrlecit 125 mg daily, Flomax 0.4 mg p.o. daily, subcu heparin 5000 every 12 hours, Nephro-Brandy 1 tablet daily, amlodipine 5 mg p.o. daily, Procrit [id number] three times a week, Proscar 5 mg daily, Renvela 800 mg p.o. daily, Tylenol 650 mg p.o. every 6 hours, and allopurinol 100 mg p.o. daily. ASSESSMENT AND PLAN: In summary, Mr. Fallon is a 73-year-old Elderly Thai male with hypertension, gout, anemia, end-stage renal disease, with bilateral knee pain, left knee swelling with joint effusion. 1. End-stage renal disease. Continue hemodialysis three times a week Tuesday, , Tuesday. 2. Hypertension. 3. Anemia secondary to renal failure and iron-deficiency anemia. Continue IV Ferrlecit. Continue Epogen. 4. Bilateral knee joint pain, rule out gout versus pseudogout. Continue allopurinol, and we will add Percocet 1 tablet p.o. every 6 hours p.r.n. for pain. We will follow with you. Thank you for allowing me to participate in your patient's care and follow up with Orthopedic Surgery for possible joint aspiration and crystal identification. Simran Bacon MD
[2019-01-01 07:22] LABS: MEAN CORPUSCULAR HEMOGLOBIN 23.8 pg (27.0-31.0); MEAN CORPUSCULAR HGB CONC 31.2 g/dL (33.0-37.0); MEAN PLATELET VOLUME 7.8 fL (7.2-11.7); RBC 4.18 Mil/uL (4.40-5.90); RED CELL DISTRIBUTION WIDTH 22.4 % (11.5-14.5); WHITE BLOOD COUNT 9.7 K/uL (4.8-10.8)
[2019-01-01 07:27] LABS: MEAN CELL VOLUME 76.2 fL (80.0-94.0)
[2019-01-01 08:19] LABS: ALB/GLOB RATIO 0.9 (1.0-2.1); ALBUMIN 2.7 g/dL (3.5-5.0); CALCIUM 8.5 mg/dl (8.6-10.4)
[2019-01-01] MEDS: Multivitamin Vitamin B Complex (Nephro-Vite) Tab PO SCH (08:31)
[2019-01-01] MEDS: Ferric Sodium Gluconat Complex 62.5 mg/5 ml Vial IVPB SCH (09:50)
--- NOTE | 2019-01-01 20:11 | CP.PCM.PN ---
Subjective - Date & Time of Evaluation Date of Evaluation: 01/01/19 Time of Evaluation: 20:11 - Subjective Subjective: pt is seen and examined, follow up consult is dictated #[id number] will solumedrol 40 mg ivpb, protonix 40 mg ivpbx1, percocert for pain Objective - Vital Signs/Intake and Output Vital Signs (last 24 hours): Temp Pulse Resp BP Pulse Ox 97.7 F 78 20 107/65 97 01/01/19 15:00 01/01/19 15:15 01/01/19 15:00 01/01/19 15:00 01/01/19 15:00 - Medications Medications: Current Medications Acetaminophen (Tylenol 325mg Tab) 650 mg PO Q6 PRN PRN Reason: Fever >100.4 F Last Admin: 01/01/19 06:52 Dose: 650 mg Allopurinol (Zyloprim) 100 mg PO DAILY [facility] Last Admin: 01/01/19 09:51 Dose: 100 mg Amlodipine Besylate (Norvasc) 5 mg PO DAILY [facility] Last Admin: 01/01/19 09:51 Dose: 5 mg Epoetin Gavin (Procrit) 10,000 unit IV TTS [facility] Last Admin: 12/30/18 10:24 Dose: 10,000 unit Ferric Sodium Gluconate Complex (Ferrlecit) 125 mg IVPB DAILY [facility] Stop: 01/04/19 10:01 Last Admin: 01/01/19 09:50 Dose: 125 mg Finasteride (Proscar) 5 mg PO DAILY [facility] Last Admin: 01/01/19 09:51 Dose: 5 mg Fluconazole (Diflucan) 100 mg PO DAILY [facility]; Protocol Last Admin: 01/01/19 09:51 Dose: 100 mg Cefepime HCl 1 gm/ Dextrose 50 mls @ 100 mls/hr IVPB Q24H [facility]; Protocol Last Admin: 01/01/19 01:04 Dose: 100 mls/hr Sevelamer Carbonate (Renvela) 800 mg PO TIDCC [facility] Last Admin: 01/01/19 17:49 Dose: 800 mg Tamsulosin HCl (Flomax) 0.4 mg PO HS [facility] Last Admin: 12/31/18 22:05 Dose: 0.4 mg Vitamin B Complex/Vit C/Folic Acid (Nephro-Brandy) 1 tab PO 0800 [facility] Last Admin: 01/01/19 08:31 Dose: 1 tab - Labs Labs: 01/01/19 07:09 01/01/19 07:09 PT 13.8 SECONDS (9.7-12.2) H 12/28/18 19:11 INR 1.3 12/28/18 19:11 APTT 36 SECONDS (21-34) H 12/28/18 19:11
[2019-01-01] MEDS ORDERED: MethylPREDNISolone 40 mg Vial IM STA (20:12)
[2019-01-01] MEDS ORDERED: Oxycodone/Acetaminophen 5/325 mg Tab PO PRN (22:42)
--- NOTE | 2019-01-02 00:38 | PN ---
DATE: 01/01/2019 FOLLOWUP RENAL CONSULTATION LOCATION: The patient is located in [facility], room 665, bed A. REQUESTED BY: Skye Harp MD REASON FOR RENAL CONSULTATION: End-stage renal disease, bilateral knee pain, and left knee swelling. HISTORY OF PRESENT ILLNESS: Mr. Fallon is a 73-year-old very pleasant elderly very cachectic [place] male with a history of hypertension, history of gout, anemia, hyperparathyroidism, end-stage renal disease, started on hemodialysis about a month ago who was admitted with chief complaints of difficult to ambulate for the last 2 weeks and also initially with pain in the left right knee joint. The patient is complaining of pain in both knee joints and also swelling of the left knee joint. Denies any chest pain or palpitation. Denies any fever or cough. No abdominal pain. No nausea, vomiting, or diarrhea. PHYSICAL EXAMINATION: VITAL SIGNS: This afternoon, blood pressure 107/65, pulse 81, respirations 20, temperature 97.7, saturation 97%. Height 5 feet 6 inches, weight is 94 pounds. GENERAL: Mr. Fallon is a 73-year-old elderly [place] male, thin built, not in distress. HEENT: Pupils normal and reactive to light and accommodation. Conjunctivae pink. Sclerae anicteric. Tongue is moist. Trachea is midline. LUNGS: Symmetric on both sides. Bilateral breath sounds present. Clear to auscultation. CARDIOVASCULAR SYSTEM: [place] at the fifth intercostal space, midclavicular line. S1, S2 audible. No murmur or gallop. ABDOMEN: Normal in appearance, soft, tympanitic. No guarding. No rigidity. No hepatosplenomegaly. CENTRAL NERVOUS SYSTEM: The patient is alert, awake, oriented times three. Nonfocal neuro examination. Cranial nerves II through XII grossly intact. Sensory and motor system is within normal limits. EXTREMITIES: No cyanosis, no clubbing, no edema. The patient has swelling of the both knee joints, left more than the right, and also the patient has a suprapatellar effusion. CURRENT MEDICATIONS: Include as follows: Cefepime 1 g daily, Diflucan 100 mg p.o. daily, Ferrlecit 125 mg IV daily, Flomax 0.4 mg daily, Nephro-Brandy 1 tablet daily, amlodipine 5 mg p.o. daily, Procrit 10,000 units IV three times a week, Proscar 5 mg p.o. daily, Renvela 800 mg p.o. t.i.d., Tylenol 650 mg p.o. every 6 hours p.r.n, allopurinol 100 mg p.o. daily. LABORATORY DATA: Include as follows: As of 01/01/2019, WBC 9.7, hemoglobin 10, hematocrit 31.9, MCV 76.2, and platelets 240. Sodium is 133, potassium 4.1, chloride 99, CO2 of 25, BUN 70, creatinine 6, glucose 143, calcium 8.5, and phosphorus 4.5, magnesium 2.1. Total bili 0.4, AST 57, ALT 48, alkaline phosphatase 176. Total protein 5.8, albumin is 2.7. Stool for occult blood is negative as of 12/31/2018, and urine culture as of 12/28/2018, positive for Klebsiella pneumoniae and yeast, and blood culture x2 negative day 4 from 12/28/2018. IMPRESSION AND PLAN: Mr. Fallon is a 73-year-old elderly male with a history of hypertension, history of gout, anemia, secondary hyperparathyroidism, end-stage renal disease who was admitted with bilateral knee swelling and also left knee effusion, status post transfusion of 3 units of packed red blood cells on admission due to anemia with difficulty to ambulate and difficult to bend his both knees. 1. End-stage renal disease. Continue hemodialysis three times a week, Tuesday, , Tuesday. 2. Anemia, secondary to iron-deficiency anemia and also end-stage renal disease, status post transfusion. Hemoglobin and hematocrit are stable. 3. Bilateral knee joint pains with left knee effusion, rule out gout versus pseudogout. No improvement since admission. We will start him on Solu-Medrol. We will give Solu-Medrol 40 mg IV piggyback x1 dose and also Protonix 40 mg IV piggyback x1 dose, and also we will start Percocet 1 tablet every 6 hours p.r.n. for pain, awaiting for orthopedic evaluation, and possible further joint aspiration. We will follow with you. Thank you for allowing me to participate in your patient's care. Simran Bacon MD [facility] # [id number]
[2019-01-02] MEDS: Multivitamin Vitamin B Complex (Nephro-Vite) Tab PO SCH (08:36)
[2019-01-02] MEDS ORDERED: methylPREDNISolone Depo 80 mg/ml Inj IM ONE (09:14)
[2019-01-02] MEDS ORDERED: Lidocaine 0.5% PF (50 ml) Inj INJ ONE (09:14)
--- NOTE | 2019-01-02 10:21 | CP.PCM.PN ---
Subjective - Date & Time of Evaluation Date of Evaluation: 01/02/19 Time of Evaluation: 10:20 - Subjective Subjective: pt is seen and examined during hd, follow up consult is dictated #[id number] s/p iv solumedrol 40 mg x1 last night f/u with ortho Objective - Vital Signs/Intake and Output Vital Signs (last 24 hours): Temp Pulse Resp BP Pulse Ox 97.5 F L 71 18 112/68 98 01/02/19 09:30 01/02/19 09:30 01/02/19 09:30 01/02/19 10:00 01/02/19 09:30 Intake and Output: 01/02/19 01/02/19 06:59 18:59 Intake Total 160 Output Total 800 Balance -640 - Medications Medications: Current Medications Acetaminophen (Tylenol 325mg Tab) 650 mg PO Q6 PRN PRN Reason: Fever >100.4 F Last Admin: 01/01/19 06:52 Dose: 650 mg Allopurinol (Zyloprim) 100 mg PO DAILY [facility] Last Admin: 01/01/19 09:51 Dose: 100 mg Amlodipine Besylate (Norvasc) 5 mg PO DAILY [facility] Last Admin: 01/01/19 09:51 Dose: 5 mg Epoetin Gavin (Procrit) 10,000 unit IV TTS [facility] Last Admin: 12/30/18 10:24 Dose: 10,000 unit Ferric Sodium Gluconate Complex (Ferrlecit) 125 mg IVPB DAILY [facility] Stop: 01/04/19 10:01 Last Admin: 01/01/19 09:50 Dose: 125 mg Finasteride (Proscar) 5 mg PO DAILY [facility] Last Admin: 01/01/19 09:51 Dose: 5 mg Fluconazole (Diflucan) 100 mg PO DAILY [facility]; Protocol Last Admin: 01/01/19 09:51 Dose: 100 mg Cefepime HCl 1 gm/ Dextrose 50 mls @ 100 mls/hr IVPB Q24H [facility]; Protocol Last Admin: 01/02/19 00:37 Dose: 100 mls/hr Lidocaine HCl (Lidocaine Hcl 0.5% Pf 50 Ml) 50 ml INJ ONCE ONE Stop: 01/02/19 09:15 Oxycodone/Acetaminophen (Percocet 5/325 Mg Tab) 1 tab PO Q6H PRN PRN Reason: Pain, moderate (4-7) Stop: 01/04/19 22:43 Pantoprazole Sodium (Protonix Inj) 40 mg IVP DAILY [facility] Sevelamer Carbonate (Renvela) 800 mg PO TIDCC [facility] Last Admin: 01/02/19 08:36 Dose: Not Given Tamsulosin HCl (Flomax) 0.4 mg PO HS [facility] Last Admin: 01/01/19 21:42 Dose: 0.4 mg Vitamin B Complex/Vit C/Folic Acid (Nephro-Brandy) 1 tab PO 0800 [facility] Last Admin: 01/02/19 08:36 Dose: Not Given - Labs Labs: 01/01/19 07:09 01/01/19 07:09 PT 13.8 SECONDS (9.7-12.2) H 12/28/18 19:11 INR 1.3 12/28/18 19:11 APTT 36 SECONDS (21-34) H 12/28/18 19:11
[2019-01-02] MEDS ORDERED: MethylPREDNISolone 40 mg Vial IVP SCH (10:30)
[2019-01-02] MEDS: Epoetin Alfa 10,000 unit/ml Dialysis IV SCH (10:47)
[2019-01-02] MEDS: Ferric Sodium Gluconat Complex 62.5 mg/5 ml Vial IVPB SCH ×2 (10:58→11:29)
--- NOTE | 2019-01-02 11:11 | CP.PCM.CON ---
History of Present Illness - History of Present Illness History of Present Illness: Orthopedic consult: Dr. Bartlett Patient is a 73 y/o male admitted due to chest pain who is currently complaining of bilateral knee pain. Dr. Bartlett was consulted to evaluate his bilateral knee pain and effusion for possible aspiration. The patient was seen and examined while in dialysis. The patient reports a long history of gout, which has affected his knees in the past. He notes that the attacks have resolved with conservative means in the past with medications. The current pain is similar to his gouty attacks but his knee pain has significantly improved during his admission. He has been receiving anti gout medication since admission and has had solumedrol since yesterday which has significantly improved his pain. He admits that he is now able to bend his knees and lift his legs off the bed, which he could not do before. The pain is currently mild, worse in the left knee, and intermittent. The pain worsens with WB and bending and alleviates with inactivity. The mendiola is associated with swelling to the left knee. He d enies radiation of pain/numbness/tingling to LE. He currently denies CP/SOB/N/V/D/fever/dysuria/melena. PMH: HTN, ESRD on dialysis, gout PSH: denies meds: as per med rec allergy: NKDA SH: denies current tobacco/ETOH/drug use Review of Systems - Review of Systems All systems: reviewed and no additional remarkable complaints except Review of Systems: as per HPI Past Patient History - Past Medical History & Family History Past Medical History?: Yes Past Family History: Reviewed and not pertinent - Past Social History Smoking Status: Never Smoked - CARDIAC Hx Hypertension: Yes - PULMONARY Hx Respiratory Disorders: No - NEUROLOGICAL Hx Neurological Disorder: No - HEENT Hx HEENT Problems: No - RENAL Hx Chronic Kidney Disease: Yes (stage 5) Date of Last Dialysis Treatment: 12/28/18 - ENDOCRINE/METABOLIC Hx Endocrine Disorders: No - HEMATOLOGICAL/ONCOLOGICAL Hx Blood Disorders: No - INTEGUMENTARY Hx Dermatological Problems: No - MUSCULOSKELETAL/RHEUMATOLOGICAL Hx Musculoskeletal Disorders: Yes Hx Falls: No Hx Gout: Yes - GASTROINTESTINAL Hx Gastrointestinal Disorders: No - GENITOURINARY/GYNECOLOGICAL Hx Genitourinary Disorders: No - PSYCHIATRIC Hx Psychophysiologic Disorder: No Hx Substance Use: No - SURGICAL HISTORY Hx Surgeries: No - ANESTHESIA Hx Anesthesia: No Hx Anesthesia Reactions: No Hx Malignant Hyperthermia: No Meds Allergies/Adverse Reactions: Allergies Allergy/AdvReac Type Severity Reaction Status Date / Time No Known Allergies Allergy Verified 12/28/18 18:56 - Medications Medications: Current Medications Acetaminophen (Tylenol 325mg Tab) 650 mg PO Q6 PRN PRN Reason: Fever >100.4 F Last Admin: 01/01/19 06:52 Dose: 650 mg Allopurinol (Zyloprim) 100 mg PO DAILY [facility] Last Admin: 01/02/19 11:00 Dose: Not Given Amlodipine Besylate (Norvasc) 5 mg PO DAILY [facility] Last Admin: 01/02/19 10:58 Dose: Not Given Epoetin Gavin (Procrit) 10,000 unit IV TTS [facility] Last Admin: 01/02/19 10:47 Dose: 10,000 unit Ferric Sodium Gluconate Complex (Ferrlecit) 125 mg IVPB DAILY [facility] Stop: 01/04/19 10:01 Last Admin: 01/02/19 10:58 Dose: Not Given Finasteride (Proscar) 5 mg PO DAILY [facility] Last Admin: 01/02/19 10:58 Dose: Not Given Fluconazole (Diflucan) 100 mg PO DAILY [facility]; Protocol Last Admin: 01/02/19 10:58 Dose: Not Given Cefepime HCl 1 gm/ Dextrose 50 mls @ 100 mls/hr IVPB Q24H [facility]; Protocol Last Admin: 01/02/19 00:37 Dose: 100 mls/hr Lidocaine HCl (Lidocaine Hcl 0.5% Pf 50 Ml) 50 ml INJ ONCE ONE Stop: 01/02/19 09:15 Oxycodone/Acetaminophen (Percocet 5/325 Mg Tab) 1 tab PO Q6H PRN PRN Reason: Pain, moderate (4-7) Stop: 01/04/19 22:43 Pantoprazole Sodium (Protonix Inj) 40 mg IVP DAILY [facility] Last Admin: 01/02/19 10:59 Dose: Not Given Sevelamer Carbonate (Renvela) 800 mg PO TIDCC [facility] Last Admin: 01/02/19 08:36 Dose: Not Given Tamsulosin HCl (Flomax) 0.4 mg PO HS [facility] Last Admin: 01/01/19 21:42 Dose: 0.4 mg Vitamin B Complex/Vit C/Folic Acid (Nephro-Brandy) 1 tab PO 0800 [facility] Last Admin: 01/02/19 08:36 Dose: Not Given Physical Exam - Constitutional Appears: Well, No Acute Distress - Head Exam Head Exam: ATRAUMATIC, NORMOCEPHALIC - Eye Exam Eye Exam: EOMI, Normal appearance - ENT Exam ENT Exam: Mucous Membranes Moist - Respiratory Exam Respiratory Exam: NORMAL BREATHING PATTERN - Extremities Exam Additional comments: Left knee: mild to mod effusion mild anterior knee tenderness no erythema/masses/lesion ROM 0-90 deg sensation intact SP/DP/TN motor intact EHL/FHL/TA/G pedal pulses intact calf soft NT Right knee: trace effusion no anterior knee tenderness no erythema/masses/lesion ROM 0-100 deg sensation intact SP/DP/TN motor intact EHL/FHL/TA/G pedal pulses intact calf soft NT - Neurological Exam Neurological exam: Alert, Oriented x3 - Psychiatric Exam Psychiatric exam: Normal Affect, Normal Mood - Skin Skin Exam: Normal Color, Warm Results - Vital Signs Recent Vital Signs: Last Vital Signs Temp 97.5 F L 01/02/19 09:30 Pulse 71 01/02/19 09:30 Resp 18 01/02/19 09:30 BP 115/68 01/02/19 10:30 Pulse Ox 98 01/02/19 09:30 - Labs Result Diagrams: 01/01/19 07:09 01/01/19 07:09 - Impressions Impression: Accession No. : [id number] Patient Name / ID : MAHENDRA Alegria / [id number] Exam Date : 12/29/2018 11:51:25 ( Approved ) Study Comment : Sex / Age : M / 73Y Creator : Bhargavi Kennedy MD Dictator : Bhargavi Kennedy MD Supersonic Engineer : Push Bench Operator Helper : Bhargavi Kennedy MD Approver2 : Report Date : 12/29/2018 14:58:07 My Comment : Date of service: 12/29/2018 PROCEDURE: Bilateral Knee Radiographs. HISTORY: b/l knee swelling, r/o DJD, r/o effusion COMPARISON: None. FINDINGS: BONES: Bone alignment and mineralization are normal. There is no acute displaced fracture or bone destruction. There is mild tricompartmental degenerative osteoarthrosis with reduced joint spaces, marginal osteophytes and tibial spiking, worse in the medial compartme nt. SOFT TISSUES: Right Knee: Normal. Left Knee: Normal. JOINT EFFUSION: Right Knee: None. Left Knee: Small suprapatellar joint effusion. OTHER FINDINGS: None. IMPRESSION: No acute displaced fracture or dislocation. Mild lung compartmental degenerative osteoarthrosis, worse in the medial co mpartments. Small left suprapatellar joint effusion. Assessment & Plan (1) Acute gout of knee Assessment and Plan: Patient with acute gouty attack of both knees. Pain improved. -Since the patient's pain has improved and has had improved mobility, Dr. Bartlett recommends continued conservative management with anti-gout and anti-inf lammatory medication. Aspiration is not recommended at this time. -PT/OT WBAT -will follow patient -above d/w Dr. Bartlett in agreement -Consult much appreciated Status: Acute - Date & Time Date: 01/02/19 Time: 10:30
[2019-01-02 12:08] LABS: HEPATITIS B SURFACE AG Negative (NEGATIVE)
[2019-01-02 12:13] LABS: HEPATITIS B CORE AB NEGATIVE (NEGATIVE)
--- NOTE | 2019-01-02 12:22 | CP.PCM.PN ---
Subjective - Date & Time of Evaluation Date of Evaluation: 01/02/19 Time of Evaluation: 10:00 - Subjective Subjective: examined at bedside chart reviewed orders signed Objective - Vital Signs/Intake and Output Vital Signs (last 24 hours): Temp Pulse Resp BP Pulse Ox 97.5 F L 71 18 129/68 98 01/02/19 09:30 01/02/19 09:30 01/02/19 09:30 01/02/19 12:00 01/02/19 09:30 Intake and Output: 01/02/19 01/02/19 06:59 18:59 Intake Total 160 Output Total 800 Balance -640 - Medications Medications: Current Medications Acetaminophen (Tylenol 325mg Tab) 650 mg PO Q6 PRN PRN Reason: Fever >100.4 F Last Admin: 01/01/19 06:52 Dose: 650 mg Allopurinol (Zyloprim) 100 mg PO DAILY [facility] Last Admin: 01/02/19 11:00 Dose: Not Given Amlodipine Besylate (Norvasc) 5 mg PO DAILY [facility] Last Admin: 01/02/19 10:58 Dose: Not Given Epoetin Gavin (Procrit) 10,000 unit IV TTS [facility] Last Admin: 01/02/19 10:47 Dose: 10,000 unit Ferric Sodium Gluconate Complex (Ferrlecit) 125 mg IVPB DAILY [facility] Stop: 01/04/19 10:01 Last Admin: 01/02/19 11:29 Dose: 125 mg Finasteride (Proscar) 5 mg PO DAILY [facility] Last Admin: 01/02/19 10:58 Dose: Not Given Fluconazole (Diflucan) 100 mg PO DAILY [facility]; Protocol Last Admin: 01/02/19 10:58 Dose: Not Given Cefepime HCl 1 gm/ Dextrose 50 mls @ 100 mls/hr IVPB Q24H [facility]; Protocol Last Admin: 01/02/19 00:37 Dose: 100 mls/hr Lidocaine HCl (Lidocaine Hcl 0.5% Pf 50 Ml) 50 ml INJ ONCE ONE Stop: 01/02/19 09:15 Oxycodone/Acetaminophen (Percocet 5/325 Mg Tab) 1 tab PO Q6H PRN PRN Reason: Pain, moderate (4-7) Stop: 01/04/19 22:43 Pantoprazole Sodium (Protonix Inj) 40 mg IVP DAILY [facility] Last Admin: 01/02/19 10:59 Dose: Not Given Sevelamer Carbonate (Renvela) 800 mg PO TIDCC [facility] Last Admin: 01/02/19 08:36 Dose: Not Given Tamsulosin HCl (Flomax) 0.4 mg PO HS [facility] Last Admin: 01/01/19 21:42 Dose: 0.4 mg Vitamin B Complex/Vit C/Folic Acid (Nephro-Brandy) 1 tab PO 0800 [facility] Last Admin: 01/02/19 08:36 Dose: Not Given - Labs Labs: 01/01/19 07:09 01/01/19 07:09 PT 13.8 SECONDS (9.7-12.2) H 12/28/18 19:11 INR 1.3 12/28/18 19:11 APTT 36 SECONDS (21-34) H 12/28/18 19:11 - Constitutional Appears: Non-toxic, Cachectic, Chronically Ill - Head Exam Head Exam: ATRAUMATIC, NORMAL INSPECTION, NORMOCEPHALIC - Eye Exam Eye Exam: EOMI, Normal appearance, PERRL Pupil Exam: NORMAL ACCOMODATION, PERRL - ENT Exam ENT Exam: Mucous Membranes Moist, Normal Exam - Neck Exam Neck Exam: Full ROM, Normal Inspection. absent: Lymphadenopathy - Respiratory Exam Respiratory Exam: Clear to Ausculation Bilateral, NORMAL BREATHING PATTERN - Cardiovascular Exam Cardiovascular Exam: REGULAR RHYTHM, +S1, +S2. absent: Murmur - GI/Abdominal Exam GI & Abdominal Exam: Soft, Normal Bowel Sounds. absent: Tenderness - Rectal Exam Rectal Exam: Deferred - Exam Exam: NORMAL INSPECTION - Extremities Exam Extremities Exam: Full ROM, Normal Capillary Refill, Normal Inspection. absent: Joint Swelling, Pedal Edema - Back Exam Back Exam: NORMAL INSPECTION - Neurological Exam Neurological Exam: Alert, Awake, CN II-XII Intact, Normal Gait, Oriented x3 - Psychiatric Exam Psychiatric exam: Normal Affect, Normal Mood - Skin Skin Exam: Dry, Intact, Normal Color, Warm Assessment and Plan (1) Anemia in CKD (chronic kidney disease) Status: Acute (2) Leukocytosis Status: Acute (3) ESRD (end stage renal disease) Status: Chronic (4) Chronic kidney disease-mineral and bone disorder Status: Acute (5) Enlarged prostate with urinary retention Status: Acute (6) Fever Status: Acute (7) Gout Status: Acute (8) BPH (benign prostatic hyperplasia) Status: Chronic (9) Hypertensive CKD, ESRD on dialysis Status: Chronic - Assessment and Plan (Free Text) Assessment: IV rx renewed for Rx of UTI
--- NOTE | 2019-01-03 03:23 | PN ---
DATE: 01/02/2019 FOLLOWUP RENAL CONSULTATION LOCATION: The patient is located in [facility], room 665, bed A. REQUESTED BY: Skye Harp MD REASON FOR FOLLOWUP: End-stage renal disease, for continuation of hemodialysis and bilateral knee swelling and pain. SUBJECTIVE: Mr. Fallon is a 73-year-old elderly [place] male, very cachectic, thin built male with a history of hypertension, gout, end-stage renal disease, anemia, secondary hyperparathyroidism, who was started on hemodialysis, recently admitted with chief complaints of bilateral knee pain and difficult to ambulate and also left knee swelling and elevated WBC count. The patient was seen and examined during hemodialysis. The patient is feeling slightly better after the one dose of Solu-Medrol last night, slightly able to bend his both knees this morning. No chest pain. No palpitation. No fever. No cough. No abdominal pain. No nausea, vomiting, or diarrhea. OBJECTIVE: VITAL SIGNS: This morning as follows: Blood pressure 116/76, pulse 67, respirations about 20, temperature 97.4, saturating 98%. Height 5 feet 6 inches, weight is 94 pounds. GENERAL: Mr. Fallon is a 73-year-old elderly [place] male, thin built, and not in distress. HEENT: Pupils normal and reactive to light and accommodation. Conjunctivae pink. Sclerae anicteric. Tongue is moist. Trachea is midline. LUNGS: Symmetric on both sides. Bilateral breath sounds present. Clear to auscultation. CARDIOVASCULAR SYSTEM: [place] at the fifth intercostal space, midclavicular line. S1 and S2 audible. No murmur or gallop. ABDOMEN: Normal in appearance, soft, tympanitic. No guarding. No rigidity. No hepatosplenomegaly. CENTRAL NERVOUS SYSTEM: The patient is alert, awake, and oriented x3. NEUROLOGICAL: Nonfocal neuro examination. Cranial nerves II through XII grossly intact. Sensory and motor system is within normal limits. EXTREMITIES: No cyanosis, no clubbing, no edema. The patient has swelling of the both knees, left more than the right, and also the patient has a small effusion of the left suprapatellar region. The patient is able to bend his both knees slightly about 10 to 15 degrees. CURRENT MEDICATIONS: Include as follows: Cefepime 1 g every 24 hours, Diflucan 100 mg p.o. daily, Ferrlecit 125 mg IV daily, Flomax 0.4 mg p.o. at bedtime, Nephro-Brandy one tablet daily, amlodipine 5 mg p.o. daily, Percocet one tablet every 6 hours p.r.n., Procrit 10,000 units three times a week, Proscar 5 mg p.o. daily, Protonix 40 mg IV daily, Renvela 800 mg p.o. t.i.d., Tylenol, allopurinol 100 mg p.o. daily, and also the patient was given Solu-Medrol 80 mg IM x1. LABORATORY DATA: No new labs available for today, and as of 01/02/2019, hepatitis B surface antibody is negative, core antibody is negative, and influenza A and B antibody was also negative. As of 01/01/2019, H and H 10 and 31.9 and BUN and creatinine 70 and 6, potassium 4.1. IMPRESSION AND PLAN: In summary, Mr. Fallon is a 73-year-old elderly male, thin built with hypertension, gout, anemia, secondary hyperparathyroidism, end-stage renal disease, on hemodialysis three times a week Tuesday, , Tuesday who was admitted with bilateral knee swelling, pain and difficult to ambulate, left more than the right. 1. End-stage renal disease. Continue hemodialysis three times a week Tuesday, , Tuesday. 2. Anemia secondary to renal failure and iron deficiency. Continue Epogen and continue IV Ferrlecit. 3. Gout versus pseudogout, continue allopurinol. 4. Bilateral knee pain and left knee swelling with mild effusion, follow with orthopedic surgery for possible joint aspiration, to rule out gout versus pseudogout, and continue Solu-Medrol as per the Orthopedic Surgery. Case discussed with Dr. Skinner in rounds. The patient was seen and examined during dialysis. Thank you for allowing me to participate in your patient's care. Simran Bacon MD
[2019-01-03] MEDS ORDERED: Lidocaine 1% Inj (20ml) INFIL PRN (08:47)
[2019-01-03] MEDS: Multivitamin Vitamin B Complex (Nephro-Vite) Tab PO SCH (09:58)
[2019-01-03] MEDS: Pantoprazole 40 mg EC Tab PO SCH (09:58)
[2019-01-03] MEDS: Ferric Sodium Gluconat Complex 62.5 mg/5 ml Vial IVPB SCH (12:14)
--- NOTE | 2019-01-03 18:15 | CP.PCM.PN ---
Subjective - Date & Time of Evaluation Date of Evaluation: 01/03/19 Time of Evaluation: 18:14 - Subjective Subjective: pt is seen and examined, follow up consult is dictated #[id number] will start solumedrol 40 mg q 12 ivpb Objective - Vital Signs/Intake and Output Vital Signs (last 24 hours): Temp Pulse Resp BP Pulse Ox 97.6 F 87 20 118/70 96 01/03/19 07:25 01/03/19 07:25 01/03/19 07:25 01/03/19 07:25 01/03/19 07:25 Intake and Output: 01/03/19 01/03/19 06:59 18:59 Intake Total 170 400 Output Total 375 300 Balance -205 100 - Medications Medications: Current Medications Acetaminophen (Tylenol 325mg Tab) 650 mg PO Q6 PRN PRN Reason: Fever >100.4 F Last Admin: 01/01/19 06:52 Dose: 650 mg Allopurinol (Zyloprim) 100 mg PO DAILY [facility] Last Admin: 01/03/19 09:58 Dose: 100 mg Amlodipine Besylate (Norvasc) 5 mg PO DAILY [facility] Last Admin: 01/03/19 09:59 Dose: 5 mg Epoetin Gavin (Procrit) 10,000 unit IV TTS [facility] Last Admin: 01/02/19 10:47 Dose: 10,000 unit Ferric Sodium Gluconate Complex (Ferrlecit) 125 mg IVPB DAILY [facility] Stop: 01/04/19 10:01 Last Admin: 01/03/19 12:14 Dose: 125 mg Finasteride (Proscar) 5 mg PO DAILY [facility] Last Admin: 01/03/19 09:59 Dose: 5 mg Fluconazole (Diflucan) 100 mg PO DAILY [facility]; Protocol Last Admin: 01/03/19 09:59 Dose: 100 mg Cefepime HCl 1 gm/ Dextrose 50 mls @ 100 mls/hr IVPB Q24H [facility]; Protocol Last Admin: 01/03/19 01:24 Dose: 100 mls/hr Ibuprofen (Motrin Tab) 600 mg PO BID [facility] Last Admin: 01/03/19 17:40 Dose: 600 mg Lidocaine HCl (Lidocaine 1%) 20 ml INFIL PRN PRN PRN Reason: To be administered by Dr Bartlett. Methylprednisolone (Solu-Medrol) 40 mg IV Q12 [facility] Oxycodone/Acetaminophen (Percocet 5/325 Mg Tab) 1 tab PO Q6H PRN PRN Reason: Pain, moderate (4-7) Stop: 01/04/19 22:43 Pantoprazole Sodium (Protonix Ec Tab) 40 mg PO Q24H [facility] Last Admin: 01/03/19 09:58 Dose: 40 mg Sevelamer Carbonate (Renvela) 800 mg PO TIDCC [facility] Last Admin: 01/03/19 17:40 Dose: 800 mg Tamsulosin HCl (Flomax) 0.4 mg PO HS [facility] Last Admin: 01/02/19 21:07 Dose: 0.4 mg Vitamin B Complex/Vit C/Folic Acid (Nephro-Brandy) 1 tab PO 0800 [facility] Last Admin: 01/03/19 09:58 Dose: 1 tab - Labs Labs: 01/01/19 07:09 01/01/19 07:09 PT 13.8 SECONDS (9.7-12.2) H 12/28/18 19:11 INR 1.3 12/28/18 19:11 APTT 36 SECONDS (21-34) H 12/28/18 19:11
--- NOTE | 2019-01-03 18:23 | CP.PCM.PN ---
Subjective - Date & Time of Evaluation Date of Evaluation: 01/03/19 Time of Evaluation: 10:00 - Subjective Subjective: improving denies fever or chills Objective - Vital Signs/Intake and Output Vital Signs (last 24 hours): Temp Pulse Resp BP Pulse Ox 97.6 F 87 20 118/70 96 01/03/19 07:25 01/03/19 07:25 01/03/19 07:25 01/03/19 07:25 01/03/19 07:25 Intake and Output: 01/03/19 01/03/19 06:59 18:59 Intake Total 170 400 Output Total 375 300 Balance -205 100 - Medications Medications: Current Medications Acetaminophen (Tylenol 325mg Tab) 650 mg PO Q6 PRN PRN Reason: Fever >100.4 F Last Admin: 01/01/19 06:52 Dose: 650 mg Allopurinol (Zyloprim) 100 mg PO DAILY [facility] Last Admin: 01/03/19 09:58 Dose: 100 mg Amlodipine Besylate (Norvasc) 5 mg PO DAILY [facility] Last Admin: 01/03/19 09:59 Dose: 5 mg Epoetin Gavin (Procrit) 10,000 unit IV TTS [facility] Last Admin: 01/02/19 10:47 Dose: 10,000 unit Ferric Sodium Gluconate Complex (Ferrlecit) 125 mg IVPB DAILY [facility] Stop: 01/04/19 10:01 Last Admin: 01/03/19 12:14 Dose: 125 mg Finasteride (Proscar) 5 mg PO DAILY [facility] Last Admin: 01/03/19 09:59 Dose: 5 mg Fluconazole (Diflucan) 100 mg PO DAILY [facility]; Protocol Last Admin: 01/03/19 09:59 Dose: 100 mg Cefepime HCl 1 gm/ Dextrose 50 mls @ 100 mls/hr IVPB Q24H [facility]; Protocol Last Admin: 01/03/19 01:24 Dose: 100 mls/hr Ibuprofen (Motrin Tab) 600 mg PO BID [facility] Last Admin: 01/03/19 17:40 Dose: 600 mg Lidocaine HCl (Lidocaine 1%) 20 ml INFIL PRN PRN PRN Reason: To be administered by Dr Bartlett. Methylprednisolone (Solu-Medrol) 40 mg IV Q12 [facility] Oxycodone/Acetaminophen (Percocet 5/325 Mg Tab) 1 tab PO Q6H PRN PRN Reason: Pain, moderate (4-7) Stop: 01/04/19 22:43 Pantoprazole Sodium (Protonix Ec Tab) 40 mg PO Q24H [facility] Last Admin: 01/03/19 09:58 Dose: 40 mg Sevelamer Carbonate (Renvela) 800 mg PO TIDCC [facility] Last Admin: 01/03/19 17:40 Dose: 800 mg Tamsulosin HCl (Flomax) 0.4 mg PO HS [facility] Last Admin: 01/02/19 21:07 Dose: 0.4 mg Vitamin B Complex/Vit C/Folic Acid (Nephro-Brandy) 1 tab PO 0800 [facility] Last Admin: 01/03/19 09:58 Dose: 1 tab - Labs Labs: 01/01/19 07:09 01/01/19 07:09 PT 13.8 SECONDS (9.7-12.2) H 12/28/18 19:11 INR 1.3 12/28/18 19:11 APTT 36 SECONDS (21-34) H 12/28/18 19:11 - Constitutional Appears: Non-toxic, Cachectic, Chronically Ill - Head Exam Head Exam: ATRAUMATIC, NORMAL INSPECTION, NORMOCEPHALIC - Eye Exam Eye Exam: EOMI, Normal appearance, PERRL Pupil Exam: NORMAL ACCOMODATION, PERRL - ENT Exam ENT Exam: Mucous Membranes Moist, Normal Exam - Neck Exam Neck Exam: Full ROM, Normal Inspection. absent: Lymphadenopathy - Respiratory Exam Respiratory Exam: Clear to Ausculation Bilateral, NORMAL BREATHING PATTERN - Cardiovascular Exam Cardiovascular Exam: REGULAR RHYTHM, +S1, +S2. absent: Murmur - GI/Abdominal Exam GI & Abdominal Exam: Soft, Normal Bowel Sounds. absent: Tenderness - Rectal Exam Rectal Exam: Deferred - Exam Exam: NORMAL INSPECTION - Extremities Exam Extremities Exam: Full ROM, Normal Capillary Refill, Normal Inspection. absent: Joint Swelling, Pedal Edema - Back Exam Back Exam: NORMAL INSPECTION - Neurological Exam Neurological Exam: Alert, Awake, CN II-XII Intact, Normal Gait, Oriented x3 - Psychiatric Exam Psychiatric exam: Normal Affect, Normal Mood - Skin Skin Exam: Dry, Intact, Normal Color, Warm Assessment and Plan (1) Anemia in CKD (chronic kidney disease) Status: Acute (2) Leukocytosis Status: Acute (3) ESRD (end stage renal disease) Status: Chronic (4) Chronic kidney disease-mineral and bone disorder Status: Acute (5) Enlarged prostate with urinary retention Status: Acute (6) Fever Status: Acute (7) Gout Status: Acute (8) BPH (benign prostatic hyperplasia) Status: Chronic (9) Hypertensive CKD, ESRD on dialysis Status: Chronic - Assessment and Plan (Free Text) Assessment: cont rx as out pt
--- NOTE | 2019-01-03 22:13 | CON ---
DATE: 01/03/2019 HISTORY OF PRESENT ILLNESS: The patient was admitted by Dr. Harp with diagnoses of palpitations and bilateral knee pain. The patient is a known case of renal dialysis, and he is under the care of Dr. Bacon. Currently, he is admitted for chest pain. He is also complaining of bilateral knee pain and swelling. He gives previous history of gout. He was placed on dialysis and he was also given Solu-Medrol. Since Solu-Medrol was given, the swelling of both his knees have subsided significantly. PHYSICAL EXAMINATION: GENERAL: Revealed a 73-year-old male who did not appear to be in acute distress. MUSCULOSKELETAL: No significant swelling of both knees is noted. He can do a straight leg raise against resistance. He can flex up to 115 degrees. Minimal tenderness noted over the medial joint line and medial facet of the patella. Patellofemoral crepitus and tenderness noted. No evidence of a ligamentous laxity noted. DIAGNOSTIC DATA: X-rays of both knees reveal moderate tricompartmental arthritis with narrowing of the medial compartment with minimal patellofemoral changes. DIAGNOSES: 1. Osteoarthritis of both knees. 2. Gouty arthritis. PLAN: At this time, the patient has no significant swelling and I do not see any need to aspirate. If he has reoccurrence of swelling and effusion, we will consider aspiration and sending the fluid for testing. Anette Bartlett MD
[2019-01-03] MEDS: MethylPREDNISolone 40 mg Vial IV SCH (22:27)
--- NOTE | 2019-01-04 00:30 | PN ---
DATE: 01/03/2019 FOLLOWUP RENAL CONSULTATION LOCATION: The patient is located in room 665, bed A. REQUESTED BY: Skye Harp MD REASON FOR FOLLOWUP: End-stage renal disease, continuation of hemodialysis. HISTORY OF PRESENT ILLNESS: Mr. Fallon is a 73-year-old elderly very thin built [place] male with a history of longstanding hypertension, gout, end-stage renal disease, anemia, secondary hyperparathyroidism who was admitted with chief complaints of bilateral knee joint pain and swelling, left more than the right, and difficult to ambulate. The patient was given one dose of Solu-Medrol on 01/01/2019 with slight improvement of the joint pains, is able to bend his both knees slightly today. The patient was seen by Orthopedic Surgery, Dr. Bartlett, and recommending to follow up as an outpatient once discharged. The patient is not in acute distress. Denies any chest pain or palpitation. Denies any fever. Denies any cough. No abdominal pain. No nausea, vomiting, or diarrhea. PHYSICAL EXAMINATION: VITAL SIGNS: As follows: Blood pressure 110/71, pulse 72, respirations 20, temperature 98.3, saturation 96%. Height 5 feet 6 inches, weight is 94 pounds. GENERAL: Mr. Fallon is a 73-year-old elderly [place] male, thin built, not in distress. HEENT: Pupils normal and reactive to light and accommodation. Conjunctiva pink. Sclerae anicteric. Tongue is moist. Trachea is midline. LUNGS: Symmetric on both sides. Bilateral breath sounds present. Clear to auscultation. CARDIOVASCULAR SYSTEM: [place] at the fifth intercostal space, midclavicular line. S1, S2 audible. No murmur or gallop. ABDOMEN: Normal in appearance. Soft, tympanitic. No guarding. No rigidity. No hepatosplenomegaly. CENTRAL NERVOUS SYSTEM: The patient is alert, awake, oriented x3. Nonfocal neuro examination. Cranial nerves II through XII grossly intact. Sensory and motor system is within normal limits. EXTREMITIES: No cyanosis, no clubbing, no edema. The patient also has bilateral knee swelling, left more than the right and moderate tenderness in both knees. MEDICATIONS: His current medications include as follows: Cefepime 1 g every 24 hours, Diflucan 100 mg p.o. daily, Ferrlecit 125 mg IV daily, Flomax 0.4 mg p.o. at bedtime, lidocaine, ibuprofen 600 mg p.o. b.i.d., Nephro-Brandy 1 tablet p.o., Norvasc 5 mg p.o. daily, Percocet 1 tablet p.o. every 6 hours p.r.n., Procrit 10,000 units IV three times a week, Proscar 5 mg p.o. daily, Protonix 40 mg p.o. daily, Renvela 800 mg p.o. t.i.d., Solu-Medrol 40 mg IV every 12 hours, Tylenol 650 mg p.o. every 6 hours p.r.n., allopurinol 100 mg p.o. daily. LABORATORY DATA: No new labs available for today. As of 01/01/2019, H and H 10/31.9 and BUN and creatinine 70/6. IMPRESSION AND PLAN: In summary, Mr. Fallon is a 73-year-old elderly [place] male with history of hypertension, gout, anemia, secondary hyperparathyroidism, end-stage renal disease, on hemodialysis three times a week, Tuesday, , Tuesday who was admitted with bilateral knee swelling and pain and difficult to ambulate and the left knee swelling is more than the right and also with small suprapatellar effusion. 1. End-stage renal disease. Continue hemodialysis three times a week; Tuesday, , and Tuesday. 2. Bilateral knee swelling. Rule out gout versus pseudogout. The patient has a slight improvement with IV Solu-Medrol. We will continue IV Solu-Medrol 40 mg every 12 hours and also continue analgesics as needed. 3. Anemia secondary to renal failure and iron deficiency. Continue intravenous iron and Procrit. Continue Renvela. Continue allopurinol. We will follow with you. Thank you for allowing me to participate in your patient's care Simran Bacon MD
--- NOTE | 2019-01-04 06:53 | CP.PCM.PN ---
Subjective - Date & Time of Evaluation Date of Evaluation: 01/03/19 Time of Evaluation: 07:30 - Subjective Subjective: less pain in the knee ambulating with assistance no sob Objective - Vital Signs/Intake and Output Vital Signs (last 24 hours): Temp Pulse Resp BP Pulse Ox 97.9 F 61 20 112/72 96 01/04/19 00:30 01/04/19 00:30 01/04/19 00:30 01/04/19 00:30 01/04/19 00:30 Intake and Output: 01/03/19 01/04/19 18:59 06:59 Intake Total 400 Output Total 300 200 Balance 100 -200 - Medications Medications: Current Medications Acetaminophen (Tylenol 325mg Tab) 650 mg PO Q6 PRN PRN Reason: Fever >100.4 F Last Admin: 01/01/19 06:52 Dose: 650 mg Allopurinol (Zyloprim) 100 mg PO DAILY [facility] Last Admin: 01/03/19 09:58 Dose: 100 mg Amlodipine Besylate (Norvasc) 5 mg PO DAILY [facility] Last Admin: 01/03/19 09:59 Dose: 5 mg Epoetin Gavin (Procrit) 10,000 unit IV TTS [facility] Last Admin: 01/02/19 10:47 Dose: 10,000 unit Ferric Sodium Gluconate Complex (Ferrlecit) 125 mg IVPB DAILY [facility] Stop: 01/04/19 10:01 Last Admin: 01/03/19 12:14 Dose: 125 mg Finasteride (Proscar) 5 mg PO DAILY [facility] Last Admin: 01/03/19 09:59 Dose: 5 mg Fluconazole (Diflucan) 100 mg PO DAILY [facility]; Protocol Last Admin: 01/03/19 09:59 Dose: 100 mg Cefepime HCl 1 gm/ Dextrose 50 mls @ 100 mls/hr IVPB Q24H [facility]; Protocol Last Admin: 01/04/19 01:14 Dose: 100 mls/hr Ibuprofen (Motrin Tab) 600 mg PO BID [facility] Last Admin: 01/03/19 17:40 Dose: 600 mg Lidocaine HCl (Lidocaine 1%) 20 ml INFIL PRN PRN PRN Reason: To be administered by Dr Bartlett. Methylprednisolone (Solu-Medrol) 40 mg IV Q12 [facility] Last Admin: 01/03/19 22:27 Dose: 40 mg Oxycodone/Acetaminophen (Percocet 5/325 Mg Tab) 1 tab PO Q6H PRN PRN Reason: Pain, moderate (4-7) Stop: 01/04/19 22:43 Pantoprazole Sodium (Protonix Ec Tab) 40 mg PO Q24H [facility] Last Admin: 01/03/19 09:58 Dose: 40 mg Sevelamer Carbonate (Renvela) 800 mg PO TIDCC [facility] Last Admin: 01/03/19 17:40 Dose: 800 mg Tamsulosin HCl (Flomax) 0.4 mg PO HS [facility] Last Admin: 01/03/19 22:27 Dose: 0.4 mg Vitamin B Complex/Vit C/Folic Acid (Nephro-Brandy) 1 tab PO 0800 [facility] Last Admin: 01/03/19 09:58 Dose: 1 tab - Labs Labs: 01/01/19 07:09 01/01/19 07:09 PT 13.8 SECONDS (9.7-12.2) H 12/28/18 19:11 INR 1.3 12/28/18 19:11 APTT 36 SECONDS (21-34) H 12/28/18 19:11 - Constitutional Appears: Non-toxic - Head Exam Head Exam: NORMAL INSPECTION - Eye Exam Eye Exam: absent: Scleral icterus - Neck Exam Neck Exam: Full ROM - Respiratory Exam Respiratory Exam: Decreased Breath Sounds - Cardiovascular Exam Cardiovascular Exam: REGULAR RHYTHM - GI/Abdominal Exam GI & Abdominal Exam: Soft - Extremities Exam Extremities Exam: absent: Pedal Edema - Neurological Exam Neurological Exam: Alert, Oriented x3 Assessment and Plan - Assessment and Plan (Free Text) Assessment: Bilateral knee pain ESRD HTN Plan: Ortho to eval patient Cont pain meds dialysis
--- NOTE | 2019-01-04 06:58 | CP.PCM.PN ---
Subjective - Subjective Subjective: c/o severe knee pain septic arthritis being worked-up Objective - Vital Signs/Intake and Output Vital Signs (last 24 hours): Temp Pulse Resp BP Pulse Ox 97.9 F 61 20 112/72 96 01/04/19 00:30 01/04/19 00:30 01/04/19 00:30 01/04/19 00:30 01/04/19 00:30 Intake and Output: 01/03/19 01/04/19 18:59 06:59 Intake Total 400 Output Total 300 200 Balance 100 -200 - Medications Medications: Current Medications Acetaminophen (Tylenol 325mg Tab) 650 mg PO Q6 PRN PRN Reason: Fever >100.4 F Last Admin: 01/01/19 06:52 Dose: 650 mg Allopurinol (Zyloprim) 100 mg PO DAILY [facility] Last Admin: 01/03/19 09:58 Dose: 100 mg Amlodipine Besylate (Norvasc) 5 mg PO DAILY [facility] Last Admin: 01/03/19 09:59 Dose: 5 mg Epoetin Gavin (Procrit) 10,000 unit IV TTS [facility] Last Admin: 01/02/19 10:47 Dose: 10,000 unit Ferric Sodium Gluconate Complex (Ferrlecit) 125 mg IVPB DAILY [facility] Stop: 01/04/19 10:01 Last Admin: 01/03/19 12:14 Dose: 125 mg Finasteride (Proscar) 5 mg PO DAILY [facility] Last Admin: 01/03/19 09:59 Dose: 5 mg Fluconazole (Diflucan) 100 mg PO DAILY [facility]; Protocol Last Admin: 01/03/19 09:59 Dose: 100 mg Cefepime HCl 1 gm/ Dextrose 50 mls @ 100 mls/hr IVPB Q24H [facility]; Protocol Last Admin: 01/04/19 01:14 Dose: 100 mls/hr Ibuprofen (Motrin Tab) 600 mg PO BID [facility] Last Admin: 01/03/19 17:40 Dose: 600 mg Lidocaine HCl (Lidocaine 1%) 20 ml INFIL PRN PRN PRN Reason: To be administered by Dr Bartlett. Methylprednisolone (Solu-Medrol) 40 mg IV Q12 [facility] Last Admin: 01/03/19 22:27 Dose: 40 mg Oxycodone/Acetaminophen (Percocet 5/325 Mg Tab) 1 tab PO Q6H PRN PRN Reason: Pain, moderate (4-7) Stop: 01/04/19 22:43 Pantoprazole Sodium (Protonix Ec Tab) 40 mg PO Q24H [facility] Last Admin: 01/03/19 09:58 Dose: 40 mg Sevelamer Carbonate (Renvela) 800 mg PO TIDCC [facility] Last Admin: 01/03/19 17:40 Dose: 800 mg Tamsulosin HCl (Flomax) 0.4 mg PO HS [facility] Last Admin: 01/03/19 22:27 Dose: 0.4 mg Vitamin B Complex/Vit C/Folic Acid (Nephro-Brandy) 1 tab PO 0800 [facility] Last Admin: 01/03/19 09:58 Dose: 1 tab - Labs Labs: 01/01/19 07:09 01/01/19 07:09 PT 13.8 SECONDS (9.7-12.2) H 12/28/18 19:11 INR 1.3 12/28/18 19:11 APTT 36 SECONDS (21-34) H 12/28/18 19:11 - Constitutional Appears: Non-toxic - Eye Exam Eye Exam: absent: Scleral icterus - Neck Exam Neck Exam: Full ROM - Respiratory Exam Respiratory Exam: NORMAL BREATHING PATTERN - Cardiovascular Exam Cardiovascular Exam: REGULAR RHYTHM - GI/Abdominal Exam GI & Abdominal Exam: Soft - Extremities Exam Extremities Exam: absent: Pedal Edema Additional comments: +bilateral knee pain - Neurological Exam Neurological Exam: Alert Assessment and Plan - Assessment and Plan (Free Text) Assessment: recurrent UTI r/o sepsis Bilateral knee pain acute gouty arthritis ESRD on HD Plan: ID/Renal follow up cont dialysis
--- NOTE | 2019-01-04 07:04 | CP.PCM.PN ---
Subjective - Date & Time of Evaluation Date of Evaluation: 01/01/19 Time of Evaluation: 08:00 - Subjective Subjective: still with bilateral knee pain on steroids, NSAIDS, Percocet, allopurinol awaiting ortho Objective - Vital Signs/Intake and Output Vital Signs (last 24 hours): Temp Pulse Resp BP Pulse Ox 97.9 F 61 20 112/72 96 01/04/19 00:30 01/04/19 00:30 01/04/19 00:30 01/04/19 00:30 01/04/19 00:30 Intake and Output: 01/04/19 01/04/19 06:59 18:59 Output Total 200 Balance -200 - Medications Medications: Current Medications Acetaminophen (Tylenol 325mg Tab) 650 mg PO Q6 PRN PRN Reason: Fever >100.4 F Last Admin: 01/01/19 06:52 Dose: 650 mg Allopurinol (Zyloprim) 100 mg PO DAILY [facility] Last Admin: 01/03/19 09:58 Dose: 100 mg Amlodipine Besylate (Norvasc) 5 mg PO DAILY [facility] Last Admin: 01/03/19 09:59 Dose: 5 mg Epoetin Gavin (Procrit) 10,000 unit IV TTS [facility] Last Admin: 01/02/19 10:47 Dose: 10,000 unit Ferric Sodium Gluconate Complex (Ferrlecit) 125 mg IVPB DAILY [facility] Stop: 01/04/19 10:01 Last Admin: 01/03/19 12:14 Dose: 125 mg Finasteride (Proscar) 5 mg PO DAILY [facility] Last Admin: 01/03/19 09:59 Dose: 5 mg Fluconazole (Diflucan) 100 mg PO DAILY [facility]; Protocol Last Admin: 01/03/19 09:59 Dose: 100 mg Cefepime HCl 1 gm/ Dextrose 50 mls @ 100 mls/hr IVPB Q24H [facility]; Protocol Last Admin: 01/04/19 01:14 Dose: 100 mls/hr Ibuprofen (Motrin Tab) 600 mg PO BID [facility] Last Admin: 01/03/19 17:40 Dose: 600 mg Lidocaine HCl (Lidocaine 1%) 20 ml INFIL PRN PRN PRN Reason: To be administered by Dr Bartlett. Methylprednisolone (Solu-Medrol) 40 mg IV Q12 [facility] Last Admin: 01/03/19 22:27 Dose: 40 mg Oxycodone/Acetaminophen (Percocet 5/325 Mg Tab) 1 tab PO Q6H PRN PRN Reason: Pain, moderate (4-7) Stop: 01/04/19 22:43 Pantoprazole Sodium (Protonix Ec Tab) 40 mg PO Q24H [facility] Last Admin: 01/03/19 09:58 Dose: 40 mg Sevelamer Carbonate (Renvela) 800 mg PO TIDCC [facility] Last Admin: 01/03/19 17:40 Dose: 800 mg Tamsulosin HCl (Flomax) 0.4 mg PO HS [facility] Last Admin: 01/03/19 22:27 Dose: 0.4 mg Vitamin B Complex/Vit C/Folic Acid (Nephro-Brandy) 1 tab PO 0800 [facility] Last Admin: 01/03/19 09:58 Dose: 1 tab - Labs Labs: 01/01/19 07:09 01/01/19 07:09 PT 13.8 SECONDS (9.7-12.2) H 12/28/18 19:11 INR 1.3 12/28/18 19:11 APTT 36 SECONDS (21-34) H 12/28/18 19:11 - Constitutional Appears: Non-toxic, Chronically Ill - Eye Exam Eye Exam: absent: Scleral icterus - Neck Exam Neck Exam: Full ROM - Respiratory Exam Respiratory Exam: Clear to Ausculation Bilateral - Cardiovascular Exam Cardiovascular Exam: REGULAR RHYTHM - GI/Abdominal Exam GI & Abdominal Exam: Soft - Extremities Exam Extremities Exam: absent: Pedal Edema - Neurological Exam Neurological Exam: Alert, Altered, Oriented x3 Assessment and Plan - Assessment and Plan (Free Text) Assessment: Gout Osteoarthritis ESRD HTN ANemia Plan: Ortho eval HD Pain meds
--- NOTE | 2019-01-04 07:11 | CP.PCM.PN ---
Subjective - Date & Time of Evaluation Date of Evaluation: 01/01/19 Time of Evaluation: 08:00 - Subjective Subjective: less knee pain no fever no leukocytosis Objective - Vital Signs/Intake and Output Vital Signs (last 24 hours): Temp Pulse Resp BP Pulse Ox 97.9 F 61 20 112/72 96 01/04/19 00:30 01/04/19 00:30 01/04/19 00:30 01/04/19 00:30 01/04/19 00:30 Intake and Output: 01/04/19 01/04/19 06:59 18:59 Intake Total 170 Output Total 675 Balance -505 - Medications Medications: Current Medications Acetaminophen (Tylenol 325mg Tab) 650 mg PO Q6 PRN PRN Reason: Fever >100.4 F Last Admin: 01/01/19 06:52 Dose: 650 mg Allopurinol (Zyloprim) 100 mg PO DAILY [facility] Last Admin: 01/03/19 09:58 Dose: 100 mg Amlodipine Besylate (Norvasc) 5 mg PO DAILY [facility] Last Admin: 01/03/19 09:59 Dose: 5 mg Colchicine (Colocrys) 0.6 mg PO DAILY [facility] Epoetin Gavin (Procrit) 10,000 unit IV TTS [facility] Last Admin: 01/02/19 10:47 Dose: 10,000 unit Ferric Sodium Gluconate Complex (Ferrlecit) 125 mg IVPB DAILY [facility] Stop: 01/04/19 10:01 Last Admin: 01/03/19 12:14 Dose: 125 mg Finasteride (Proscar) 5 mg PO DAILY [facility] Last Admin: 01/03/19 09:59 Dose: 5 mg Fluconazole (Diflucan) 100 mg PO DAILY [facility]; Protocol Last Admin: 01/03/19 09:59 Dose: 100 mg Cefepime HCl 1 gm/ Dextrose 50 mls @ 100 mls/hr IVPB Q24H [facility]; Protocol Last Admin: 01/04/19 01:14 Dose: 100 mls/hr Ibuprofen (Motrin Tab) 600 mg PO BID [facility] Last Admin: 01/03/19 17:40 Dose: 600 mg Lidocaine HCl (Lidocaine 1%) 20 ml INFIL PRN PRN PRN Reason: To be administered by Dr Bartlett. Methylprednisolone (Solu-Medrol) 40 mg IV Q12 [facility] Last Admin: 01/03/19 22:27 Dose: 40 mg Oxycodone/Acetaminophen (Percocet 5/325 Mg Tab) 1 tab PO Q6H PRN PRN Reason: Pain, moderate (4-7) Stop: 01/04/19 22:43 Pantoprazole Sodium (Protonix Ec Tab) 40 mg PO Q24H [facility] Last Admin: 01/03/19 09:58 Dose: 40 mg Sevelamer Carbonate (Renvela) 800 mg PO TIDCC [facility] Last Admin: 01/03/19 17:40 Dose: 800 mg Tamsulosin HCl (Flomax) 0.4 mg PO HS [facility] Last Admin: 01/03/19 22:27 Dose: 0.4 mg Vitamin B Complex/Vit C/Folic Acid (Nephro-Brandy) 1 tab PO 0800 [facility] Last Admin: 01/03/19 09:58 Dose: 1 tab - Labs Labs: 01/01/19 07:09 01/01/19 07:09 PT 13.8 SECONDS (9.7-12.2) H 12/28/18 19:11 INR 1.3 12/28/18 19:11 APTT 36 SECONDS (21-34) H 12/28/18 19:11 - Constitutional Appears: Non-toxic - Eye Exam Eye Exam: absent: Scleral icterus - Neck Exam Neck Exam: Full ROM - Respiratory Exam Respiratory Exam: NORMAL BREATHING PATTERN - Cardiovascular Exam Cardiovascular Exam: REGULAR RHYTHM - GI/Abdominal Exam GI & Abdominal Exam: Soft - Extremities Exam Extremities Exam: absent: Pedal Edema - Neurological Exam Neurological Exam: Alert, Oriented x3 Assessment and Plan - Assessment and Plan (Free Text) Assessment: Gout Anemia ESRD HTN Osteoarthritis Plan: HD Cont ABTX as per ID PTx Pain meds ID/Renal follow up Ortho eval
--- NOTE | 2019-01-04 07:16 | CP.PCM.PN ---
Subjective - Date & Time of Evaluation Date of Evaluation: 01/02/19 Time of Evaluation: 07:30 - Subjective Subjective: Awaiting ortho eval still with bilateral knee pain Objective - Vital Signs/Intake and Output Vital Signs (last 24 hours): Temp Pulse Resp BP Pulse Ox 97.9 F 61 20 112/72 96 01/04/19 00:30 01/04/19 00:30 01/04/19 00:30 01/04/19 00:30 01/04/19 00:30 Intake and Output: 01/04/19 01/04/19 06:59 18:59 Intake Total 170 Output Total 675 Balance -505 - Medications Medications: Current Medications Acetaminophen (Tylenol 325mg Tab) 650 mg PO Q6 PRN PRN Reason: Fever >100.4 F Last Admin: 01/01/19 06:52 Dose: 650 mg Allopurinol (Zyloprim) 100 mg PO DAILY [facility] Last Admin: 01/03/19 09:58 Dose: 100 mg Amlodipine Besylate (Norvasc) 5 mg PO DAILY [facility] Last Admin: 01/03/19 09:59 Dose: 5 mg Colchicine (Colocrys) 0.6 mg PO DAILY [facility] Epoetin Gavin (Procrit) 10,000 unit IV TTS [facility] Last Admin: 01/02/19 10:47 Dose: 10,000 unit Ferric Sodium Gluconate Complex (Ferrlecit) 125 mg IVPB DAILY [facility] Stop: 01/04/19 10:01 Last Admin: 01/03/19 12:14 Dose: 125 mg Finasteride (Proscar) 5 mg PO DAILY [facility] Last Admin: 01/03/19 09:59 Dose: 5 mg Fluconazole (Diflucan) 100 mg PO DAILY [facility]; Protocol Last Admin: 01/03/19 09:59 Dose: 100 mg Cefepime HCl 1 gm/ Dextrose 50 mls @ 100 mls/hr IVPB Q24H [facility]; Protocol Last Admin: 01/04/19 01:14 Dose: 100 mls/hr Ibuprofen (Motrin Tab) 600 mg PO BID [facility] Last Admin: 01/03/19 17:40 Dose: 600 mg Lidocaine HCl (Lidocaine 1%) 20 ml INFIL PRN PRN PRN Reason: To be administered by Dr Bartlett. Methylprednisolone (Solu-Medrol) 40 mg IV Q12 [facility] Last Admin: 03/20/19 22:27 Dose: 40 mg Oxycodone/Acetaminophen (Percocet 5/325 Mg Tab) 1 tab PO Q6H PRN PRN Reason: Pain, moderate (4-7) Stop: 01/04/19 22:43 Pantoprazole Sodium (Protonix Ec Tab) 40 mg PO Q24H [facility] Last Admin: 01/03/19 09:58 Dose: 40 mg Sevelamer Carbonate (Renvela) 800 mg PO TIDCC [facility] Last Admin: 01/03/19 17:40 Dose: 800 mg Tamsulosin HCl (Flomax) 0.4 mg PO HS [facility] Last Admin: 01/03/19 22:27 Dose: 0.4 mg Vitamin B Complex/Vit C/Folic Acid (Nephro-Brandy) 1 tab PO 0800 [facility] Last Admin: 01/03/19 09:58 Dose: 1 tab - Labs Labs: 01/01/19 07:09 01/01/19 07:09 PT 13.8 SECONDS (9.7-12.2) H 12/28/18 19:11 INR 1.3 12/28/18 19:11 APTT 36 SECONDS (21-34) H 12/28/18 19:11 - Constitutional Appears: Chronically Ill - Head Exam Head Exam: NORMAL INSPECTION - Eye Exam Eye Exam: absent: Scleral icterus - Neck Exam Neck Exam: Full ROM - Respiratory Exam Respiratory Exam: NORMAL BREATHING PATTERN - GI/Abdominal Exam GI & Abdominal Exam: Soft - Extremities Exam Extremities Exam: absent: Pedal Edema Additional comments: +bilateral knee pain - Neurological Exam Neurological Exam: Alert Assessment and Plan - Assessment and Plan (Free Text) Assessment: Gout ESRD Anemia HTN Osteoarthritis Plan: Pain meds dialysis Ortho eval Ptx
[2019-01-04] MEDS: Pantoprazole 40 mg EC Tab PO SCH ×2 (10:41→13:20)
[2019-01-04] MEDS: Epoetin Alfa 10,000 unit/ml Dialysis IV SCH ×2 (10:41→12:00)
[2019-01-04] MEDS: MethylPREDNISolone 40 mg Vial IV SCH ×2 (10:41→22:44)
[2019-01-04] MEDS: Multivitamin Vitamin B Complex (Nephro-Vite) Tab PO SCH (10:41)
[2019-01-04] MEDS: Ferric Sodium Gluconat Complex 62.5 mg/5 ml Vial IVPB SCH (10:41)
--- NOTE | 2019-01-04 11:50 | CP.PCM.PN ---
Subjective - Date & Time of Evaluation Date of Evaluation: 01/04/19 Time of Evaluation: 11:49 - Subjective Subjective: pt is seen and examined, follow up consult is dictated #[id number] seen in hd Objective - Vital Signs/Intake and Output Vital Signs (last 24 hours): Temp Pulse Resp BP Pulse Ox 97.3 F L 63 16 114/71 98 01/04/19 09:35 01/04/19 09:35 01/04/19 09:35 01/04/19 10:20 01/04/19 09:35 Intake and Output: 01/04/19 01/04/19 06:59 18:59 Intake Total 170 Output Total 675 Balance -505 - Medications Medications: Current Medications Acetaminophen (Tylenol 325mg Tab) 650 mg PO Q6 PRN PRN Reason: Fever >100.4 F Last Admin: 01/01/19 06:52 Dose: 650 mg Allopurinol (Zyloprim) 100 mg PO DAILY [facility] Last Admin: 01/04/19 10:42 Dose: Not Given Amlodipine Besylate (Norvasc) 5 mg PO DAILY [facility] Last Admin: 01/04/19 10:41 Dose: Not Given Colchicine (Colocrys) 0.6 mg PO DAILY [facility] Last Admin: 01/04/19 10:39 Dose: Not Given Epoetin Gavin (Procrit) 10,000 unit IV TTS [facility] Last Admin: 01/04/19 10:41 Dose: Not Given Finasteride (Proscar) 5 mg PO DAILY [facility] Last Admin: 01/04/19 10:41 Dose: Not Given Fluconazole (Diflucan) 100 mg PO DAILY [facility]; Protocol Last Admin: 01/04/19 10:40 Dose: Not Given Cefepime HCl 1 gm/ Dextrose 50 mls @ 100 mls/hr IVPB Q24H [facility]; Protocol Last Admin: 01/04/19 01:14 Dose: 100 mls/hr Ibuprofen (Motrin Tab) 600 mg PO BID [facility] Last Admin: 01/04/19 10:41 Dose: Not Given Lidocaine HCl (Lidocaine 1%) 20 ml INFIL PRN PRN PRN Reason: To be administered by Dr Bartlett. Methylprednisolone (Solu-Medrol) 40 mg IV Q12 [facility] Last Admin: 01/04/19 10:41 Dose: Not Given Oxycodone/Acetaminophen (Percocet 5/325 Mg Tab) 1 tab PO Q6H PRN PRN Reason: Pain, moderate (4-7) Stop: 01/04/19 22:43 Pantoprazole Sodium (Protonix Ec Tab) 40 mg PO Q24H [facility] Last Admin: 01/04/19 10:41 Dose: Not Given Sevelamer Carbonate (Renvela) 800 mg PO TIDCC [facility] Last Admin: 01/04/19 10:41 Dose: Not Given Tamsulosin HCl (Flomax) 0.4 mg PO HS [facility] Last Admin: 01/03/19 22:27 Dose: 0.4 mg Vitamin B Complex/Vit C/Folic Acid (Nephro-Brandy) 1 tab PO 0800 [facility] Last Admin: 01/04/19 10:41 Dose: Not Given - Labs Labs: 01/01/19 07:09 01/01/19 07:09 PT 13.8 SECONDS (9.7-12.2) H 12/28/18 19:11 INR 1.3 12/28/18 19:11 APTT 36 SECONDS (21-34) H 12/28/18 19:11
--- NOTE | 2019-01-04 14:54 | CP.PCM.PN ---
Subjective - Date & Time of Evaluation Date of Evaluation: 01/04/19 Time of Evaluation: 14:51 - Subjective Subjective: Patient staes he is feeling better. He is able to walk with minimal knee pain. Review of Systems - Review of Systems All systems: reviewed and no additional remarkable complaints except - Musculoskeletal Musculoskeletal: As Par HPI Objective - Vital Signs/Intake and Output Vital Signs (last 24 hours): Temp Pulse Resp BP Pulse Ox 97.8 F 61 16 129/83 98 01/04/19 12:30 01/04/19 12:30 01/04/19 12:30 01/04/19 12:30 01/04/19 12:30 Intake and Output: 01/04/19 01/04/19 06:59 18:59 Intake Total 170 Output Total 675 Balance -505 - Medications Medications: Current Medications Acetaminophen (Tylenol 325mg Tab) 650 mg PO Q6 PRN PRN Reason: Fever >100.4 F Last Admin: 01/01/19 06:52 Dose: 650 mg Allopurinol (Zyloprim) 100 mg PO DAILY [facility] Last Admin: 01/04/19 13:19 Dose: 100 mg Amlodipine Besylate (Norvasc) 5 mg PO DAILY [facility] Last Admin: 01/04/19 10:41 Dose: Not Given Colchicine (Colocrys) 0.6 mg PO DAILY [facility] Last Admin: 01/04/19 10:39 Dose: Not Given Epoetin Gavin (Procrit) 10,000 unit IV TTS [facility] Last Admin: 01/04/19 12:00 Dose: 10,000 unit Finasteride (Proscar) 5 mg PO DAILY [facility] Last Admin: 01/04/19 13:21 Dose: 5 mg Fluconazole (Diflucan) 100 mg PO DAILY [facility]; Protocol Last Admin: 01/04/19 13:24 Dose: 100 mg Heparin Sodium (Porcine) (Heparin (For Dialysis)) 3,700 units IVP TTS [facility] Last Admin: 01/04/19 12:35 Dose: 3,700 units Cefepime HCl 1 gm/ Dextrose 50 mls @ 100 mls/hr IVPB Q24H [facility]; Protocol Last Admin: 01/04/19 01:14 Dose: 100 mls/hr Ibuprofen (Motrin Tab) 600 mg PO BID [facility] Last Admin: 01/04/19 10:41 Dose: Not Given Lidocaine HCl (Lidocaine 1%) 20 ml INFIL PRN PRN PRN Reason: To be administered by Dr Bartlett. Methylprednisolone (Solu-Medrol) 40 mg IV Q12 [facility] Last Admin: 01/04/19 10:41 Dose: Not Given Oxycodone/Acetaminophen (Percocet 5/325 Mg Tab) 1 tab PO Q6H PRN PRN Reason: Pain, moderate (4-7) Stop: 01/04/19 22:43 Pantoprazole Sodium (Protonix Ec Tab) 40 mg PO Q24H [facility] Last Admin: 01/04/19 13:20 Dose: 40 mg Sevelamer Carbonate (Renvela) 800 mg PO TIDCC [facility] Last Admin: 01/04/19 13:20 Dose: 800 mg Tamsulosin HCl (Flomax) 0.4 mg PO HS [facility] Last Admin: 01/03/19 22:27 Dose: 0.4 mg Vitamin B Complex/Vit C/Folic Acid (Nephro-Brandy) 1 tab PO 0800 [facility] Last Admin: 01/04/19 10:41 Dose: Not Given - Labs Labs: 01/01/19 07:09 01/01/19 07:09 PT 13.8 SECONDS (9.7-12.2) H 12/28/18 19:11 INR 1.3 12/28/18 19:11 APTT 36 SECONDS (21-34) H 12/28/18 19:11 - Constitutional Appears: Well, No Acute Distress - Neck Exam Neck Exam: Full ROM, Normal Inspection - Respiratory Exam Respiratory Exam: NORMAL BREATHING PATTERN - Cardiovascular Exam Additional comments: +DP/PT pulses - Extremities Exam Additional comments: minimal effusion, no pain, no erythema - Neurological Exam Neurological Exam: Alert, Awake, Oriented x3 Neuro motor strength exam: Right Lower Extremity: 5 - Psychiatric Exam Psychiatric exam: Normal Affect, Normal Mood - Skin Skin Exam: Dry, Intact, Normal Color, Warm Assessment and Plan (1) Acute gout of knee Assessment & Plan: improving on steroids no injection per Dr. Bartlett as improving ortho stable f/u as outpt prn d/w Dr. Bartlett, agrees with above Status: Acute
--- NOTE | 2019-01-05 01:04 | PN ---
DATE: 01/04/2019 FOLLOWUP RENAL CONSULTATION LOCATION: The patient is located in room 665, bed A, [facility]. REQUESTED BY: Skye Harp MD REASON FOR FOLLOWUP: End-stage renal disease, continuation of hemodialysis. SUBJECTIVE: Mr. Fallon is a 73-year-old elderly very pleasant [place] male, thin built, with a history of end-stage renal disease, hypertension, gout, secondary hyperparathyroidism, anemia, who was admitted with both knee swelling and pain and difficult to ambulate, and the patient was suspected having acute gouty arthritis versus pseudogout. The patient was started on IV steroids, Solu-Medrol. The patient is feeling much better this morning, able to bend, still left knee swelling is there, less pain. Denies any chest pain or palpitation. Denies any fever or cough. No abdominal pain. No nausea, vomiting, or diarrhea. The patient was seen and examined during dialysis and UF goal is about 500 mL. PHYSICAL EXAMINATION: VITAL SIGNS: As follows: Blood pressure 114/69, pulse 61, respirations 16, temperature 97.8, saturation 98%. Height 5 feet 6 inches, weight is 94 pounds. GENERAL: Mr. Fallon is a 73-year-old elderly [place] male, thin built, not in distress. HEENT: Pupils normal, reactive to light and accommodation. Conjunctivae pink. Sclerae anicteric. Tongue is moist and trachea is midline. LUNGS: Symmetric on both sides. Bilateral breath sounds present. Clear to auscultation. CVS: [place] at the fifth intercostal space, midclavicular line. S1 and S2 audible. No murmur. No gallop. ABDOMEN: Normal in appearance. Soft, tympanitic. No guarding. No rigidity. No hepatosplenomegaly. 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 Nonfocal neuro examination. Cranial nerves II-XII grossly intact. Sensory and motor system is within normal limits. EXTREMITIES: No cyanosis, no clubbing, no edema. The patient has bilateral knee swelling which is improving left more than the right. CURRENT MEDICATIONS: Include as follows: Cefepime 1 g every 24 hours, colchicine 0.6 mg p.o. daily, Diflucan 100 mg p.o. daily, Flomax 0.4 mg p.o. at bedtime, heparin 3700 units IV push three times a week, lidocaine, ibuprofen 600 mg p.o. b.i.d., Nephro-Brandy 1 tablet q.a.m., amlodipine 5 mg daily, Procrit 10,000 units three times a week, Proscar 5 mg p.o. daily, Protonix 40 mg p.o. every 24 hours, Renvela 800 mg p.o. t.i.d., Solu-Medrol 40 mg IV every 12 hours, Tylenol, allopurinol 100 mg p.o. daily. LABORATORY DATA: His laboratory data include as follows. No new labs are available for today. ASSESSMENT AND PLAN: In summary, Mr. Fallon is a 73-year-old elderly male with a history of hypertension, gout, anemia, secondary hyperparathyroidism with bilateral knee swelling, left more than right. 1. End-stage renal disease. Continue hemodialysis three times a week, Tuesday, , Tuesday. 2. Bilateral knee joint pains, rule out the acute gouty arthritis. Continue Solu-Medrol intravenous piggyback every 12 hours and we will change tomorrow to once a day. The patient may be discharged home on tapering dose of steroids and and also continue gastrointestinal prophylaxis, Protonix 40 mg daily, continue Renvela, continue Procrit. Repeat complete blood count, comprehensive metabolic profile in a.m. Thank you for allowing me to participate in your patient's care. The patient was seen and examined during dialysis today. UF goal was about 500 mL. Simran Bacon MD
[2019-01-05 08:26] LABS: MEAN PLATELET VOLUME 8.1 fL (7.2-11.7)
[2019-01-05 08:45] LABS: ALBUMIN 3.1 g/dL (3.5-5.0); CALCIUM 8.3 mg/dl (8.6-10.4)
[2019-01-05 08:59] LABS: MEAN CORPUSCULAR HEMOGLOBIN 24.7 pg (27.0-31.0); MEAN CORPUSCULAR HGB CONC 31.4 g/dL (33.0-37.0); RBC 4.44 Mil/uL (4.40-5.90); WHITE BLOOD COUNT 8.4 K/uL (4.8-10.8)
[2019-01-05 09:00] LABS: MEAN CELL VOLUME 78.7 fL (80.0-94.0)
[2019-01-05] MEDS: MethylPREDNISolone 40 mg Vial IV SCH ×2 (09:32→22:34)
[2019-01-05] MEDS: Multivitamin Vitamin B Complex (Nephro-Vite) Tab PO SCH (09:32)
[2019-01-05] MEDS: Pantoprazole 40 mg EC Tab PO SCH (09:36)
--- NOTE | 2019-01-05 12:04 | CP.PCM.PN ---
Subjective - Date & Time of Evaluation Date of Evaluation: 01/05/19 Time of Evaluation: 12:03 - Subjective Subjective: Patient states his knee feels really good. He has a walker at home that he will be using. No new complaints. Objective - Vital Signs/Intake and Output Vital Signs (last 24 hours): Temp Pulse Resp BP Pulse Ox 97.6 F 74 18 127/80 96 01/05/19 07:20 01/05/19 07:20 01/05/19 07:20 01/05/19 07:20 01/05/19 07:20 - Medications Medications: Current Medications Acetaminophen (Tylenol 325mg Tab) 650 mg PO Q6 PRN PRN Reason: Fever >100.4 F Last Admin: 01/01/19 06:52 Dose: 650 mg Allopurinol (Zyloprim) 100 mg PO DAILY [facility] Last Admin: 01/05/19 09:32 Dose: 100 mg Amlodipine Besylate (Norvasc) 5 mg PO DAILY [facility] Last Admin: 01/05/19 09:35 Dose: 5 mg Colchicine (Colocrys) 0.6 mg PO DAILY [facility] Last Admin: 01/05/19 09:31 Dose: 0.6 mg Epoetin Gavin (Procrit) 10,000 unit IV TTS [facility] Last Admin: 01/04/19 12:00 Dose: 10,000 unit Finasteride (Proscar) 5 mg PO DAILY [facility] Last Admin: 01/05/19 09:31 Dose: 5 mg Fluconazole (Diflucan) 100 mg PO DAILY [facility]; Protocol Last Admin: 01/05/19 09:31 Dose: 100 mg Heparin Sodium (Porcine) (Heparin (For Dialysis)) 3,700 units IVP TTS [facility] Last Admin: 01/04/19 12:35 Dose: 3,700 units Cefepime HCl 1 gm/ Dextrose 50 mls @ 100 mls/hr IVPB Q24H [facility]; Protocol Last Admin: 01/05/19 01:00 Dose: 100 mls/hr Ibuprofen (Motrin Tab) 600 mg PO BID [facility] Last Admin: 01/05/19 09:31 Dose: 600 mg Lidocaine HCl (Lidocaine 1%) 20 ml INFIL PRN PRN PRN Reason: To be administered by Dr Bartlett. Methylprednisolone (Solu-Medrol) 40 mg IV Q12 [facility] Last Admin: 01/05/19 09:32 Dose: 40 mg Pantoprazole Sodium (Protonix Ec Tab) 40 mg PO Q24H [facility] Last Admin: 01/05/19 09:36 Dose: 40 mg Sevelamer Carbonate (Renvela) 800 mg PO TIDCC [facility] Last Admin: 01/05/19 11:57 Dose: 800 mg Tamsulosin HCl (Flomax) 0.4 mg PO HS [facility] Last Admin: 01/04/19 22:44 Dose: 0.4 mg Vitamin B Complex/Vit C/Folic Acid (Nephro-Brandy) 1 tab PO 0800 [facility] Last Admin: 01/05/19 09:32 Dose: 1 tab - Labs Labs: 01/05/19 08:05 01/05/19 08:05 PT 13.8 SECONDS (9.7-12.2) H 12/28/18 19:11 INR 1.3 12/28/18 19:11 APTT 36 SECONDS (21-34) H 12/28/18 19:11 - Extremities Exam Additional comments: right knee: +ROM ankle/toes, sensation intact, minimal joint effusion, no erythema, full pain free ROM, able to stand independently, calves soft NT neg homans Assessment and Plan (1) Acute gout of knee Assessment & Plan: improved no orthopedic issues f/u Dr. Bartlett in office prn cont PT/OT d/w Dr. Bartlett, agrees with above Status: Acute
[2019-01-05 17:51] VITALS: O2SAT 98
--- NOTE | 2019-01-05 19:24 | CP.PCM.PN ---
Subjective - Date & Time of Evaluation Date of Evaluation: 01/05/19 Time of Evaluation: 09:00 - Subjective Subjective: doing well no fever iv rx renewed Objective - Vital Signs/Intake and Output Vital Signs (last 24 hours): Temp Pulse Resp BP Pulse Ox 97.5 F L 69 20 122/69 98 01/05/19 15:50 01/05/19 15:50 01/05/19 15:50 01/05/19 15:50 01/05/19 15:50 - Medications Medications: Current Medications Acetaminophen (Tylenol 325mg Tab) 650 mg PO Q6 PRN PRN Reason: Fever >100.4 F Last Admin: 01/01/19 06:52 Dose: 650 mg Allopurinol (Zyloprim) 100 mg PO DAILY [facility] Last Admin: 01/05/19 09:32 Dose: 100 mg Amlodipine Besylate (Norvasc) 5 mg PO DAILY [facility] Last Admin: 01/05/19 09:35 Dose: 5 mg Colchicine (Colocrys) 0.6 mg PO DAILY [facility] Last Admin: 01/05/19 09:31 Dose: 0.6 mg Epoetin Gavin (Procrit) 10,000 unit IV TTS [facility] Last Admin: 01/04/19 12:00 Dose: 10,000 unit Finasteride (Proscar) 5 mg PO DAILY [facility] Last Admin: 01/05/19 09:31 Dose: 5 mg Fluconazole (Diflucan) 100 mg PO DAILY [facility]; Protocol Last Admin: 01/05/19 09:31 Dose: 100 mg Heparin Sodium (Porcine) (Heparin (For Dialysis)) 3,700 units IVP TTS [facility] Last Admin: 01/04/19 12:35 Dose: 3,700 units Cefepime HCl 1 gm/ Dextrose 50 mls @ 100 mls/hr IVPB Q24H [facility]; Protocol Last Admin: 01/05/19 01:00 Dose: 100 mls/hr Ibuprofen (Motrin Tab) 600 mg PO BID [facility] Last Admin: 01/05/19 18:14 Dose: 600 mg Lidocaine HCl (Lidocaine 1%) 20 ml INFIL PRN PRN PRN Reason: To be administered by Dr Bartlett. Methylprednisolone (Solu-Medrol) 40 mg IV Q12 [facility] Last Admin: 01/05/19 09:32 Dose: 40 mg Pantoprazole Sodium (Protonix Ec Tab) 40 mg PO Q24H [facility] Last Admin: 01/05/19 09:36 Dose: 40 mg Sevelamer Carbonate (Renvela) 800 mg PO TIDCC [facility] Last Admin: 01/05/19 18:15 Dose: 800 mg Tamsulosin HCl (Flomax) 0.4 mg PO HS [facility] Last Admin: 01/04/19 22:44 Dose: 0.4 mg Vitamin B Complex/Vit C/Folic Acid (Nephro-Brandy) 1 tab PO 0800 [facility] Last Admin: 01/05/19 09:32 Dose: 1 tab - Labs Labs: 01/05/19 08:05 01/05/19 08:05 PT 13.8 SECONDS (9.7-12.2) H 12/28/18 19:11 INR 1.3 12/28/18 19:11 APTT 36 SECONDS (21-34) H 12/28/18 19:11 - Constitutional Appears: Well - Head Exam Head Exam: ATRAUMATIC, NORMAL INSPECTION, NORMOCEPHALIC - Eye Exam Eye Exam: EOMI, Normal appearance, PERRL Pupil Exam: NORMAL ACCOMODATION, PERRL - ENT Exam ENT Exam: Mucous Membranes Moist, Normal Exam - Neck Exam Neck Exam: Full ROM, Normal Inspection. absent: Lymphadenopathy - Respiratory Exam Respiratory Exam: Clear to Ausculation Bilateral, NORMAL BREATHING PATTERN - Cardiovascular Exam Cardiovascular Exam: REGULAR RHYTHM, +S1, +S2. absent: Murmur - GI/Abdominal Exam GI & Abdominal Exam: Soft, Normal Bowel Sounds. absent: Tenderness - Rectal Exam Rectal Exam: Deferred - Exam Exam: NORMAL INSPECTION - Extremities Exam Extremities Exam: Full ROM, Normal Capillary Refill, Normal Inspection. absent: Joint Swelling, Pedal Edema - Back Exam Back Exam: NORMAL INSPECTION - Neurological Exam Neurological Exam: Alert, Awake, CN II-XII Intact, Normal Gait, Oriented x3 - Psychiatric Exam Psychiatric exam: Normal Affect, Normal Mood - Skin Skin Exam: Dry, Intact, Normal Color, Warm Assessment and Plan (1) Anemia in CKD (chronic kidney disease) Status: Acute (2) Leukocytosis Status: Acute (3) ESRD (end stage renal disease) Status: Chronic (4) Chronic kidney disease-mineral and bone disorder Status: Acute (5) Enlarged prostate with urinary retention Status: Acute (6) Fever Status: Acute (7) Gout Status: Acute (8) BPH (benign prostatic hyperplasia) Status: Chronic (9) Hypertensive CKD, ESRD on dialysis Status: Chronic - Assessment and Plan (Free Text) Assessment: cont rx as out pt as per Dr Harp
--- NOTE | 2019-01-05 20:08 | CP.PCM.PN ---
Subjective - Date & Time of Evaluation Date of Evaluation: 01/05/19 Time of Evaluation: 20:08 - Subjective Subjective: pt is seenand examined, follow up consult is dictated #[id number] hd in am Objective - Vital Signs/Intake and Output Vital Signs (last 24 hours): Temp Pulse Resp BP Pulse Ox 97.5 F L 69 20 122/69 98 01/05/19 15:50 01/05/19 15:50 01/05/19 15:50 01/05/19 15:50 01/05/19 15:50 - Medications Medications: Current Medications Acetaminophen (Tylenol 325mg Tab) 650 mg PO Q6 PRN PRN Reason: Fever >100.4 F Last Admin: 01/01/19 06:52 Dose: 650 mg Allopurinol (Zyloprim) 100 mg PO DAILY [facility] Last Admin: 01/05/19 09:32 Dose: 100 mg Amlodipine Besylate (Norvasc) 5 mg PO DAILY [facility] Last Admin: 01/05/19 09:35 Dose: 5 mg Colchicine (Colocrys) 0.6 mg PO DAILY [facility] Last Admin: 01/05/19 09:31 Dose: 0.6 mg Epoetin Gavin (Procrit) 10,000 unit IV TTS [facility] Last Admin: 01/04/19 12:00 Dose: 10,000 unit Finasteride (Proscar) 5 mg PO DAILY [facility] Last Admin: 01/05/19 09:31 Dose: 5 mg Fluconazole (Diflucan) 100 mg PO DAILY [facility]; Protocol Last Admin: 01/05/19 09:31 Dose: 100 mg Heparin Sodium (Porcine) (Heparin (For Dialysis)) 3,700 units IVP TTS [facility] Last Admin: 01/04/19 12:35 Dose: 3,700 units Cefepime HCl 1 gm/ Dextrose 50 mls @ 100 mls/hr IVPB Q24H [facility]; Protocol Last Admin: 01/05/19 01:00 Dose: 100 mls/hr Ibuprofen (Motrin Tab) 600 mg PO BID [facility] Last Admin: 01/05/19 18:14 Dose: 600 mg Lidocaine HCl (Lidocaine 1%) 20 ml INFIL PRN PRN PRN Reason: To be administered by Dr Bartlett. Methylprednisolone (Solu-Medrol) 40 mg IV Q12 [facility] Last Admin: 01/05/19 09:32 Dose: 40 mg Pantoprazole Sodium (Protonix Ec Tab) 40 mg PO Q24H [facility] Last Admin: 01/05/19 09:36 Dose: 40 mg Sevelamer Carbonate (Renvela) 800 mg PO TIDCC [facility] Last Admin: 01/05/19 18:15 Dose: 800 mg Tamsulosin HCl (Flomax) 0.4 mg PO HS [facility] Last Admin: 01/04/19 22:44 Dose: 0.4 mg Vitamin B Complex/Vit C/Folic Acid (Nephro-Brandy) 1 tab PO 0800 [facility] Last Admin: 01/05/19 09:32 Dose: 1 tab - Labs Labs: 01/05/19 08:05 01/05/19 08:05 PT 13.8 SECONDS (9.7-12.2) H 12/28/18 19:11 INR 1.3 12/28/18 19:11 APTT 36 SECONDS (21-34) H 12/28/18 19:11
--- NOTE | 2019-01-06 02:01 | PN ---
DATE: 01/05/2019 FOLLOWUP RENAL CONSULTATION LOCATION: The patient is located in [facility], room 665, bed A. REQUESTED BY: Skye Harp MD REASON FOR FOLLOWUP: End-stage renal disease, acute gouty arthritis with bilateral knee swelling and pain. HISTORY OF PRESENT ILLNESS: Mr. Fallon is a 73-year-old elderly, very thin-built [place]ian male with a history of longstanding hypertension, gout, anemia, secondary hyperparathyroidism, end-stage renal disease, who was initially admitted a few weeks ago with worsening renal function and started on hemodialysis through [facility] and status post left upper extremity AV fistula. The patient was admitted now with chief complaints of bilateral knee joint swelling and pain and difficult to ambulate, and the patient was started on IV Solu-Medrol. The patient is feeling much better and able to bend his both knees, and the patient is eager to go home tomorrow. No chest pain. No palpitation. No fever. No cough. No abdominal pain. No nausea, vomiting, or diarrhea. PHYSICAL EXAMINATION: VITAL SIGNS: Blood pressure 122/69, pulse 69, respirations 20, temperature 97.5, saturation 98%. Height 5 feet 6 inches and weight is 94 pounds. GENERAL: Mr. Fallon is a 73-year-old very thin-built [place]ian male, moderately built, moderately nourished, not in distress. HEENT: Pupils normal, reactive to light and accommodation. Conjunctivae pink. Sclerae anicteric. Tongue is moist. Trachea is midline. LUNGS: Symmetric on both sides. Bilateral breath sounds present. Clear to auscultation. CARDIOVASCULAR SYSTEM: [place] at the fifth intercostal space and midclavicular line. S1, S2 audible. No murmur or gallop. ABDOMEN: Normal in appearance. Soft, tympanitic. No guarding. No rigidity. No hepatosplenomegaly. CENTRAL NERVOUS SYSTEM: The patient is alert, awake, and oriented x3. Nonfocal neuro examination. Cranial nerves II through XII grossly intact. Sensory and motor system is within normal limits. EXTREMITIES: No cyanosis, no clubbing, no edema. The patient has bilateral knee swelling which is improving and no tenderness, no pain today. CURRENT MEDICATIONS: Include as follows; cefepime 1 g daily, colchicine 0.6 mg p.o. daily, Diflucan 100 mg p.o. daily, Flomax 0.4 mg p.o. at bedtime, heparin 3700 units three times a week, lidocaine not given for , ibuprofen 600 mg p.o. b.i.d., Nephro-Brandy 1 tablet daily, Norvasc 5 mg p.o. daily, Procrit 10,000 units three times a week, Proscar 5 mg p.o. daily, Protonix 40 mg p.o. every 24 hours, Renvela 800 mg p.o. t.i.d., Solu-Medrol 40 mg IV every 12 hours, Tylenol, and allopurinol. LABORATORY DATA: Include as follows: As of 01/05/2019, WBC 8.4, hemoglobin 11, hematocrit is 34.9, platelets 296. Sodium 132, potassium 4.6, chloride 95, CO 26, BUN 60, creatinine 4.1, glucose 201, calcium 8.3, phosphorus 3.8 magnesium is 2. Total bili 0.4, AST 59, ALT 60, alkaline phosphatase 185, total protein 6.4, albumin is 3.1. ASSESSMENT AND PLAN: In summary, Mr. Fallon is a 73-year-old elderly [place]ian male with a history of hypertension, gout, anemia, end-stage renal disease, secondary hyperparathyroidism, who was admitted with bilateral knee swelling and difficult to ambulate and also suprapatellar effusion on the left side. The patient was started on intravenous Solu-Medrol with significant improvement. 1. End-stage renal disease. Continue hemodialysis three times a week; Tuesday, , Tuesday. 2. Acute gouty arthritis, most likely. Continue Solu-Medrol. We will decrease to 40 mg tomorrow one dose, and we will we will also discharge home with tapering dose of steroids 20 mg from Tuesday morning and taper 5 mg every 2 days and then discontinue. to discontinue nonsteroids, ibuprofen. We will schedule for hemodialysis in the morning. Continue all his current medications; Procrit, Renvela. Thank you for allowing me to participate in your patient's care. Vasudeva Jonnalagadda, MD [facility] # [phone]
[2019-01-06 07:17] LABS: BASO # 0.1 K/uL (0.0-0.2); BASO % 0.6 % (0.0-2.0); EOS % 0.1 % (0.0-4.0); HEMOGLOBIN 11.6 g/dL (12.0-18.0); LYMPH # 0.4 K/uL (1.0-4.3); MEAN CELL VOLUME 79.4 fL (80.0-94.0); MEAN CORPUSCULAR HEMOGLOBIN 24.6 pg (27.0-31.0); MEAN PLATELET VOLUME 8.1 fL (7.2-11.7); MONO # 0.5 K/uL (0.0-0.8); MONO % 3.6 % (0.0-10.0); NEUT # 12.5 K/uL (1.8-7.0); NEUT % 92.7 % (50.0-75.0); NRBC % 3.4 % (0.0-2.0); PLATELET COUNT 346 K/uL (130-400); RED CELL DISTRIBUTION WIDTH 23.6 % (11.5-14.5); WHITE BLOOD COUNT 13.5 K/uL (4.8-10.8)
[2019-01-06] MEDS: Multivitamin Vitamin B Complex (Nephro-Vite) Tab PO SCH (08:04)
[2019-01-06 08:21] LABS: ALBUMIN 3.5 g/dL (3.5-5.0); CALCIUM 9.1 mg/dl (8.6-10.4)
[2019-01-06 09:22] LABS: LYMPHOCYTE 3 % (20-40); MONOCYTE 3 % (0-10); NEUTROPHIL 94 % (50-75); NUCLEATED RED BLOOD CELL 2 % (0-0); PLATELET ESTIMATE NORMAL (NORMAL); TOTAL CELLS COUNTED 100
[2019-01-06 09:23] LABS: ANISOCYTOSIS MARKED; HYPOCHROMIC MODERATE; OVALOCYTES SLIGHT; POIKILOCYTOSIS MODERATE; POLYCHROMIC SLIGHT; SCHISTOCYTES SLIGHT
[2019-01-06 09:24] LABS: BURR CELLS SLIGHT; SPHEROCYTES SLIGHT; TARGET CELLS SLIGHT
[2019-01-06 09:25] LABS: LARGE PLATELETS PRESENT; MICROCYTOSIS SLIGHT
--- NOTE | 2019-01-06 09:48 | CP.PCM.PN ---
Subjective - Date & Time of Evaluation Date of Evaluation: 01/06/19 Time of Evaluation: 09:48 - Subjective Subjective: pt is seen and examined, follow up consult is dictated #[id number] for hd today Objective - Vital Signs/Intake and Output Vital Signs (last 24 hours): Temp Pulse Resp BP Pulse Ox 98.1 F 66 20 127/70 98 01/06/19 08:54 01/06/19 08:54 01/06/19 08:54 01/06/19 08:54 01/06/19 08:54 Intake and Output: 01/06/19 01/06/19 06:59 18:59 Output Total 200 Balance -200 - Medications Medications: Current Medications Acetaminophen (Tylenol 325mg Tab) 650 mg PO Q6 PRN PRN Reason: Fever >100.4 F Last Admin: 01/01/19 06:52 Dose: 650 mg Allopurinol (Zyloprim) 100 mg PO DAILY [facility] Last Admin: 01/05/19 09:32 Dose: 100 mg Amlodipine Besylate (Norvasc) 5 mg PO DAILY [facility] Last Admin: 01/05/19 09:35 Dose: 5 mg Colchicine (Colocrys) 0.6 mg PO DAILY [facility] Last Admin: 01/05/19 09:31 Dose: 0.6 mg Epoetin Gavin (Procrit) 10,000 unit IV TTS [facility] Last Admin: 01/04/19 12:00 Dose: 10,000 unit Finasteride (Proscar) 5 mg PO DAILY [facility] Last Admin: 01/05/19 09:31 Dose: 5 mg Fluconazole (Diflucan) 100 mg PO DAILY [facility]; Protocol Last Admin: 01/05/19 09:31 Dose: 100 mg Heparin Sodium (Porcine) (Heparin (For Dialysis)) 3,700 units IVP TTS [facility] Last Admin: 01/04/19 12:35 Dose: 3,700 units Cefepime HCl 1 gm/ Dextrose 50 mls @ 100 mls/hr IVPB Q24H [facility]; Protocol Last Admin: 01/06/19 00:40 Dose: 100 mls/hr Lidocaine HCl (Lidocaine 1%) 20 ml INFIL PRN PRN PRN Reason: To be administered by Dr Bartlett. Methylprednisolone (Solu-Medrol) 40 mg IV DAILY [facility] Stop: 01/06/19 10:01 Pantoprazole Sodium (Protonix Ec Tab) 40 mg PO Q24H [facility] Last Admin: 01/05/19 09:36 Dose: 40 mg Prednisone (Prednisone Tab) 20 mg PO DAILY [facility] Stop: 01/08/19 10:01 Prednisone (Prednisone Tab) 15 mg PO DAILY [facility] Stop: 01/10/19 10:01 Prednisone (Prednisone Tab) 10 mg PO DAILY [facility] Stop: 01/12/19 10:01 Prednisone (Prednisone Tab) 5 mg PO DAILY [facility] Stop: 01/14/19 10:01 Sevelamer Carbonate (Renvela) 800 mg PO TIDCC [facility] Last Admin: 01/06/19 08:04 Dose: 800 mg Tamsulosin HCl (Flomax) 0.4 mg PO HS [facility] Last Admin: 01/05/19 22:35 Dose: 0.4 mg Vitamin B Complex/Vit C/Folic Acid (Nephro-Brandy) 1 tab PO 0800 [facility] Last Admin: 01/06/19 08:04 Dose: 1 tab - Labs Labs: 01/06/19 07:03 01/06/19 07:03 PT 13.8 SECONDS (9.7-12.2) H 12/28/18 19:11 INR 1.3 12/28/18 19:11 APTT 36 SECONDS (21-34) H 12/28/18 19:11
[2019-01-06] MEDS ORDERED: MethylPREDNISolone 40 mg Vial IV ONE (10:00)
[2019-01-06] MEDS ORDERED: MethylPREDNISolone 40 mg Vial IV SCH (10:00)
[2019-01-06] MEDS: Pantoprazole 40 mg EC Tab PO SCH (10:11)
[2019-01-06 14:57] VITALS: RESP 16; TEMP 97.4
[2019-01-06 16:43] VITALS: BP 127/74; PULSE 68
--- NOTE | 2019-01-07 03:24 | PN ---
DATE: 01/06/2019 LOCATION: The patient is located in room 665, bed A. REQUESTED BY: Skye Harp MD REASON FOR FOLLOWUP: End-stage renal disease, continuation of hemodialysis. SUBJECTIVE: Mr. Fallon is a 73-year-old elderly [place] male, thin built with a past medical history significant for longstanding hypertension, gout, anemia, secondary hyperparathyroidism, end-stage renal disease who was admitted with chief complaints of bilateral knee swelling and effusion of the left knee and difficult to ambulate for two weeks. The patient was found to have left suprapatellar effusion. The patient was started on IV Solu-Medrol and feeling much better. The patient was seen and examined during dialysis. UF goal is about 500 mL. The patient denies any headache or dizziness. No chest pain. No palpitation. No fever. No cough. The patient is eager to go home today after dialysis. PHYSICAL EXAMINATION: VITAL SIGNS: As follows: Blood pressure 127/74, pulse 68, respirations 16, temperature 97.4, saturation 98%. Height 5 feet 6 inches. Weight is 94 pounds. GENERAL: Mr. Fallon is a 73-year-old elderly male, thin built, not in acute distress. HEENT: Pupils normal and reactive to light and accommodation. Conjunctivae pink. Sclerae anicteric. Tongue is moist. Trachea is midline. LUNGS: Symmetric on both sides. Bilateral breath sounds present. Clear to auscultation. CARDIOVASCULAR SYSTEM: [place] at the fifth intercostal space, midclavicular line. S1 and S2 audible. No murmur or gallop. ABDOMEN: Normal in appearance. Soft, tympanitic. No guarding. No rigidity. No hepatosplenomegaly. CENTRAL NERVOUS SYSTEM: The patient is alert, awake, oriented x3. Nonfocal neuro examination. Cranial nerves II through XII grossly intact. Sensory and motor system is within normal limits. EXTREMITIES: No cyanosis, no clubbing, no edema. Both knees, less swelling and no tenderness, able to bend completely, almost normal. MEDICATIONS: His current medications include as follows: Tylenol, allopurinol 100 mg p.o. daily, amlodipine 5 mg daily, colchicine 0.6 mg p.o. daily, Procrit 10,000 units three times a week, Proscar 5 mg p.o. daily, Diflucan 100 mg p.o. daily, heparin 3700 units three times a week intracatheter, cefepime 1 g daily, Solu-Medrol 40 mg IV today x1 dose. The patient will be on tapering dose of prednisone, Protonix 40 mg p.o. daily. Prednisone 20 mg p.o. daily for two days, then prednisone 15 mg p.o. daily for two days, prednisone 10 mg for two days, and 5 mg p.o. daily for two days. Renvela 800 mg p.o. t.i.d., Flomax and Nephro-Brandy one tablet daily. LABORATORY DATA: Include as follows: As of 01/05/2019, WBC 13.5, hemoglobin 11.6, hematocrit is 37.3, platelets 346, neutrophils 94, lymphs 3, monos 3, and nucleated RBCs 2. Sodium 131, potassium 4.8, chloride 94, CO2 of 24, BUN 92, creatinine 5.6, glucose 155, calcium 8.1. Total bili 0.4, AST 60, ALT 53, alkaline phosphatase 206, and total protein 7, albumin is 3.5. ASSESSMENT AND PLAN: In summary, Mr. Fallon is a 73-year-old elderly male with hypertension, gout, anemia, secondary hyperparathyroidism, end-stage renal disease who was admitted with bilateral knee swelling, pain and difficult to ambulate for two weeks prior to the admission, suspected acute gouty arthritis, and started on intravenous steroids. The patient is feeling much better now. The patient will be discharged with tapering dose of prednisone 20 mg for two days, 15 mg for two days, 10 mg for two days, and 5 mg for two days. 1. End-stage renal disease. Continue hemodialysis three times a week on Tuesday, and Tuesday. 2. Acute gouty arthritis, improved with steroids. The patient needs to continue with tapering dose of steroids for another eight days. Continue Protonix. Continue Renvela. Continue Nephro-Brandy. The patient will be followed as an outpatient in the dialysis center and discussed with Dr. Harp. Simran Bacon MD
--- NOTE | 2019-01-08 21:49 | CP.PCM.PN ---
Subjective - Date & Time of Evaluation Date of Evaluation: 01/05/19 Time of Evaluation: 08:00 - Subjective Subjective: bilateral knee pain much improved will DC pending clearance from renal and ID Afebrile Objective - Vital Signs/Intake and Output Vital Signs (last 24 hours): Temp Pulse Resp BP Pulse Ox 97.4 F L 68 16 127/74 98 01/06/19 15:50 01/06/19 15:50 01/06/19 15:50 01/06/19 15:50 01/06/19 15:50 - Labs Labs: 01/06/19 07:03 01/06/19 07:03 PT 13.8 SECONDS (9.7-12.2) H 12/28/18 19:11 INR 1.3 12/28/18 19:11 APTT 36 SECONDS (21-34) H 12/28/18 19:11 - Constitutional Appears: Non-toxic - Eye Exam Eye Exam: absent: Scleral icterus - ENT Exam ENT Exam: Mucous Membranes Moist - Neck Exam Neck Exam: Full ROM - Respiratory Exam Respiratory Exam: absent: Decreased Breath Sounds - Cardiovascular Exam Cardiovascular Exam: REGULAR RHYTHM - GI/Abdominal Exam GI & Abdominal Exam: Soft - Extremities Exam Extremities Exam: absent: Pedal Edema Assessment and Plan - Assessment and Plan (Free Text) Assessment: Acute gouty arthritis ESRD Urinary retention HTN Plan: Cont HD Physical tx Pain meds
--- NOTE | 2019-01-08 22:03 | CP.PCM.PN ---
Subjective - Date & Time of Evaluation Date of Evaluation: 01/06/19 Time of Evaluation: 08:35 - Subjective Subjective: no chest pain no fever no knee pain ok to DC Objective - Vital Signs/Intake and Output Vital Signs (last 24 hours): Temp Pulse Resp BP Pulse Ox 97.4 F L 68 16 127/74 98 01/06/19 15:50 01/06/19 15:50 01/06/19 15:50 01/06/19 15:50 01/06/19 15:50 - Labs Labs: 01/06/19 07:03 01/06/19 07:03 PT 13.8 SECONDS (9.7-12.2) H 12/28/18 19:11 INR 1.3 12/28/18 19:11 APTT 36 SECONDS (21-34) H 12/28/18 19:11 - Constitutional Appears: Non-toxic - Eye Exam Eye Exam: absent: Scleral icterus - Neck Exam Neck Exam: Full ROM - Respiratory Exam Respiratory Exam: Decreased Breath Sounds - Cardiovascular Exam Cardiovascular Exam: REGULAR RHYTHM - GI/Abdominal Exam GI & Abdominal Exam: Soft - Extremities Exam Extremities Exam: Pedal Edema - Neurological Exam Neurological Exam: Alert Assessment and Plan - Assessment and Plan (Free Text) Assessment: Acute gouty arthritis ESRD HTN Urinary retention Plan: Cont meds OK to dc HD
--- NOTE | 2019-01-08 22:12 | CP.PCM.DIS ---
Provider - Provider Date of Admission: 12/28/18 20:48 Attending physician: Skye Harp MD Primary care physician: Skye Harp MD Consults: 12/28/18 20:44 Infectious Disease Consult Stat Comment: r/o sepsis Consulting Provider: Reid Mello Consulting Physician: Reid Mello Reason for Consult: r/o Sepsis 12/28/18 20:49 Infectious Disease Consult Stat Comment: Consulting Provider: Reid Mello Consulting Physician: Reid Mello Reason for Consult: r/o sepsis 12/28/18 20:53 Nephrology Consult Stat Comment: Renal Consulting Provider: Simran Bacon Consulting Physician: Simran Bacon Reason for Consult: renal 12/29/18 03:42 Palliative Care [Nursing Referral for Palliative Care] Routine Comment: Physician Instructions: Reason For Exam: palliative care score 10 12/29/18 07:00 Social Work Referral Routine Comment: 14 Physician Instructions: Reason For Exam: baylock score 14 12/29/18 14:03 Orthopedic Consult Routine Comment: Consulting Provider: Anette Bartlett Consulting Physician: Anette Bartlett Reason for Consult: knee pain , may need aspiration Time Spent in preparation of Discharge (in minutes): 40 Diagnosis - Discharge Diagnosis (1) End stage kidney disease Status: Acute Hospital Course - Lab Results Lab Results: Micro Results 12/28/18 19:30 Blood-Venous Blood Culture - Final NO GROWTH AFTER 5 DAYS 12/28/18 19:30 Blood-Venous Gram Stain - Final TEST NOT PERFORMED 12/28/18 18:50 Blood-Venous Blood Culture - Final NO GROWTH AFTER 5 DAYS 12/28/18 18:50 Blood-Venous Gram Stain - Final TEST NOT PERFORMED 12/28/18 20:30 Urine,Young Urine Culture - Final Klebsiella Pneumoniae Ssp Pneu Yeast Species Most Recent Lab Values WBC 13.5 K/uL (4.8-10.8) H D 01/06/19 07:03 RBC 4.70 Mil/uL (4.40-5.90) 01/06/19 07:03 Hgb 11.6 g/dL (12.0-18.0) L 01/06/19 07:03 Hct 37.3 % (35.0-51.0) 01/06/19 07:03 MCV 79.4 fL (80.0-94.0) L 01/06/19 07:03 MCH 24.6 pg (27.0-31.0) L 01/06/19 07:03 MCHC 31.0 g/dL (33.0-37.0) L 01/06/19 07:03 RDW 23.6 % (11.5-14.5) H 01/06/19 07:03 Plt Count 346 K/uL (130-400) 01/06/19 07:03 MPV 8.1 fL (7.2-11.7) 01/06/19 07:03 Neut % (Auto) 92.7 % (50.0-75.0) H 01/06/19 07:03 Lymph % (Auto) 3.0 % (20.0-40.0) L 01/06/19 07:03 [place] % (Auto) 3.6 % (0.0-10.0) 01/06/19 07:03 Eos % (Auto) 0.1 % (0.0-4.0) 01/06/19 07:03 Baso % (Auto) 0.6 % (0.0-2.0) 01/06/19 07:03 Neut # (Auto) 12.5 K/uL (1.8-7.0) H 01/06/19 07:03 Lymph # (Auto) 0.4 K/uL (1.0-4.3) L 01/06/19 07:03 [place] # (Auto) 0.5 K/uL (0.0-0.8) 01/06/19 07:03 Eos # (Auto) 0.0 K/uL (0.0-0.7) 01/06/19 07:03 Baso # (Auto) 0.1 K/uL (0.0-0.2) 01/06/19 07:03 Neutrophils % (Manual) 94 % (50-75) H 01/06/19 07:03 Band Neutrophils % 2 % (0-2) 12/28/18 19:11 Lymphocytes % (Manual) 3 % (20-40) L 01/06/19 07:03 Monocytes % (Manual) 3 % (0-10) 01/06/19 07:03 Nucleated RBC % 2 % (0-0) H 01/06/19 07:03 Platelet Estimate Normal (NORMAL) 01/06/19 07:03 Large Platelets Present 01/06/19 07:03 Polychromasia Slight 01/06/19 07:03 Hypochromasia (manual) Moderate 01/06/19 07:03 Poikilocytosis (manual Moderate 01/06/19 07:03 Anisocytosis (manual) Marked 01/06/19 07:03 Microcytosis (manual) Slight 01/06/19 07:03 Spherocytes Slight 01/06/19 07:03 Target Cells Slight 01/06/19 07:03 Ovalocytes Slight 01/06/19 07:03 Cindy Cells Slight 01/06/19 07:03 Schistocytes Slight 01/06/19 07:03 PT 13.8 SECONDS (9.7-12.2) H 12/28/18 19:11 INR 1.3 12/28/18 19:11 APTT 36 SECONDS (21-34) H 12/28/18 19:11 pO2 63 mm/Hg (30-55) H 12/28/18 20:05 VBG pH 7.50 (7.32-7.43) H 12/28/18 20:05 VBG pCO2 26 mmHg (40-60) L 12/28/18 20:05 VBG HCO3 23.7 mmol/L 12/28/18 20:05 VBG Total CO2 21.1 mmol/L (22-28) L 12/28/18 20:05 VBG O2 Sat (Calc) 97.2 % (40-65) H 12/28/18 20:05 VBG Base Excess -1.4 mmol/L (0.0-2.0) L 12/28/18 20:05 VBG Potassium 2.6 mmol/L (3.6-5.2) L 12/28/18 20:05 Sodium 145.0 mmol/l (132-148) 12/28/18 20:05 Chloride 117.0 mmol/L (98-107) H 12/28/18 20:05 Glucose 104 mg/dl (75-110) 12/28/18 20:05 Lactate 0.8 mmol/L (0.7-2.1) 12/28/18 20:05 Sodium 131 mmol/L (132-148) L 01/06/19 07:03 Potassium 4.8 mmol/L (3.6-5.2) 01/06/19 07:03 Chloride 94 mmol/L (98-107) L 01/06/19 07:03 Carbon Dioxide 24 mmol/L (22-30) 01/06/19 07:03 Anion Gap 18 (10-20) 01/06/19 07:03 BUN 92 mg/dL (9-20) H 01/06/19 07:03 Creatinine 5.6 mg/dL (0.8-1.5) H 01/06/19 07:03 Est GFR ( Amer) 12 01/06/19 07:03 Est GFR (Non-Af Amer) 10 01/06/19 07:03 Random Glucose 155 mg/dL (75-110) H D 01/06/19 07:03 Uric Acid 5.8 mg/dL (3.5-8.5) 12/30/18 08:26 Calcium 9.1 mg/dl (8.6-10.4) 01/06/19 07:03 Phosphorus 3.8 mg/dL (2.5-4.5) 01/05/19 08:05 Magnesium 2.0 mg/dL (1.6-2.3) 01/05/19 08:05 Iron 14 ug/dL (49-181) L 12/30/18 08:26 TIBC 155 ug/dL (250-450) L 12/30/18 08:26 % Saturation 9 (20-55) L 12/30/18 08:26 Ferritin 1100.0 ng/mL 12/30/18 08:26 Total Bilirubin 0.4 mg/dL (0.2-1.3) 01/06/19 07:03 AST 60 U/L (17-59) H 01/06/19 07:03 ALT 53 U/L (21-72) 01/06/19 07:03 Alkaline Phosphatase 206 U/L (38-126) H 01/06/19 07:03 Total Creatine Kinase 122 U/L (55-170) 12/28/18 19:11 CK-MB (Mass) 1.07 ng/mL (0.0-3.38) 12/28/18 19:11 Troponin I 0.0370 ng/mL (0.00-0.120) 12/28/18 19:11 Total Protein 7.0 g/dL (6.3-8.3) 01/06/19 07:03 Albumin 3.5 g/dL (3.5-5.0) 01/06/19 07:03 Globulin 3.5 gm/dL (2.2-3.9) 01/06/19 07:03 Albumin/Globulin Ratio 1.0 (1.0-2.1) 01/06/19 07:03 Alpha Fetoprotein < 0.8 ng/mL (0.0-7.5) 12/30/18 08:26 Carcinoembryonic Ag 5.2 ng/mL (0-3.0) H 12/30/18 08:26 CA 19-9 Antigen 14.2 U/mL (0-37) 12/30/18 08:26 Prostate Specific Ag 2.58 ng/mL (0.00-4.0) 12/30/18 08:26 Procalcitonin 4.60 NG/ML (0.19-0.49) H 12/30/18 08:26 Venous Blood Potassium 2.6 mmol/L (3.6-5.2) L 12/28/18 20:05 Urine Color Yellow (YELLOW) 12/28/18 20:30 Urine Clarity Hazy (Clear) 12/28/18 20:30 Urine pH 7.0 (5.0-8.0) 12/28/18 20:30 Ur Specific Sachse 1.009 (1.003-1.030) 12/28/18 20:30 Urine Protein 2+ mg/dL (NEGATIVE) H 12/28/18 20:30 Urine Glucose (UA) Normal mg/dL (Normal) 12/28/18 20:30 Urine Ketones Negative mg/dL (NEGATIVE) 12/28/18 20:30 Urine Blood 2+ (NEGATIVE) H 12/28/18 20:30 Urine Nitrate Negative (NEGATIVE) 12/28/18 20:30 Urine Bilirubin Negative (NEGATIVE) 12/28/18 20:30 Urine Urobilinogen 2.0 mg/dL (0.2-1.0) 12/28/18 20:30 Ur Leukocyte Esterase 3+ Viola/uL (Negative) H 12/28/18 20:30 Urine WBC (Auto) 28 /hpf (0-5) H 12/28/18 20:30 Urine RBC (Auto) 30 /hpf (0-3) H 12/28/18 20:30 Urine Bacteria Many (<OCC) H 12/28/18 20:30 Ur Yeast w Hyphae Few /lpf (NEGATIVE) H 12/28/18 20:30 Urine Yeast (Budding) Few /hpf (NEGATIVE) H 12/28/18 20:30 Stool Occult Blood Negative (NEGATIVE) 12/31/18 16:07 Hep Bs Antigen Negative (NEGATIVE) 01/02/19 11:12 Hep Bs Antibody Negative (NEGATIVE) 01/02/19 11:12 Hep B Core IgM Ab Negative (NEGATIVE) 01/02/19 11:12 Influenza Typ A,B (EIA) Negative for flu a/b (NEGATIVE) 12/29/18 04:18 Blood Type O POSITIVE 12/30/18 08:26 Antibody Screen Negative 12/30/18 08:26 - Hospital Course Hospital Course: Pt admitted for fever and leucocytosis. Septic w/u revealed + fungus and Klebsiella Abtx(Zoxyn and Vancomycin) was administered by Dr Mello. Pt was treated w/ allopurinol, colcrys, prednisone. Pt was seen by Dr Bartlett(orthopedic) and recommended conservative treatment. Pt did well with hemodialysis. - Date & Time of H&P Date of H&P: 12/29/18 Time of H&P: 08:00 Discharge Exam - Head Exam Head Exam: ATRAUMATIC, NORMAL INSPECTION, NORMOCEPHALIC - Eye Exam Eye Exam: absent: Scleral icterus - ENT Exam ENT Exam: Mucous Membranes Dry - Neck Exam Neck exam: Full Rom - Respiratory Exam Respiratory Exam: Decreased Breath Sounds - Cardiovascular Exam Cardiovascular Exam: REGULAR RHYTHM - GI/Abdominal Exam GI & Abdominal Exam: Soft - Extremities Exam Extremities exam: joint swelling, tenderness - Neurological Exam Neurological exam: Alert Discharge Plan - Follow Up Plan Condition: FAIR Disposition: HOME/ ROUTINE Instructions: End Stage Kidney Disease (DC), Palpitations (DC), Dialysis and Diet, Leukocytosis (DC) Additional Instructions: Patient is to continue current home medication and to follow up at Dr Harp's office in one week. Referrals: Skye Harp MD [Staff Provider] -
== END 2019-01-06 17:29 | disposition home or self-care (01) | DRG 316 ==
LOC: C.ER 18:26 → C.9E 20:48 → C.6T 22:36
PROVIDERS: ADMIT Internal Medicine; ATTEND Internal Medicine
DX: I12.0 Hypertensive chronic kidney disease with stage 5 chronic kidney disease or end stage renal disease (principal); N18.6 End stage renal disease; N39.0 Urinary tract infection, site not specified; D50.9 Iron deficiency anemia, unspecified; D63.1 Anemia in chronic kidney disease; M17.0 Bilateral primary osteoarthritis of knee; E03.9 Hypothyroidism, unspecified; I25.10 Atherosclerotic heart disease of native coronary artery without angina pectoris; M89.9 Disorder of bone, unspecified; N40.1 Benign prostatic hyperplasia with lower urinary tract symptoms; R62.7 Adult failure to thrive; Z99.2 Dependence on renal dialysis